=== PATIENT | female | born 1925 | race Caucasian/White ===

== ENCOUNTER 2017-04-12 13:58 | Emergency (ER) | payer MEDICARE, OTHER ==
[2017-04-12 14:24] VITALS: BP 155/74
--- NOTE | 2017-04-12 14:29 | EDM.PDOC ---
ED HPI GENERAL MEDICAL PROBLEM - General Chief Complaint: ENT Problem Stated Complaint: SENT BY [place] [facility] Time Seen by Provider: 04/12/17 14:28 Source of Information: Reports: Patient History Limitations: Reports: No Limitations - History of Present Illness INITIAL COMMENTS - FREE TEXT/NARRATIVE: 89-year-old female sent across from [place] [facility] for evaluation of suspected peritonsillar abscess formation. patient complains of right-sided throat pain with swallowing for 2 and one half days. No associated fever or chills. She does wear an upper denture but feels that they fit well. She had tonsils removed when she was a child. Hurts to swallow. She has been using occasional Tylenol tablet for pain relief. Aware of pain up underneath her right mandible in the submandibular gland distribution. patient does have type 2 diabetes controlled with insulin and oral meds. apparently a swab was carried out at the [facility] for Streptococcus and was reported as negative. Onset: Gradual Onset Date: 04/09/17 Duration: Day(s):, Constant, Getting Worse Location: Reports: Face ( right side of throat and upper neck.) Quality: Reports: Ache, Burning, Other Severity: Moderate Improves with: Reports: None ( painful to swallow) Worsens with: Reports: Eating, Other Context: Denies: Activity, Exercise, Lifting ( swallowing), Sick Contact, Trauma , Other Associated Symptoms: Reports: Confusion ( early signs of dementia with short- term memory loss.). Denies: No Other Symptoms, Chest Pain, Cough, cough w sputum Treatments INDUSTRIAL DESIGNER: Reports: Acetaminophen Throat Pain Score (Numeric/FACES): 5 - Related Data Allergies Allergy/AdvReac Type Severity Reaction Status Date / Time codeine Allergy Confusion Verified 04/12/17 16:16 hydromorphone HCl Allergy Cannot Verified 04/12/17 16:16 [From Dilaudid] Remember latex Allergy Swelling Verified 04/12/17 16:16 Home Meds: Home Meds Cholecalciferol (Vitamin D3) [Vitamin D] 1,000 unit PO DAILY 11/17/14 [History] Enalapril [Vasotec] 20 mg PO BID 11/17/14 [History] Fenofibrate Nanocrystallized [Tricor] 145 mg PO DAILY 11/17/14 [History] Metoprolol Tartrate 12.5 mg PO BID 11/17/14 [History] Multivitamin with Minerals [Multivitamins with Minerals] 1 each PO DAILY [History] Omeprazole [Prilosec] 20 mg PO DAILY 11/17/14 [History] Pravastatin [Pravachol] 40 mg PO BEDTIME 11/17/14 [History] Sertraline HCl [Zoloft] 50 mg PO DAILY 11/17/14 [History] SitaGLIPtin [Januvia] 100 mg PO DAILY 11/17/14 [History] Warfarin [Coumadin] 2 mg PO DAILY 11/17/14 [History] Acetaminophen [Tylenol] 650 mg PO Q6H PRN 01/21/15 [History] Dicyclomine [Bentyl] 20 mg PO QID PRN 01/21/15 [History] Hydrochlorothiazide 12.5 mg PO DAILY 01/21/15 [History] Insulin Aspart [Novolog] 5 unit SQ TID 01/21/15 [History] Insulin Glargine,Hum.Rec.Anlog [Lantus Solostar] 21 unit SQ DAILY 01/21/15 [ History] Loperamide [Imodium] 4 mg PO ASDIRECTED PRN 01/21/15 [History] Psyllium [Metamucil] 1.04 gm PO TID PRN 01/21/15 [History] Witch Nikky [Tucks] 1 pad TOP TID PRN 01/21/15 [History] Ciprofloxacin HCl [Cipro] 500 mg PO BID #14 tablet 01/22/15 [Rx] Ondansetron [Zofran ODT] 4 mg PO Q6H PRN #20 tab.dis 01/22/15 [Rx] Clindamycin HCl 300 mg PO TID #21 capsule 04/12/17 [Rx] Past Medical History Cardiovascular History: Reports: High Cholesterol, Hypertension Genitourinary History: Reports: Retention, Urinary, Other (See Below) ( recurrent urinary tract infections) Musculoskeletal History: Reports: Back Pain, Chronic, Neck Pain, Chronic, Osteoarthritis, Osteoporosis Neurological History: Reports: CVA ( is on 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.) Endocrine/Metabolic History: Reports: Diabetes, Type II ( controlled with insulin and oral medications.), Osteoporosis Social & Family History - Tobacco Use Smoking Status *Q: Unknown Ever Smoked Years of Tobacco use: 65 Used Tobacco, but Quit: Yes Month Tobacco Last Used: 7 yrs Second Hand Smoke Exposure: No - Alcohol Use Days Per Week of Alcohol Use: 0 - Recreational Drug Use Recreational Drug Use: No - Living Situation & Occupation Living situation: Reports: Occupation: Retired ED ROS ENT - Review of Systems Review Of Systems: See Below Constitutional: Reports: Decreased Appetite. Denies: Fever, Chills, Malaise, Weakness, Fatigue, Weight Loss HEENT: Reports: Glasses, Throat Pain ( hurts to swallow on the right side 2 and half days) Respiratory: Reports: Shortness of Breath. Denies: Cough ( on exertion) Cardiovascular: Reports: Blood Pressure Problem, Dyspnea on Exertion ( mild in the legs at times), Edema ( chronic hypertension). Denies: Chest Pain, Claudication, Lightheadedness, Orthopnea Endocrine: Reports: Fatigue ( chronically) GI/Abdominal: Reports: Constipation, Diarrhea ( she has a problem with irritable bowel syndrome with intermittent constipation and diarrhea.) : Reports: Incontinence Musculoskeletal: Reports: Neck Pain ( both urge and stress components.), Shoulder Pain, Back Pain, Joint Pain Skin: Reports: No Symptoms Neurological: Reports: Confusion ( confusion is impaired short-term memory.) Psychiatric: Reports: No Symptoms Hematologic/Lymphatic: Reports: No Symptoms ED EXAM, ENT - Physical Exam Exam: See Below Exam Limited By: Other General Appearance: Alert ( she has to look to her daughter a few times to get questions answered is can remember.), WD/WN, No Apparent Distress Eye Exam: Bilateral Eye: Normal Inspection Ears: Normal TMs Mouth/Throat: Other ( I had her remove her upper denture plate. No dental aphthous ulcers are appreciated. The denture was removed with a great deal of difficulty and she has no exudate or paste. there is exudate on the right palatine fold. There is some surrounding erythema. Exam is difficult as she gags easily. No other masses or lesions were identified.) Head: Atraumatic, Normocephalic Neck: Other ( she has tenderness on palpation of the floor the mouth on the right side in the distribution of the submandibular gland. There is no evidenc blockage of the submandibular gland on the right side.) Respiratory/Chest: Respiratory Distress ( mild tachypnea at rest due to some COPD.), Decreased Breath Sounds ( breast sounds are diminished the lower 25% of lung ramirez.). No: Rales, Rhonchi, Wheezing Cardiovascular: Regular Rate, Rhythm, No Gallop, No Murmur, No Rub Extremities: Normal Inspection, Normal Range of Motion, Non-Tender, No Pedal Edema, Normal Capillary Refill Neurological: Alert, Oriented, CN II-XII Intact, Normal Cognition, Normal Gait, Normal Reflexes, No Motor/Sensory Deficits Psychiatric: Normal Affect, Normal Mood Skin: Warm, Dry, Intact, Normal Color, No Rash Course - Vital Signs Last Recorded V/S: Last Vital Signs Temp 36.1 C 04/12/17 14:22 Pulse 65 04/12/17 14:22 Resp 20 04/12/17 14:22 BP 155/74 H 04/12/17 14:22 Pulse Ox 96 04/12/17 14:22 - Orders/Labs/Meds Orders: Active Orders 24 hr Category Date Time Status Soft Tissue Neck wo Cont [CT] Stat Exams 04/12/17 16:09 Taken CULTURE URINE [] Stat Lab 04/12/17 14:40 Received STREP SCRN A RAPID W CULT CONF [RM] Stat Lab 04/12/17 14:45 Ordered Sodium Chloride 0.9% [Normal Saline] 1,000 ml Med 04/12/17 14:45 Active IV ASDIRECTED Medication Orders Sodium Chloride (Normal Saline) 1,000 mls @ 250 mls/hr IV ASDIRECTED GAUDENCIO Last Admin: 04/12/17 15:03 Dose: 100 mls/hr Labs: Laboratory Tests 04/12/17 04/12/17 04/12/17 Range/Units 14:40 15:07 15:07 WBC 10.46 H (3.98-10.04) K/mm3 RBC 5.31 H (3.98-5.22) M/mm3 Hgb 14.8 (11.2-15.7) gm/L Hct 45.3 H (34.1-44.9) % MCV 85.3 (79.4-94.8) fl MCH 27.9 (25.6-32.2) pg MCHC 32.7 (32.2-35.5) g/dl RDW Std Deviation 44.0 (36.4-46.3) fL Plt Count 250 (182-369) K/mm3 MPV 10.7 (9.4-12.3) fl Neutrophils % (Manual) 83 H (40-60) % Band Neutrophils % 1 (0-10) % Lymphocytes % (Manual) 8 L (20-40) % Atypical Lymphs % 0 % Monocytes % (Manual) 7 (2-10) % Eosinophils % (Manual) 1 (0.7-5.8) % Basophils % (Manual) 0 L (0.1-1.2) Platelet Estimate Adequate Plt Morphology Comment Normal RBC Morph Comment Normal PT (8.0-13.0) SECONDS INR Sodium 143 (136-145) mEq/L Potassium 4.2 (3.5-5.1) mEq/L Chloride 103 (98-107) mEq/L Carbon Dioxide 31 (21-32) mEq/L Anion Gap 13.2 (5-15) BUN 55 H (7-18) mg/dL Creatinine 2.2 H (0.55-1.02) mg/dL Est Cr Clr Drug Dosing 12.45 mL/min Estimated GFR (MDRD) 21 (>60) mL/min BUN/Creatinine Ratio 25.0 H (14-18) Glucose 108 (83-115) mg/dL Calcium 9.6 (8.5-10.1) mg/dL Magnesium 2.0 (1.8-2.4) mg/dl Total Bilirubin 0.6 (0.2-1.0) mg/dL AST 27 (15-37) U/L ALT 33 (14-59) U/L Alkaline Phosphatase 72 (46-116) U/L C-Reactive Protein < 0.2 (<1.0) mg/dL Total Protein 7.4 (6.4-8.2) g/dl Albumin 4.0 (3.4-5.0) g/dl Globulin 3.4 gm/dL Albumin/Globulin Ratio 1.2 (1-2) Urine Color Yellow (Yellow) Urine Appearance Clear (Clear) Urine pH 6.5 (5.0-8.0) Ur Specific [place] 1.020 (1.005-1.030) Urine Protein Negative (Negative) Urine Glucose (UA) Negative (Negative) Urine Ketones Negative (Negative) Urine Occult Blood Negative (Negative) Urine Nitrite Negative (Negative) Urine Bilirubin Negative (Negative) Urine Urobilinogen 0.2 (0.2-1.0) Ur Leukocyte Esterase 1+ H (Negative) Urine RBC Not seen (0-5) /hpf Urine WBC 5-10 H (0-5) /hpf Ur Epithelial Cells 0-5 (0-5) /hpf Urine Bacteria Moderate H (FEW) /hpf Urine Mucus Not seen (FEW) /hpf 04/12/ Range/Units 15:07 WBC (3.98-10.04) K/mm3 RBC (3.98-5.22) M/mm3 Hgb (11.2-15.7) gm/L Hct (34.1-44.9) % MCV (79.4-94.8) fl MCH (25.6-32.2) pg MCHC (32.2-35.5) g/dl RDW Std Deviation (36.4-46.3) fL Plt Count (182-369) K/mm3 MPV (9.4-12.3) fl Neutrophils % (Manual) (40-60) % Band Neutrophils % (0-10) % Lymphocytes % (Manual) (20-40) % Atypical Lymphs % % Monocytes % (Manual) (2-10) % Eosinophils % (Manual) (0.7-5.8) % Basophils % (Manual) (0.1-1.2) Platelet Estimate Plt Morphology Comment RBC Morph Comment PT 25.8 H (8.0-13.0) SECONDS INR 2.25 Sodium (136-145) mEq/L Potassium (3.5-5.1) mEq/L Chloride (98-107) mEq/L Carbon Dioxide (21-32) mEq/L Anion Gap (5-15) BUN (7-18) mg/dL Creatinine (0.55-1.02) mg/dL Est Cr Clr Drug Dosing mL/min Estimated GFR (MDRD) (>60) mL/min BUN/Creatinine Ratio (14-18) Glucose (83-115) mg/dL Calcium (8.5-10.1) mg/dL Magnesium (1.8-2.4) mg/dl Total Bilirubin (0.2-1.0) mg/dL AST (15-37) U/L ALT (14-59) U/L Alkaline Phosphatase (46-116) U/L C-Reactive Protein (<1.0) mg/dL Total Protein (6.4-8.2) g/dl Albumin (3.4-5.0) g/dl Globulin gm/dL Albumin/Globulin Ratio (1-2) Urine Color (Yellow) Urine Appearance (Clear) Urine pH (5.0-8.0) Ur Specific [place] (1.005-1.030) Urine Protein (Negative) Urine Glucose (UA) (Negative) Urine Ketones (Negative) Urine Occult Blood (Negative) Urine Nitrite (Negative) Urine Bilirubin (Negative) Urine Urobilinogen (0.2-1.0) Ur Leukocyte Esterase (Negative) Urine RBC (0-5) /hpf Urine WBC (0-5) /hpf Ur Epithelial Cells (0-5) /hpf Urine Bacteria (FEW) /hpf Urine Mucus (FEW) /hpf Meds: Medications Generic Name Dose Route Start Last Admin Trade Name Freq PRN Reason Stop Dose Admin Sodium Chloride 1,000 mls @ 250 mls/hr 04/12/17 14:45 04/12/17 15:03 Normal Saline IV 100 mls/hr ASDIRECTED GAUDENCIO Administration Discontinued Medications Generic Name Dose Route Start Last Admin Trade Name Freq PRN Reason Stop Dose Admin Clindamycin HCl 300 mg 04/12/17 17:19 04/12/17 17:52 Cleocin PO 04/12/17 17:20 300 mg ONETIME ONE Administration Fentanyl 50 mcg 04/12/17 16:11 Sublimaze IVPUSH 04/12/17 16:12 ONETIME ONE Ceftriaxone Sodium 1 gm/ 100 mls @ 200 mls/hr 04/12/17 14:42 04/12/17 15:03 Sodium Chloride IV 04/12/17 15:11 200 mls/hr ONETIME ONE Administration Lidocaine HCl Confirm 04/12/17 14:51 04/12/17 15:04 Xylocaine-Mpf 1% Administered 04/12/17 14:52 1 ml Dose Administration 2 mls @ as directed .ROUTE .STK-MED ONE - Radiology Interpretation Free Text/Narrative:: 89-year-old female presents the ED with painful sore throat on the right side with pain with swallowing 2 and half days. No associated fever or chills. She' s had previous tonsillectomy as a child. she was seen at the [facility] initially and identified to have exudate on the right glossal palatine fold. Apparently a strep screen was carried out there and was reportedly negative. she has tenderness on palpation of the floor of the mouth on the right side and submandibular gland appears to be tender but minimally enlarged. plan repeat labs rapid strep screen. If her kidney function is okay we will have soft tissue CT done of her neck if not I will place her on antibiotics on speculation. I will start her on Rocephin 1 g IV after blood cultures 2 been collected. Of note she is afebrile on the initial exam - Re-Assessments/Exams Free Text/Narrative Re-Assessment/Exam: 04/12/17 16:11 labs are back and reveal an elevated white count at 10.46 with 83 % neutrophils and 1% band cells. Hemoglobin is 14.8 hematocrit is 45.3 platelet is 250,000 chemistry shows a sodium of 143 potassium 4.2 chloride 103 bicarbonate is 31. anion gap is 13.2 BUNs 55 creatinine is 2.2 indicating she is a bit on the dry side. urine shows 1+ positive leukocyte esterase and 510 process per per field with moderate bacteria urine culture was ordered. her PT today is 25.8 with an INR of 2.25 considered therapeutic. she still having quite a bit of pain and I will therefore give her fentanyl 50 g IV before the CT is done. CT will have to be done of soft tissue of the neck without IV contrast due to creatinine of 2.2 04/12/17 17:20 CT soft tissues of the neck is been completed without IV contrast. I felt there was a soft tissue mass in the subglottic area the right glossal palatine fold the red rubber has read the examination as unremarkable and normal. 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 He can continue Motrin 600 mg every 6-8 hours as necessary for pain relief and/or Tylenol 650 mg every 4-6 hours for pain relief. Tylenol would be safer for her kidneys. she is to expect improvement in throat swelling and pain in the next 4872 hours. If not she needs to be reviewed. Departure - Departure Time of Disposition: 17:51 Disposition: Home, Self-Care 01 Condition: Fair Clinical Impression: Pharyngitis Qualifiers: Pharyngitis/tonsillitis etiology: other specified organisms Qualified Code(s): J02.8 - Acute pharyngitis due to other specified organisms - Discharge Information Prescriptions: Clindamycin HCl 300 mg PO TID #21 capsule Instructions: Pharyngitis, [id number] Referrals: Fly German MD [Primary Care Provider] - Forms: ED Department Discharge Additional Instructions: Evaluation in the emergency department today in regards to infection that has developed in your throat on the right side. Infection is involving the glossal palatine fold the tissue behind where your tonsil used to be. concern was for an abscess developing in this area and therefore you were sent over from [facility] in this regard. CT scan of the area was carried out without any contrast as your kidneys proved to not be functioning well enough to accept any intravenous contrast agents. the CT has been completed and is does does not confirm any abscess in this area only soft tissue swelling. therefore you should respond to antibiotic therapy in initial antibiotic was given intravenously in the ED : Rocephin 1 g. you need to take pill form of antibiotic clindamycin 300 mg 3 times daily for the next 7 days starting tomorrow morning to fully clear up this infection. expect marked improvement over the next 48-72 hours. If not you should be seen again. Suggest Tylenol 650 mg every 4 hours as necessary for fever and/or pain relief. Could Motrin or ibuprofen could be used but it is harder on your kidneys. Continue to try and drink as much fluids as possible. - My Orders Last 24 Hours: My Active Orders 04/12/17 14:40 CULTURE URINE [RM] Stat 04/12/17 14:45 STREP SCRN A RAPID W CULT CONF [RM] Stat Sodium Chloride 0.9% [Normal Saline] 1,000 ml IV ASDIRECTED 04/12/17 16:09 Soft Tissue Neck wo Cont [CT] Stat - Assessment/Plan Last 24 Hours: My Active Orders 04/12/17 14:40 CULTURE URINE [RM] Stat 04/12/17 14:45 STREP SCRN A RAPID W CULT CONF [RM] Stat Sodium Chloride 0.9% [Normal Saline] 1,000 ml IV ASDIRECTED 04/12/17 16:09 Soft Tissue Neck wo Cont [CT] Stat
[2017-04-12] MEDS ORDERED: cefTRIAXone 1 GM in Sodium Chloride 0.9% 100 ML IV ONE (14:42)
[2017-04-12] MEDS ORDERED: Sodium Chloride 0.9% 1,000 ML IV SCH (14:45)
[2017-04-12] MEDS ORDERED: Lidocaine 1% 2 ML ONE (14:51)
[2017-04-12] MEDS ORDERED: fentaNYL 100 MCG/2 ML SDV IVPUSH ONE (16:11)
[2017-04-12] MEDS ORDERED: Clindamycin HCl 150 MG Cap PO ONE (17:19)
--- NOTE | 2017-04-13 17:52 | CT ---
CT neck Technique: Multiple axial sections were obtained from above the external auditory canals inferiorly to the lung apices. Intravenous contrast not utilized. Reconstructed coronal and sagittal images were obtained. Findings: Partially seen old left occipital lobe infarct is seen. Parotid and submandibular salivary glands appear within normal limits. Thyroid gland shows no discrete abnormality. No neck adenopathy is seen. Degenerative change is scattered throughout the cervical spine. Emphysematous change is noted within the upper lungs. 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 No discrete parapharyngeal abnormalities are seen. Impression: 1. Partially visualized old left occipital lobe infarct. 2. Other incidental findings. 3. No acute abnormality appreciated on noncontrast CT study of the neck. Diagnostic code #2 I agree with preliminary report issued by [facility]. Radiologic ([facility] preliminary report dictated on 04/12/17, 6:25 PM Central Time)
== END 2017-04-12 18:13 | disposition home or self-care (01) ==
LOC: JD.ED 13:58 → SUPCPDRO 13:58 → JD.ED 18:13
DX: J02.8 Acute pharyngitis due to other specified organisms (principal); E78.00 Pure hypercholesterolemia, unspecified; I10 Essential (primary) hypertension; E11.9 Type 2 diabetes mellitus without complications; Z88.5 Allergy status to narcotic agent; Z91.040 Latex allergy status; Z79.899 Other long term (current) drug therapy; Z79.01 Long term (current) use of anticoagulants; Z79.4 Long term (current) use of insulin; Z86.73 Personal history of transient ischemic attack (TIA), and cerebral infarction without residual deficits
CPT/HCPCS: 36415; 70490; 80053; 81001; 83735; 85025; 85610; 86140; 87086; 87088; 87186; 96361; 96365; 99284; A9270; J0696; J7030; J7040

== ENCOUNTER 2017-04-16 11:42 | Emergency (ER) | payer MEDICARE, OTHER ==
[2017-04-16] MEDS ORDERED: Sodium Chloride 0.9% 10 ML Syringe FLUSH PRN (12:08)
[2017-04-16] MEDS ORDERED: fentaNYL 100 MCG/2 ML SDV IVPUSH ONE (12:10)
[2017-04-16] MEDS ORDERED: Sodium Chloride 0.9% 1,000 ML IV ONE (12:10)
--- NOTE | 2017-04-16 12:11 | EDM.PDOC ---
ED HPI GENERAL MEDICAL PROBLEM - General Chief Complaint: ENT Problem Stated Complaint: Throat pain Time Seen by Provider: 04/16/17 11:55 Source of Information: Reports: Patient, Family, Old Records, RN Notes Reviewed History Limitations: Reports: No Limitations - History of Present Illness INITIAL COMMENTS - FREE TEXT/NARRATIVE: 89 year old female presents to the ED with complaints of 1 week history of throat pain and pain with swallowing. The pain radiates into her left jaw and ear. She was evaluated in the ED on 04/12/17 for the same complaint. She had a CT which is negative for retropharyngeal abscess. She was started on clindamycin as an outpatient and was discharged home. She returns today due to increasing throat pain. She has been taking Tylenol for pain with minimal relief. No known fever. She denies chest pain, shortness of breath, cough, vomiting, or diarrhea. She had a strep test and throat culture performed at [place] which was reportedly negative. She is a diabetic. Throat Pain Score (Numeric/FACES): 6 - Related Data Allergies Allergy/AdvReac Type Severity Reaction Status Date / Time codeine Allergy Confusion Verified 04/16/17 11:55 hydromorphone HCl Allergy Cannot Verified 04/16/17 11:55 [From Dilaudid] Remember latex Allergy Swelling Verified 04/16/17 11:55 Home Meds: Home Meds Cholecalciferol (Vitamin D3) [Vitamin D] 1,000 unit PO DAILY 11/17/14 [History] Enalapril [Vasotec] 20 mg PO BID 11/17/14 [History] Fenofibrate Nanocrystallized [Tricor] 145 mg PO DAILY 11/17/14 [History] Metoprolol Tartrate 12.5 mg PO BID 11/17/14 [History] Multivitamin with Minerals [Multivitamins with Minerals] 1 each PO DAILY [History] Omeprazole [Prilosec] 20 mg PO DAILY 11/17/14 [History] Pravastatin [Pravachol] 40 mg PO BEDTIME 11/17/14 [History] Sertraline HCl [Zoloft] 50 mg PO DAILY 11/17/14 [History] SitaGLIPtin [Januvia] 100 mg PO DAILY 11/17/14 [History] Warfarin [Coumadin] 2 mg PO DAILY 11/17/14 [History] Insulin Aspart [Novolog] 5 unit SQ TID 01/21/15 [History] Insulin Glargine,Hum.Rec.Anlog [Lantus Solostar] 26 unit SQ DAILY 01/21/15 [ History] Loperamide [Imodium] 4 mg PO ASDIRECTED PRN 01/21/15 [History] Psyllium [Metamucil] 1.04 gm PO TID PRN 01/21/15 [History] Witch Nikky [Tucks] 1 pad TOP TID PRN 01/21/15 [History] Ondansetron [Zofran ODT] 4 mg PO Q6H PRN #20 tab.dis 01/22/15 [Rx] Clindamycin HCl 300 mg PO TID #21 capsule 04/12/17 [Rx] Furosemide [Lasix] 40 mg PO DAILY 04/16/17 [History] Past Medical History HEENT History: Reports: Hard of Hearing, Impaired Vision Cardiovascular History: Reports: High Cholesterol, Hypertension Gastrointestinal History: Reports: GERD Genitourinary History: Reports: Retention, Urinary, Other (See Below) ( recurrent urinary tract infections) Musculoskeletal History: Reports: Back Pain, Chronic, Neck Pain, Chronic, Osteoarthritis, Osteoporosis Neurological History: Reports: CVA ( is on 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.) Other Neuro History: left occipital infarc Psychiatric History: Reports: Anxiety, Dementia Endocrine/Metabolic History: Reports: Diabetes, Type II ( controlled with insulin and oral medications.), Osteoporosis Social & Family History - Tobacco Use Smoking Status *Q: Unknown Ever Smoked Years of Tobacco use: 65 Used Tobacco, but Quit: Yes Month Tobacco Last Used: 7 yrs Second Hand Smoke Exposure: No - Caffeine Use Caffeine Use: Reports: Coffee - Alcohol Use Days Per Week of Alcohol Use: 0 - Recreational Drug Use Recreational Drug Use: No - Living Situation & Occupation Living situation: Reports: Occupation: Retired ED ROS ENT - Review of Systems Review Of Systems: See Below Constitutional: Reports: No Symptoms. Denies: Fever, Chills, Diaphoresis HEENT: Reports: Throat Pain, Other (jaw pain). Denies: Rhinitis, Sinus Problem Respiratory: Reports: No Symptoms. Denies: Shortness of Breath, Cough Cardiovascular: Reports: No Symptoms. Denies: Chest Pain, Edema GI/Abdominal: Reports: No Symptoms. Denies: Abdominal Pain, Diarrhea, Nausea, Vomiting Skin: Reports: No Symptoms. Denies: Rash Neurological: Reports: No Symptoms ED EXAM, ENT - Physical Exam Exam: See Below Exam Limited By: No Limitations General Appearance: Alert, WD/WN, No Apparent Distress Ears: Normal External Exam, Normal Canal, Hearing Grossly Normal, Normal TMs Nose: Normal Inspection, Normal Mucousa Mouth/Throat: Pharyngeal Erythema, Throat Pain, Throat Swelling, Other ( peritonsillar exudates ). No: Hoarse Voice, Muffled Voice, Uvular Deviation Head: Atraumatic, Normocephalic. No: Facial Tenderness Neck: Normal Inspection, Supple, Non-Tender, Full Range of Motion. No: Lymphadenopathy (L), Lymphadenopathy (R) Respiratory/Chest: No Respiratory Distress, Lungs Clear, Normal Breath Sounds, No Accessory Muscle Use Cardiovascular: Normal Peripheral Pulses, Regular Rate, Rhythm, No Edema, No Murmur GI/Abdominal: Normal Bowel Sounds, Soft, Non-Tender, No Distention Neurological: Alert, Oriented, Normal Cognition, Confused (forgetful) Skin: Warm, Dry, Intact Course - Vital Signs Last Recorded V/S: Last Vital Signs Temp 97.8 F 04/16/17 11:55 Pulse 78 04/16/17 14:39 Resp 18 04/16/17 14:39 BP 136/80 04/16/17 14:39 Pulse Ox 98 04/16/17 15:15 - Orders/Labs/Meds Orders: Active Orders 24 hr Category Date Time Status Peripheral IV Care [RC] . DIRECTED Care 04/16/17 12:09 Active RT Aerosol Therapy [RC] ASDIRECTED Care 04/16/17 15:15 Active CULTURE BLOOD [BC] Stat Lab 04/16/17 12:45 Received CULTURE BLOOD [BC] Stat Lab 04/16/17 12:45 Received CULTURE STREP A CONFIRMATION [RM] Stat Lab 04/16/17 15:28 Results CULTURE THROAT [RM] Stat Lab 04/16/17 15:28 Ordered MYCOPLASMA PNEUMONIAE IGM AB [CHEM] Stat Lab 04/16/17 16:00 Received RESPIRATORY PANEL BY PCR [MREF] Stat Lab 04/16/17 15:14 Uncollected STREP PNEUMONIAE ANTIGEN [MREF] Stat Lab 04/16/17 15:13 Uncollected STREP SCRN A RAPID W CULT CONF [RM] Stat Lab 04/16/17 15:28 Results UA W/MICROSCOPIC [URIN] Stat Lab 04/16/17 16:30 Results Sodium Chloride 0.9% [Normal Saline] 1,000 ml Med 04/16/17 12:10 Active IV ONETIME Sodium Chloride 0.9% [Saline Flush] Med 04/16/17 12:08 Active 10 ml FLUSH ASDIRECTED PRN Blood Culture x2 Reflex Set [OM.PC] Stat Oth 04/16/17 12:09 Ordered Peripheral IV Insertion Adult [OM.PC] Stat Oth 04/16/17 12:09 Ordered Medication Orders Sodium Chloride (Normal Saline) 1,000 mls @ 125 mls/hr IV ONETIME ONE Stop: 04/16/17 20:09 Last Admin: 04/16/17 12:50 Dose: 125 mls/hr Sodium Chloride (Saline Flush) 10 ml FLUSH ASDIRECTED PRN PRN Reason: Keep Vein Open Last Admin: 04/16/17 12:51 Dose: 10 ml Labs: Laboratory Tests 04/16/17 04/16/17 04/16/17 Range/Units 12:45 12:45 12:45 WBC 10.81 H (3.98-10.04) K/mm3 RBC 5.37 H (3.98-5.22) M/mm3 Hgb 15.0 (11.2-15.7) gm/L Hct 46.0 H (34.1-44.9) % MCV 85.7 (79.4-94.8) fl MCH 27.9 (25.6-32.2) pg MCHC 32.6 (32.2-35.5) g/dl RDW Std Deviation 45.1 (36.4-46.3) fL Plt Count 258 (182-369) K/mm3 MPV 10.3 (9.4-12.3) fl Neutrophils % (Manual) 81 H (40-60) % Band Neutrophils % 1 (0-10) % Lymphocytes % (Manual) 11 L (20-40) % Atypical Lymphs % 0 % Monocytes % (Manual) 7 (2-10) % Eosinophils % (Manual) 0 L (0.7-5.8) % Basophils % (Manual) 0 L (0.1-1.2) Platelet Estimate Adequate RBC Morph Comment Normal PT (8.0-13.0) SECONDS INR Sodium 140 (136-145) mEq/L Potassium 4.6 (3.5-5.1) mEq/L Chloride 103 (98-107) mEq/L Carbon Dioxide 30 (21-32) mEq/L Anion Gap 11.6 (5-15) BUN 47 H (7-18) mg/dL Creatinine 1.8 H (0.55-1.02) mg/dL Est Cr Clr Drug Dosing 15.22 mL/min Estimated GFR (MDRD) 26 (>60) mL/min BUN/Creatinine Ratio 26.1 H (14-18) Glucose 124 H (83-115) mg/dL Lactic Acid 1.4 (0.4-2.0) mmol/L Calcium 9.5 (8.5-10.1) mg/dL Total Bilirubin 0.6 (0.2-1.0) mg/dL AST 9 L (15-37) U/L ALT 23 (14-59) U/L Alkaline Phosphatase 68 (46-116) U/L C-Reactive Protein 0.3 (<1.0) mg/dL Total Protein 7.5 (6.4-8.2) g/dl Albumin 3.6 (3.4-5.0) g/dl Globulin 3.9 gm/dL Albumin/Globulin Ratio 0.9 L (1-2) Urine Color (Yellow) Urine Appearance (Clear) Urine pH (5.0-8.0) Ur Specific [place] (1.005-1.030) Urine Protein (Negative) Urine Glucose (UA) (Negative) Urine Ketones (Negative) Urine Occult Blood (Negative) Urine Nitrite (Negative) Urine Bilirubin (Negative) Urine Urobilinogen (0.2-1.0) Ur Leukocyte Esterase (Negative) Monoscreen (NEGATIVE) 04/16/17 04/16/17 04/16/17 Range/Units 12:45 12:45 16:30 WBC (3.98-10.04) K/mm3 RBC (3.98-5.22) M/mm3 Hgb (11.2-15.7) gm/L Hct (34.1-44.9) % MCV (79.4-94.8) fl MCH (25.6-32.2) pg MCHC (32.2-35.5) g/dl RDW Std Deviation (36.4-46.3) fL Plt Count (182-369) K/mm3 MPV (9.4-12.3) fl Neutrophils % (Manual) (40-60) % Band Neutrophils % (0-10) % Lymphocytes % (Manual) (20-40) % Atypical Lymphs % % Monocytes % (Manual) (2-10) % Eosinophils % (Manual) (0.7-5.8) % Basophils % (Manual) (0.1-1.2) Platelet Estimate RBC Morph Comment PT 38.3 H (8.0-13.0) SECONDS INR 3.26 Sodium (136-145) mEq/L Potassium (3.5-5.1) mEq/L Chloride (98-107) mEq/L Carbon Dioxide (21-32) mEq/L Anion Gap (5-15) BUN (7-18) mg/dL Creatinine (0.55-1.02) mg/dL Est Cr Clr Drug Dosing mL/min Estimated GFR (MDRD) (>60) mL/min BUN/Creatinine Ratio (14-18) Glucose (83-115) mg/dL Lactic Acid (0.4-2.0) mmol/L Calcium (8.5-10.1) mg/dL Total Bilirubin (0.2-1.0) mg/dL AST (15-37) U/L ALT (14-59) U/L Alkaline Phosphatase (46-116) U/L C-Reactive Protein (<1.0) mg/dL Total Protein (6.4-8.2) g/dl Albumin (3.4-5.0) g/dl Globulin gm/dL Albumin/Globulin Ratio (1-2) Urine Color Yellow (Yellow) Urine Appearance Slt cloudy H (Clear) Urine pH 6.5 (5.0-8.0) Ur Specific [place] 1.015 (1.005-1.030) Urine Protein Negative (Negative) Urine Glucose (UA) Negative (Negative) Urine Ketones Negative (Negative) Urine Occult Blood Negative (Negative) Urine Nitrite Negative (Negative) Urine Bilirubin Negative (Negative) Urine Urobilinogen 0.2 (0.2-1.0) Ur Leukocyte Esterase Trace H (Negative) Monoscreen Negative (NEGATIVE) Meds: Medications Generic Name Dose Route Start Last Admin Trade Name Freq PRN Reason Stop Dose Admin Sodium Chloride 1,000 mls @ 125 mls/hr 04/16/17 12:10 04/16/17 12:50 Normal Saline IV 04/16/17 20:09 125 mls/hr ONETIME ONE Administration Sodium Chloride 10 ml 04/16/17 12:08 04/16/17 12:51 Saline Flush FLUSH 10 ml ASDIRECTED PRN Administration Keep Vein Open Discontinued Medications Generic Name Dose Route Start Last Admin Trade Name Freq PRN Reason Stop Dose Admin Albuterol 2.5 mg 04/16/17 15:15 04/16/17 15:23 Proventil Neb Soln NEB 04/16/17 15:16 2.5 mg ONETIME ONE Administration Fentanyl 50 mcg 04/16/17 12:10 04/16/17 12:48 Sublimaze IVPUSH 04/16/17 12:11 50 mcg ONETIME ONE Administration Ceftriaxone Sodium 1 gm/ 100 mls @ 200 mls/hr 04/16/17 13:22 04/16/17 13:38 Sodium Chloride IV 04/16/17 13:51 200 mls/hr ONETIME ONE Administration - Re-Assessments/Exams Free Text/Narrative Re-Assessment/Exam: CBC reveals WBC of 10.81 with no bandemia. CRP and lactic acid are WNL. CMP reveals glucose of 124, creatinine 1.8, BUN 47, GFR 26. Mononucleosis negative. Repeat throat culture was obtained. Negative for strep. ROLO ordered of the throat and is negative for yeast. CTs of maxillofacial bones and soft tissue neck read by Dr. Leon. Impression: The patient's oxygen saturation on arrival was dropping into the 70s. She required oxygen at 3L to maintain SaO2 > 90%. She has no history of pulmonary disease and does not wear oxygen at home. We administered an Albuterol neb and then weaned the oxygen. After the albuterol neb, she continued to drop her SaO2 into the 80s. Chest x-ray read by Edward. Impression: Heart size appears within normal limits. Tortuous thoracic aorta is seen. Lung markings are slightly increased which are believed to be chronic. No acute infiltrates are seen. Scoliosis is incidentally noted within the spine. Surgical clips are seen from prior cholecystectomy. Neck Impression: 1. Incidental findings. Nothing acute is identified on CT study of the neck. No significant change is seen from previous exam. Maxillofacial Impression: 1. Minimal degenerative change within the temporomandibular joints on the right side. 2. CT facial bone exam is otherwise unremarkable. The cause of the patient's symptoms is unclear. She has failed outpatient antibiotics and is requiring oxygen. I spoke to Dr. Sorto who agrees that this patient needs to be admitted for further workup. I spoke to our Hospitalist Dr. Montgomery who feels the patient needs urgent ENT referral and transfer to [facility]. Patient and daughter requested [facility] as they are established with Dr. German. I called [facility] and spoke to ENT specialist Dr. Michael regarding this patient. He is happy to see her in consult and agrees with urgent referral. I then spoke to Dr. Blanchard, Hospitalist. Dr. Blanchard accepted care of the patient. He plans to admit her to observation upon arrival. Patient will be transported via [facility]. Patient and family notified of plan of care. Departure - Departure Time of Disposition: 17:01 Disposition: DC/Tfer to [facility] 02 Condition: Fair Clinical Impression: Low oxygen saturation, Erythema of pharynx Pharyngitis Qualifiers: Pharyngitis/tonsillitis etiology: other specified organisms Qualified Code(s): J02.8 - Acute pharyngitis due to other specified organisms - Discharge Information Referrals: Fly German MD [Primary Care Provider] - Forms: ED Department Discharge - My Orders Last 24 Hours: My Active Orders 04/16/17 12:08 Sodium Chloride 0.9% [Saline Flush] 10 ml FLUSH ASDIRECTED PRN 04/16/17 12:09 Peripheral IV Care [RC] . DIRECTED Blood Culture x2 Reflex Set [OM.PC] Stat Peripheral IV Insertion Adult [OM.PC] Stat 04/16/17 12:10 Sodium Chloride 0.9% [Normal Saline] 1,000 ml IV ONETIME 04/16/17 12:45 CULTURE BLOOD [BC] Stat CULTURE BLOOD [BC] Stat 04/16/17 15:13 STREP PNEUMONIAE ANTIGEN [MREF] Stat 04/16/17 15:14 RESPIRATORY PANEL BY PCR [MREF] Stat 04/16/17 15:15 RT Aerosol Therapy [RC] ASDIRECTED 04/16/17 15:28 CULTURE STREP A CONFIRMATION [RM] Stat CULTURE THROAT [RM] Stat STREP SCRN A RAPID W CULT CONF [RM] Stat 04/16/17 16:00 MYCOPLASMA PNEUMONIAE IGM AB [CHEM] Stat 04/16/17 16:30 UA W/MICROSCOPIC [URIN] Stat - Assessment/Plan Last 24 Hours: My Active Orders 04/16/17 12:08 Sodium Chloride 0.9% [Saline Flush] 10 ml FLUSH ASDIRECTED PRN 04/16/17 12:09 Peripheral IV Care [RC] . DIRECTED Blood Culture x2 Reflex Set [OM.PC] Stat Peripheral IV Insertion Adult [OM.PC] Stat 04/16/17 12:10 Sodium Chloride 0.9% [Normal Saline] 1,000 ml IV ONETIME 04/16/17 12:45 CULTURE BLOOD [BC] Stat CULTURE BLOOD [BC] Stat 04/16/17 15:13 STREP PNEUMONIAE ANTIGEN [MREF] Stat 04/16/17 15:14 RESPIRATORY PANEL BY PCR [MREF] Stat 04/16/17 15:15 RT Aerosol Therapy [RC] ASDIRECTED 04/16/17 15:28 CULTURE STREP A CONFIRMATION [RM] Stat CULTURE THROAT [RM] Stat STREP SCRN A RAPID W CULT CONF [RM] Stat 04/16/17 16:00 MYCOPLASMA PNEUMONIAE IGM AB [CHEM] Stat 04/16/17 16:30 UA W/MICROSCOPIC [URIN] Stat
--- NOTE | 2017-04-16 12:52 | CR ---
Chest: Two views of the chest were obtained. Comparison: Previous chest x-ray of 11/17/14. Heart size appears within normal limits. Tortuous thoracic aorta is seen. Lung markings are slightly increased which are believed to be chronic. No acute infiltrates are seen. Scoliosis is incidentally noted within the spine. Surgical clips are seen from prior cholecystectomy. Impression: 1. Incidental findings. Nothing acute is seen. Diagnostic code #2
[2017-04-16] MEDS ORDERED: cefTRIAXone 1 GM in Sodium Chloride 0.9% 100 ML IV ONE (13:22)
[2017-04-16 14:40] VITALS: BP 136/80
--- NOTE | 2017-04-16 14:48 | CT ---
CT facial bones Technique: Multiple axial sections were obtained through the facial bones. Reconstructed coronal and sagittal images were reviewed. Findings: Paranasal sinuses are clear. No air-fluid levels are seen. Minimal degenerative change is noted within the right temporomandibular joint. No facial bone fracture is seen. Impression: 1. Minimal degenerative change within the temporomandibular joints on the right side. 2. CT facial bone exam is otherwise unremarkable. Diagnostic code #2
[2017-04-16] MEDS ORDERED: Albuterol 0.083% 2.5 MG/3 ML Neb Soln NEB ONE (15:15)
--- NOTE | 2017-04-16 15:37 | CT ---
CT neck Technique: Multiple axial sections through the neck were obtained. Study slightly diminished in details due to lack of intravenous contrast. Reconstructed coronal and sagittal images were obtained. Comparison: Previous CT neck exam of 04/12/17. Findings: Parotid and submandibular salivary glands appear within normal limits. Small normal-appearing lymph nodes are scattered within the neck. Thyroid gland shows no discrete abnormality. No neck mass is seen. Old left occipital lobe infarct is again seen. Emphysematous change is identified within both upper lungs. Scattered degenerative change is seen within the spine. Impression: 1. Incidental findings. Nothing acute is identified on CT study of the neck. No significant change is seen from previous exam. Diagnostic code #2
[2017-04-16] MEDS ORDERED: Ondansetron 4 MG/2 ML SDV IVPUSH ONE (17:31)
== END 2017-04-16 18:10 ==
LOC: JD.ED 11:42
DX: J02.8 Acute pharyngitis due to other specified organisms (principal); R09.02 Hypoxemia; E78.00 Pure hypercholesterolemia, unspecified; I10 Essential (primary) hypertension; K21.9 Gastro-esophageal reflux disease without esophagitis; M19.90 Unspecified osteoarthritis, unspecified site; Z86.73 Personal history of transient ischemic attack (TIA), and cerebral infarction without residual deficits; Z88.5 Allergy status to narcotic agent; Z91.040 Latex allergy status; Z79.899 Other long term (current) drug therapy; Z79.4 Long term (current) use of insulin; Z79.01 Long term (current) use of anticoagulants; E11.9 Type 2 diabetes mellitus without complications
CPT/HCPCS: 36415; 70486; 70490; 71020; 80053; 81001; 83605; 85025; 85610; 86140; 86308; 86738; 87040; 87070; 87220; 87430; 87486; 87581; 87633; 87798; 87899; 94664; 96361; 96365; 96375; 99285; J0696; J2405; J3010; J7030; J7040; J7050; 87081; 99284

== ENCOUNTER 2017-05-01 08:50 | Emergency (ER) | payer MEDICARE, OTHER ==
[2017-05-01] MEDS ORDERED: Sodium Chloride 0.9% 10 ML Syringe FLUSH PRN (09:10)
[2017-05-01] MEDS ORDERED: predniSONE 20 MG Tab PO ONE (09:12)
--- NOTE | 2017-05-01 09:13 | EDM.PDOC ---
ED HPI GENERAL MEDICAL PROBLEM - General Chief Complaint: Neuro Symptoms/Deficits Stated Complaint: POSSIBLE STROKE Time Seen by Provider: 05/01/17 09:08 Source of Information: Reports: Patient History Limitations: Reports: No Limitations - History of Present Illness INITIAL COMMENTS - FREE TEXT/NARRATIVE: 89 y/o F with hx prior CVA (had R sided numbness and vision changes), memory loss, HTN, DM, presents with R facial droop. Was normal when she went to bed last night. Noticed it when she looked in the mirror this AM. Has droop/ weakness of R upper and lower face. Can't shut R eye tight. No additional weakness. No difficulty speaking/swallowing. No vision changes. No extremity weakness or numbness. No hx prior similar symptoms. Has moderate headache, diffuse, present x a few days, taking APAP for BUI with no relief. Doesn't usually get headache. Has also had a sore throat x many days, was seen here, rx clinda at some point, and was also hospitalized in [place] for kidney injury which daughter reports was thought due to dehydration from throat pain. Released after 3 days. Daughter is under impressoin that kidneys are back to normal now. Sore throat resolved. Continues to have pain in R ear area. Headache Pain Score (Numeric/FACES): 8 - Related Data Allergies Allergy/AdvReac Type Severity Reaction Status Date / Time codeine Allergy Confusion Verified 05/01/17 09:06 hydromorphone HCl Allergy Cannot Verified 05/01/17 09:06 [From Dilaudid] Remember latex Allergy Swelling Verified 05/01/17 09:06 Home Meds: Home Meds Cholecalciferol (Vitamin D3) [Vitamin D] 1,000 unit PO DAILY 11/17/14 [History] Enalapril [Vasotec] 20 mg PO BID 11/17/14 [History] Fenofibrate Nanocrystallized [Tricor] 145 mg PO DAILY 11/17/14 [History] Metoprolol Tartrate 12.5 mg PO BID 11/17/14 [History] Multivitamin with Minerals [Multivitamins with Minerals] 1 each PO DAILY [History] Omeprazole [Prilosec] 20 mg PO DAILY 11/17/14 [History] Pravastatin [Pravachol] 40 mg PO BEDTIME 11/17/14 [History] Sertraline HCl [Zoloft] 50 mg PO DAILY 11/17/14 [History] SitaGLIPtin [Januvia] 100 mg PO DAILY 11/17/14 [History] Warfarin [Coumadin] 2 mg PO DAILY 11/17/14 [History] Insulin Aspart [Novolog] 5 unit SQ TID 01/21/15 [History] Insulin Glargine,Hum.Rec.Anlog [Lantus Solostar] 26 unit SQ DAILY 01/21/15 [ History] Psyllium [Metamucil] 1.04 gm PO TID PRN 01/21/15 [History] Witch Nikky [Tucks] 1 pad TOP TID PRN 01/21/15 [History] Clindamycin HCl 300 mg PO TID #21 capsule 04/12/17 [Rx] Furosemide [Lasix] 40 mg PO DAILY 04/16/17 [History] Diphenhyd/Lidocaine/Nystatin [Magic Mouthwash] 30 ml PO QID PRN 05/01/17 [ History] Mineral Oil/Petrolatum Oint [Lacri-Lube S.O.P Oint] 3.5 gm EYEBOTH BEDTIME #1 tube 05/01/17 [Rx] predniSONE [Prednisone] 50 mg PO DAILY #5 tablet 05/01/17 [Rx] valACYclovir [Valtrex] 1,000 mg PO TID #21 tab 05/01/17 [Rx] Past Medical History HEENT History: Reports: Hard of Hearing, Impaired Vision Cardiovascular History: Reports: High Cholesterol, Hypertension Gastrointestinal History: Reports: GERD Genitourinary History: Reports: Retention, Urinary, Other (See Below) Musculoskeletal History: Reports: Back Pain, Chronic, Neck Pain, Chronic, Osteoarthritis, Osteoporosis Neurological History: Reports: CVA Other Neuro History: left occipital infarc Psychiatric History: Reports: Anxiety, Dementia Endocrine/Metabolic History: Reports: Diabetes, Type II, Osteoporosis Social & Family History - Tobacco Use Smoking Status *Q: Never Smoker Years of Tobacco use: 63 Used Tobacco, but Quit: Yes Month Tobacco Last Used: 7 yrs Second Hand Smoke Exposure: No - Caffeine Use Caffeine Use: Reports: Coffee - Alcohol Use Days Per Week of Alcohol Use: 0 - Recreational Drug Use Recreational Drug Use: No - Living Situation & Occupation Living situation: Reports: Occupation: Retired ED ROS GENERAL - Review of Systems Review Of Systems: See Below Constitutional: Denies: Fever HEENT: Denies: Vision Change Respiratory: Denies: Shortness of Breath Cardiovascular: Denies: Chest Pain Endocrine: Reports: No Symptoms GI/Abdominal: Denies: Abdominal Pain : Denies: Dysuria Musculoskeletal: Reports: No Symptoms Skin: Reports: No Symptoms Neurological: Reports: Dizziness, Headache Psychiatric: Reports: No Symptoms Hematologic/Lymphatic: Reports: No Symptoms Immunologic: Reports: No Symptoms ED EXAM, NEURO - Physical Exam Exam: See Below Exam Limited By: No Limitations General Appearance: Alert, WD/WN, No Apparent Distress Eye Exam: Right Eye: Other (R eyelid weakness, unable to fully close R eye), Bilateral Eye: EOMI, PERRL Ears: Normal External Exam, Normal Canal, Hearing Grossly Normal, Normal TMs Nose: Normal Inspection, Normal Mucosa, No Blood Throat/Mouth: Normal Inspection, Normal Oropharynx, Normal Voice, No Airway Compromise Head Exam: Atraumatic, Normocephalic Neck: Normal Inspection, Supple, Non-Tender, Full Range of Motion Respiratory/Chest: No Respiratory Distress, Lungs Clear, Normal Breath Sounds, No Accessory Muscle Use Cardiovascular: Normal Peripheral Pulses, No Edema, No Murmur GI/Abdominal: Soft, Non-Tender, No Distention Neurological: Alert, Normal Mood/Affect, Normal Dorsiflexion, Normal Plantar Flexion, Normal Gait, Oriented x 3, Other (facial droop affecting R upper and lower face. CN exam otherwise normal.) Back Exam: Normal Inspection Extremities: Normal Inspection, Normal Range of Motion, Non-Tender, No Pedal Edema Psychiatric: Normal Affect, Normal Mood Skin Exam: Warm, Dry, Intact, Normal Color, No Rash Course - Vital Signs Last Recorded V/S: Last Vital Signs Temp 36.7 C 05/01/17 08:55 Pulse 89 05/01/17 09:29 Resp 16 05/01/17 08:55 BP 162/93 H 05/01/17 09:29 Pulse Ox - Orders/Labs/Meds Orders: Active Orders 24 hr Category Date Time Status Blood Glucose Check, Bedside [RC] ONETIME Care 05/01/17 09:56 Active Peripheral IV Care [RC] . DIRECTED Care 05/01/17 09:10 Active Metoprolol Succinate [Toprol XL] Med 05/01/17 09:15 Active 12.5 mg PO DAILY Sodium Chloride 0.9% [Saline Flush] Med 05/01/17 09:10 Active 10 ml FLUSH ASDIRECTED PRN valACYclovir [Valtrex] Med 05/01/17 09:15 Active 1,000 mg PO DAILY Peripheral IV Insertion Adult [OM.PC] Routine Oth 05/01/17 09:10 Ordered EKG 12 Lead [EK] Stat Ther 05/01/17 09:12 Ordered Medication Orders Metoprolol Succinate (Toprol Xl) 12.5 mg PO DAILY [facility] Last Admin: 05/01/17 09:29 Dose: 12.5 mg Sodium Chloride (Saline Flush) 10 ml FLUSH ASDIRECTED PRN PRN Reason: Keep Vein Open Last Admin: 05/01/17 09:35 Dose: 10 ml Valacyclovir HCl (Valtrex) 1,000 mg PO DAILY [facility] Last Admin: 05/01/17 09:28 Dose: 1,000 mg Labs: Laboratory Tests 05/01/17 05/01/17 05/01/17 Range/Units 08:55 09:00 09:00 WBC 9.61 (3.98-10.04) K/mm3 RBC 5.45 H (3.98-5.22) M/mm3 Hgb 15.2 (11.2-15.7) gm/L Hct 46.4 H (34.1-44.9) % MCV 85.1 (79.4-94.8) fl MCH 27.9 (25.6-32.2) pg MCHC 32.8 (32.2-35.5) g/dl RDW Std Deviation 44.2 (36.4-46.3) fL Plt Count 298 (182-369) K/mm3 MPV 10.7 (9.4-12.3) fl Neut % (Auto) 78.1 H (34.0-71.1) % Lymph % (Auto) 8.6 L (19.3-51.7) % Glynn % (Auto) 9.5 (4.7-12.5) % Eos % (Auto) 3.1 (0.7-5.8) Baso % (Auto) 0.3 (0.1-1.2) % Neut # (Auto) 7.50 H (1.56-6.13) K/mm3 Lymph # (Auto) 0.83 L (1.18-3.74) K/mm3 Glynn # (Auto) 0.91 H (0.24-0.36) K/mm3 Eos # (Auto) 0.30 (0.04-0.36) K/mm3 Baso # (Auto) 0.03 (0.01-0.08) K/mm3 Manual Slide Review Abnormal smear PT 33.9 H (8.0-13.0) SECONDS INR 2.91 Sodium (136-145) mEq/L Potassium (3.5-5.1) mEq/L Chloride (98-107) mEq/L Carbon Dioxide (21-32) mEq/L Anion Gap (5-15) BUN (7-18) mg/dL Creatinine (0.55-1.02) mg/dL Est Cr Clr Drug Dosing mL/min Estimated GFR (MDRD) (>60) mL/min BUN/Creatinine Ratio (14-18) Glucose (83-115) mg/dL POC Glucose 164 H (83-110) mg/dL Calcium (8.5-10.1) mg/dL Total Bilirubin (0.2-1.0) mg/dL AST (15-37) U/L ALT (14-59) U/L Alkaline Phosphatase (46-116) U/L Troponin I (0.00-0.056) ng/mL Total Protein (6.4-8.2) g/dl Albumin (3.4-5.0) g/dl Globulin gm/dL Albumin/Globulin Ratio (1-2) 05/01/17 Range/Units 09:00 WBC (3.98-10.04) K/mm3 RBC (3.98-5.22) M/mm3 Hgb (11.2-15.7) gm/L Hct (34.1-44.9) % MCV (79.4-94.8) fl MCH (25.6-32.2) pg MCHC (32.2-35.5) g/dl RDW Std Deviation (36.4-46.3) fL Plt Count (182-369) K/mm3 MPV (9.4-12.3) fl Neut % (Auto) (34.0-71.1) % Lymph % (Auto) (19.3-51.7) % Glynn % (Auto) (4.7-12.5) % Eos % (Auto) (0.7-5.8) Baso % (Auto) (0.1-1.2) % Neut # (Auto) (1.56-6.13) K/mm3 Lymph # (Auto) (1.18-3.74) K/mm3 Glynn # (Auto) (0.24-0.36) K/mm3 Eos # (Auto) (0.04-0.36) K/mm3 Baso # (Auto) (0.01-0.08) K/mm3 Manual Slide Review PT (8.0-13.0) SECONDS INR Sodium 142 (136-145) mEq/L Potassium 3.9 (3.5-5.1) mEq/L Chloride 104 (98-107) mEq/L Carbon Dioxide 29 (21-32) mEq/L Anion Gap 12.9 (5-15) BUN 31 H (7-18) mg/dL Creatinine 1.6 H (0.55-1.02) mg/dL Est Cr Clr Drug Dosing 17.12 mL/min Estimated GFR (MDRD) 30 (>60) mL/min BUN/Creatinine Ratio 19.4 H (14-18) Glucose 167 H (83-115) mg/dL POC Glucose (83-110) mg/dL Calcium 9.3 (8.5-10.1) mg/dL Total Bilirubin 0.7 (0.2-1.0) mg/dL AST 29 (15-37) U/L ALT 29 (14-59) U/L Alkaline Phosphatase 82 (46-116) U/L Troponin I < 0.017 (0.00-0.056) ng/mL Total Protein 7.3 (6.4-8.2) g/dl Albumin 3.8 (3.4-5.0) g/dl Globulin 3.5 gm/dL Albumin/Globulin Ratio 1.1 (1-2) Meds: Medications Generic Name Dose Route Start Last Admin Trade Name Freq PRN Reason Stop Dose Admin Metoprolol Succinate 12.5 mg 05/01/17 09:15 05/01/17 09:29 Toprol Xl PO 12.5 mg DAILY GAUDENCIO Administration Sodium Chloride 10 ml 05/01/17 09:10 09/22/17 09:35 Saline Flush FLUSH 10 ml ASDIRECTED PRN Administration Keep Vein Open Valacyclovir HCl 1,000 mg 05/01/17 09:15 05/01/17 09:28 Valtrex PO 1,000 mg DAILY GAUDENCIO Administration Discontinued Medications Generic Name Dose Route Start Last Admin Trade Name Yahaira PRN Reason Stop Dose Admin Enalapril Maleate 20 mg 05/01/17 09:10 05/01/17 09:25 Vasotec PO 05/01/17 09:11 20 mg ONETIME ONE Administration Insulin Aspart 5 unit 05/01/17 09:56 05/01/17 10:12 Novolog SUBCUT 05/01/17 09:57 5 unit STAT STA Administration Insulin Detemir 26 unit 05/01/17 09:58 05/01/17 10:12 Levemir SUBCUT 05/01/17 09:59 26 unit ONETIME ONE Administration Prednisone 60 mg 05/01/17 09:12 05/01/17 09:29 Prednisone PO 05/01/17 09:13 60 mg ONETIME ONE Administration - Re-Assessments/Exams Free Text/Narrative Re-Assessment/Exam: 05/01/17 11:26 Exam consistent with Wilson's palsy. CT scan ordered given headache and also complaint of right ear pain. CT head and max face show no acute abnormalities. Discussed management of else palsy and usual course. Given that this is very early in her disease a do think she may benefit from steroids and valacyclovir. Discussed that the steroids may increase her blood sugars and discussed risks and benefits of this. She may stop the steroid will increase her insulin if it is causing high blood sugars for her. Also encouraged her to have an INR checked next week. Discussed return precautions. Discussed eye care. Departure - Departure Time of Disposition: 10:52 Disposition: Home, Self-Care 01 Clinical Impression: Wilson's palsy - Discharge Information Prescriptions: Mineral Oil/Petrolatum Oint [Lacri-Lube S.O.P Oint] 3.5 gm EYEBOTH BEDTIME #1 tube predniSONE [Prednisone] 50 mg PO DAILY #5 tablet valACYclovir [Valtrex] 1,000 mg PO TID #21 tab Instructions: Wilson Palsy Referrals: Fly German MD [Primary Care Provider] - Forms: ED Department Discharge Additional Instructions: 1. Take prednisone as prescribed. First dose tomorrow. This medication may cause your blood sugar to be higher than usual. If higher than usual, discuss with your doctor whether to increase insulin or stop the prednisone. 2. Take valacyclovir as prescribed. This is an anti-viral medication that may help you get better faster. Next dose should be this afternoon, then again tonight before bedtime. 3. Use artificial tear drops throughout the day to protect your eye. Use eye ointment at night as prescribed to keep eye lubricated overnight. You may also try to wear a protective eye patch or glasses at night to protect your eye while sleeping. 4. Follow up with your primary doctor next week. Get your INR checked early next week. 5. Return to the ED if you have any new or concerning symptoms over the weakness, including new weakness, difficulty speaking, severe headache, or any other concerns. - My Orders Last 24 Hours: My Active Orders 05/01/17 09:10 Peripheral IV Care [RC] . DIRECTED Sodium Chloride 0.9% [Saline Flush] 10 ml FLUSH ASDIRECTED PRN Peripheral IV Insertion Adult [OM.PC] Routine 05/01/17 09:12 EKG 12 Lead [EK] Stat 05/01/17 09:15 Metoprolol Succinate [Toprol XL] 12.5 mg PO DAILY valACYclovir [Valtrex] 1,000 mg PO DAILY 05/01/17 09:56 Blood Glucose Check, Bedside [] ONETIME - Assessment/Plan Last 24 Hours: My Active Orders 05/01/17 09:10 Peripheral IV Care [RC] . DIRECTED Sodium Chloride 0.9% [Saline Flush] 10 ml FLUSH ASDIRECTED PRN Peripheral IV Insertion Adult [OM.PC] Routine 05/01/17 09:12 EKG 12 Lead [EK] Stat 05/01/17 09:15 Metoprolol Succinate [Toprol XL] 12.5 mg PO DAILY valACYclovir [Valtrex] 1,000 mg PO DAILY 05/01/17 09:56 Blood Glucose Check, Bedside [] ONETIME
[2017-05-01] MEDS ORDERED: Metoprolol Succinate 25 MG Tab.ER PO SCH (09:15)
[2017-05-01] MEDS ORDERED: valACYclovir 1,000 MG Tab PO SCH (09:15)
[2017-05-01 09:31] VITALS: BP 162/93
--- NOTE | 2017-05-01 09:52 | CT ---
Head CT Technique: Multiple axial sections through the brain were obtained. Intravenous contrast was not utilized. Comparison: Prior head CT exam of 01/21/15. Findings: Ventricles along with basal cisterns and sulci over the convexities are mildly prominent. Old infarct is again seen within the left occipital lobe. Diminished density is noted within the periventricular and subcortical white matter which is compatible with small vessel ischemic demyelination change. Several old lacunar infarcts are noted within the basal ganglia. No other abnormal parenchymal densities are seen. No evidence of intracranial hemorrhage. No midline shift or mass effect is appreciated. Bone window settings were reviewed which shows the visualized sinuses to appear clear. No acute calvarial abnormality is identified. Impression: 1. Senescent change as described above. 2. No acute intracranial abnormality is identified on noncontrast head CT study. Diagnostic code #2
--- NOTE | 2017-05-01 09:55 | CT ---
Maxillofacial CT Technique: Multiple axial sections were obtained from below the mandible superiorly through the frontal sinuses. Intravenous contrast was not utilized. Findings: Paranasal sinuses are clear. No mucosal thickening or air-fluid levels are seen. Mild degenerative change is noted within the right temporomandibular joint. Parotid salivary glands are within normal limits. Small calcification is seen next to the right submandibular salivary gland which is likely incidental. No adenopathy is seen within the visualized facial structures/neck. Mild degenerative change is noted within the spine. No facial bone fracture is seen. Impression: 1. Incidental findings. Nothing acute is appreciated. Diagnostic code #2
[2017-05-01] MEDS ORDERED: Insulin Aspart 100 Units/ML 3 ML Pen SUBCUT STA (09:56)
[2017-05-01] MEDS ORDERED: Insulin Detemir 100 Units/ML 3 ML Pen SUBCUT ONE (09:58)
== END 2017-05-01 11:10 | disposition home or self-care (01) ==
LOC: JD.ED 08:50
DX: G51.0 Bell's palsy (principal); I10 Essential (primary) hypertension; K21.9 Gastro-esophageal reflux disease without esophagitis; F41.9 Anxiety disorder, unspecified; F03.90 Unspecified dementia, unspecified severity, without behavioral disturbance, psychotic disturbance, mood disturbance, and anxiety; E11.9 Type 2 diabetes mellitus without complications; Z88.5 Allergy status to narcotic agent; Z91.040 Latex allergy status; Z79.01 Long term (current) use of anticoagulants; Z79.899 Other long term (current) drug therapy; Z79.4 Long term (current) use of insulin
CPT/HCPCS: 36415; 70450; 70486; 80053; 82962; 84484; 85025; 85610; 93005; 96372; 99285; A9270; J1815; J7050; 99284

== ENCOUNTER 2017-08-29 18:10 | Inpatient (IN) | payer MEDICARE, OTHER ==
[2017-08-29] MEDS ORDERED: Sodium Chloride 0.9% 1,000 ML IV ONE (18:37)
[2017-08-29] MEDS ORDERED: Sodium Chloride 0.9% 10 ML Syringe FLUSH PRN (18:38)
[2017-08-29] MEDS ORDERED: Sodium Chloride 0.9% 500 ML IV ONE (18:41)
--- NOTE | 2017-08-29 19:35 | CT ---
Head CT Technique: Multiple axial sections through the brain were obtained. Intravenous contrast was not utilized. Comparison: Prior head CT exam of 05/01/17. Findings: Ventricles along with basal cisterns and sulci over the convexities are mildly prominent. Old infarct is noted within left occipital region which is stable. Diminished density is noted within the periventricular and subcortical white matter compatible with small vessel ischemic demyelination change which is stable. Several old lacunar infarcts are noted within the basal ganglia which are stable. No evidence of intracranial hemorrhage. No midline shift or mass effect is seen. Bone window settings were reviewed which shows no acute calvarial abnormality. Visualized sinuses are clear. Impression: 1. Senescent change as noted above. No acute intracranial abnormality is seen. No appreciable change is seen from previous head CT exam. Diagnostic code #2
--- NOTE | 2017-08-29 19:42 | EDM.PDOC ---
ED HPI GENERAL MEDICAL PROBLEM - General Chief Complaint: Lower Extremity Injury/Pain Stated Complaint: [facility] Time Seen by Provider: 08/29/17 18:26 Source of Information: Reports: Patient, EMS History Limitations: Reports: No Limitations - History of Present Illness INITIAL COMMENTS - FREE TEXT/NARRATIVE: 89-year-old female arrives via [facility] for evaluation and treatment of injuries sustained from a fall. Reportedly the patient lives at [facility]. She was last seen around 1300 this afternoon. Found by alf staff around 17:30. Unknown how she fell. Unknown how long she was down for. Upon arrival to the ER she is orientated to person, place and time. However , she does not recall falling or what happened. She is complaining of pain to the right hip, right shoulder, right elbow and right hand. Denies any headache, neck pain, chest pain, shortness of breath, abdominal pain, lightheadedness or dizziness. Patient is on coumadin. Patient is a diabetic. bedside blood sugar is 223. - Related Data Allergies Allergy/AdvReac Type Severity Reaction Status Date / Time codeine Allergy Confusion Verified 08/29/17 18:24 hydromorphone HCl Allergy Cannot Verified 08/29/17 18:24 [From Dilaudid] Remember latex Allergy Swelling Verified 08/29/17 18:24 Home Meds: Home Meds Cholecalciferol (Vitamin D3) [Vitamin D] 1,000 unit PO DAILY 11/17/14 [History] Enalapril [Vasotec] 20 mg PO BID 11/17/14 [History] Fenofibrate Nanocrystallized [Tricor] 145 mg PO DAILY 11/17/14 [History] Metoprolol Tartrate 12.5 mg PO BID 11/17/14 [History] Multivitamin with Minerals [Multivitamins with Minerals] 1 each PO DAILY [History] Omeprazole [Prilosec] 20 mg PO DAILY 11/17/14 [History] Pravastatin [Pravachol] 40 mg PO BEDTIME 11/17/14 [History] Sertraline HCl [Zoloft] 50 mg PO DAILY 11/17/14 [History] SitaGLIPtin [Januvia] 100 mg PO DAILY 11/17/14 [History] Warfarin [Coumadin] 2 mg PO DAILY 11/17/14 [History] Psyllium [Metamucil] 1.04 gm PO TID PRN 01/21/15 [History] Edda Kurtzel [Tucks] 1 pad TOP TID PRN 01/21/15 [History] Furosemide [Lasix] 40 mg PO DAILY 04/16/17 [History] Diphenhyd/Lidocaine/Nystatin [Magic Mouthwash] 30 ml PO QID PRN 05/01/17 [ History] Acetaminophen [Tylenol Arthritis] 1 tab PO Q6HR PRN 08/29/17 [History] Ondansetron [Zofran ODT] 4 mg SL Q6HR PRN 08/29/17 [History] Warfarin [Coumadin] 2 mg PO ASDIRECTED 08/29/17 [History] Past Medical History HEENT History: Reports: Hard of Hearing, Impaired Vision Cardiovascular History: Reports: High Cholesterol, Hypertension Gastrointestinal History: Reports: GERD Genitourinary History: Reports: Retention, Urinary, Other (See Below) Musculoskeletal History: Reports: Back Pain, Chronic, Neck Pain, Chronic, Osteoarthritis, Osteoporosis Neurological History: Reports: CVA Other Neuro History: left occipital infarc Psychiatric History: Reports: Anxiety, Dementia Endocrine/Metabolic History: Reports: Diabetes, Type II, Osteoporosis Social & Family History - Tobacco Use Smoking Status *Q: Never Smoker Years of Tobacco use: 63 Used Tobacco, but Quit: Yes Month Tobacco Last Used: 7 yrs Second Hand Smoke Exposure: No - Caffeine Use Caffeine Use: Reports: Coffee - Alcohol Use Days Per Week of Alcohol Use: 0 - Recreational Drug Use Recreational Drug Use: No - Living Situation & Occupation Living situation: Reports: Occupation: Retired Review of Systems - Review of Systems Review Of Systems: See Below Respiratory: Denies: Shortness of Breath Cardiovascular: Denies: Chest Pain GI/Abdominal: Denies: Abdominal Pain Musculoskeletal: Reports: Shoulder Pain (right), Hand Pain (right), Joint Pain ( reports right hip pain). Denies: Neck Pain Skin: Reports: Bruising (and abraions to the right humerus), Wound ( erythematous abrasions to the right face) Neurological: Reports: Syncope. Denies: Headache ED EXAM, GENERAL - Physical Exam Exam: See Below Exam Limited By: No Limitations General Appearance: Alert, WD/WN, No Apparent Distress, Other (AxOx3) Eye Exam: Bilateral Eye: Normal Inspection Ears: Normal External Exam (left; right ear is absend), Normal Canal, Normal TMs (left) Ear Exam: Left Ear: Auricle Normal (right is absent) Nose: Normal Inspection, Other (supercial laceration to the right nare) Throat/Mouth: Normal Inspection, Normal Oropharynx, Normal Voice, No Airway Compromise Head: Normocephalic. No: Facial Tenderness Neck: Normal Inspection, Full Range of Motion Respiratory/Chest: No Respiratory Distress, Lungs Clear, Normal Breath Sounds, Chest Non-Tender Cardiovascular: Normal Peripheral Pulses, Regular Rate, Rhythm, No Murmur Peripheral Pulses: 2+: Radial (L), Radial (R), Posterior Tibial (L), Posterior Tibial (R) GI/Abdominal: Normal Bowel Sounds, Soft, Non-Tender Neurological: Alert, Confused Psychiatric: Normal Affect, Normal Mood Skin Exam: Warm, Dry, Ecchymosis (right arm, right side of face) EKG INTERPRETATION EKG Date: 08/29/17 Time: 19:00 Rhythm: NSR Rate (Beats/Min): 93 [place]: Normal P-Wave: Present QRS: RBBB ST-T: Normal QT: Normal EKG Interpretation Comments: NSR at 93 bpm. RBBB. LPFB. No acute changes. Reviewed by myself and Dr. Amor. Course - Vital Signs Last Recorded V/S: Last Vital Signs Temp 36.0 C 08/29/17 18:24 Pulse 93 08/29/17 18:24 Resp 26 H 08/29/17 18:24 BP 115/57 L 08/29/17 18:24 Pulse Ox 94 L 08/29/17 18:24 - Orders/Labs/Meds Orders: Active Orders 24 hr Category Date Time Status Blood Glucose Check, Bedside [RC] ONETIME Care 08/29/17 18:42 Active Cardiac Monitoring [RC] . DIRECTED Care 08/29/17 18:38 Active EKG Documentation Completion [RC] ASDIRECTED Care 08/29/17 18:39 Active Peripheral IV Care [RC] . DIRECTED Care 08/29/17 18:39 Active Chest Abdomen Pelvis wo Cont [CT] Stat Exams 08/29/17 18:38 Taken Elbow Min 3V Rt [CR] Stat Exams 08/29/17 20:47 Ordered Hand Comp Min 3V Rt [CR] Stat Exams 08/29/17 20:47 Ordered Shoulder Comp Rt [CR] Stat Exams 08/29/17 20:47 Ordered C DIFFICILE BY PCR W/NAP1 [MOLEC] Stat Lab 08/29/17 21:02 Ordered CULTURE BLOOD [BC] Stat Lab 08/29/17 20:54 Received CULTURE BLOOD [BC] Stat Lab 08/29/17 21:17 Received CULTURE URINE [RM] Stat Lab 08/29/17 19:45 Received Sodium Chloride 0.9% [Normal Saline] 1,000 ml Med 08/29/17 20:00 Active IV ASDIRECTED Sodium Chloride 0.9% [Saline Flush] Med 08/29/17 18:38 Active 10 ml FLUSH ASDIRECTED PRN Blood Culture x2 Reflex Set [OM.PC] Stat Oth 08/29/17 20:12 Ordered Peripheral IV Insertion Adult [OM.PC] Routine Oth 08/29/17 18:38 Ordered EKG 12 Lead [EK] Stat Ther 08/29/17 18:38 Ordered Medication Orders Sodium Chloride (Normal Saline) 1,000 mls @ 100 mls/hr IV ASDIRECTED GAUDENCIO Sodium Chloride (Saline Flush) 10 ml FLUSH ASDIRECTED PRN PRN Reason: Keep Vein Open Last Admin: 08/29/17 19:16 Dose: 10 ml Labs: Laboratory Tests 08/29/17 08/29/17 08/29/17 Range/Units 18:35 18:56 18:56 WBC 16.50 H (3.98-10.04) K/mm3 RBC 5.14 (3.98-5.22) M/mm3 Hgb 14.4 (11.2-15.7) gm/L Hct 43.9 (34.1-44.9) % MCV 85.4 (79.4-94.8) fl MCH 28.0 (25.6-32.2) pg MCHC 32.8 (32.2-35.5) g/dl RDW Std Deviation 43.2 (36.4-46.3) fL Plt Count 200 (182-369) K/mm3 MPV 10.1 (9.4-12.3) fl Neutrophils % (Manual) 90 H (40-60) % Band Neutrophils % 0 (0-10) % Lymphocytes % (Manual) 3 L (20-40) % Atypical Lymphs % 0 % Monocytes % (Manual) 7 (2-10) % Eosinophils % (Manual) 0 L (0.7-5.8) % Basophils % (Manual) 0 L (0.1-1.2) Platelet Estimate Adequate RBC Morph Comment Normal PT 38.7 H (8.0-13.0) SECONDS INR 3.29 APTT 42 H (22-36) SECONDS Sodium (136-145) mEq/L Potassium (3.5-5.1) mEq/L Chloride (98-107) mEq/L Carbon Dioxide (21-32) mEq/L Anion Gap (5-15) BUN (7-18) mg/dL Creatinine (0.55-1.02) mg/dL Est Cr Clr Drug Dosing mL/min Estimated GFR (MDRD) (>60) mL/min BUN/Creatinine Ratio (14-18) Glucose (83-115) mg/dL POC Glucose 223 H (83-110) mg/dL Lactic Acid (0.4-2.0) mmol/L Calcium (8.5-10.1) mg/dL Total Bilirubin (0.2-1.0) mg/dL AST (15-37) U/L ALT (14-59) U/L Alkaline Phosphatase (46-116) U/L Creatine Kinase (26-192) U/L Troponin I (0.00-0.056) ng/mL Total Protein (6.4-8.2) g/dl Albumin (3.4-5.0) g/dl Globulin gm/dL Albumin/Globulin Ratio (1-2) Lipase (73-393) U/L Urine Color (Yellow) Urine Appearance (Clear) Urine pH (5.0-8.0) Ur Specific [place] (1.005-1.030) Urine Protein (Negative) Urine Glucose (UA) (Negative) Urine Ketones (Negative) Urine Occult Blood (Negative) Urine Nitrite (Negative) Urine Bilirubin (Negative) Urine Urobilinogen (0.2-1.0) Ur Leukocyte Esterase (Negative) Urine RBC (0-5) /hpf Urine WBC (0-5) /hpf Ur Epithelial Cells (0-5) /hpf Amorphous Sediment (NOT SEEN) /hpf Urine Bacteria (FEW) /hpf Urine Mucus (FEW) /hpf 08/29/17 08/29/17 08/29/17 Range/Units 18:56 19:40 21:17 WBC (3.98-10.04) K/mm3 RBC (3.98-5.22) M/mm3 Hgb (11.2-15.7) gm/L Hct (34.1-44.9) % MCV (79.4-94.8) fl MCH (25.6-32.2) pg MCHC (32.2-35.5) g/dl RDW Std Deviation (36.4-46.3) fL Plt Count (182-369) K/mm3 MPV (9.4-12.3) fl Neutrophils % (Manual) (40-60) % Band Neutrophils % (0-10) % Lymphocytes % (Manual) (20-40) % Atypical Lymphs % % Monocytes % (Manual) (2-10) % Eosinophils % (Manual) (0.7-5.8) % Basophils % (Manual) (0.1-1.2) Platelet Estimate RBC Morph Comment PT (8.0-13.0) SECONDS INR APTT (22-36) SECONDS Sodium 140 (136-145) mEq/L Potassium 3.8 (3.5-5.1) mEq/L Chloride 100 (98-107) mEq/L Carbon Dioxide 26 (21-32) mEq/L Anion Gap 17.8 H (5-15) BUN 41 H (7-18) mg/dL Creatinine 2.6 H (0.55-1.02) mg/dL Est Cr Clr Drug Dosing 13.20 mL/min Estimated GFR (MDRD) 17 (>60) mL/min BUN/Creatinine Ratio 15.8 (14-18) Glucose 200 H (83-115) mg/dL POC Glucose (83-110) mg/dL Lactic Acid 1.0 (0.4-2.0) mmol/L Calcium 9.1 (8.5-10.1) mg/dL Total Bilirubin 0.6 (0.2-1.0) mg/dL AST 56 H (15-37) U/L ALT 45 (14-59) U/L Alkaline Phosphatase 64 (46-116) U/L Creatine Kinase 1070 H (26-192) U/L Troponin I 0.032 (0.00-0.056) ng/mL Total Protein 7.0 (6.4-8.2) g/dl Albumin 3.4 (3.4-5.0) g/dl Globulin 3.6 gm/dL Albumin/Globulin Ratio 0.9 L (1-2) Lipase 268 (73-393) U/L Urine Color Yellow (Yellow) Urine Appearance Slt cloudy H (Clear) Urine pH 6.0 (5.0-8.0) Ur Specific [place] 1.020 (1.005-1.030) Urine Protein 2+ H (Negative) Urine Glucose (UA) Negative (Negative) Urine Ketones Negative (Negative) Urine Occult Blood 1+ H (Negative) Urine Nitrite Negative (Negative) Urine Bilirubin Negative (Negative) Urine Urobilinogen 0.2 (0.2-1.0) Ur Leukocyte Esterase Trace H (Negative) Urine RBC 5-10 H (0-5) /hpf Urine WBC 10-20 H (0-5) /hpf Ur Epithelial Cells 5-10 H (0-5) /hpf Amorphous Sediment Few H (NOT SEEN) /hpf Urine Bacteria Many H (FEW) /hpf Urine Mucus Not seen (FEW) /hpf Meds: Medications Generic Name Dose Route Start Last Admin Trade Name Freq PRN Reason Stop Dose Admin Sodium Chloride 1,000 mls @ 100 mls/hr 08/29/17 20:00 Normal Saline IV ASDIRECTED GAUDENCIO Sodium Chloride 10 ml 08/29/17 18:38 08/29/17 19:16 Saline Flush FLUSH 10 ml ASDIRECTED PRN Administration Keep Vein Open Discontinued Medications Generic Name Dose Route Start Last Admin Trade Name Freq PRN Reason Stop Dose Admin Sodium Chloride 1,000 mls @ 999 mls/hr 08/29/17 18:37 08/29/17 21:09 Normal Saline IV 08/29/17 19:37 Not Given ONETIME ONE Sodium Chloride 500 mls @ 500 mls/hr 08/29/17 18:41 08/29/17 19:15 Normal Saline IV 08/29/17 19:40 500 mls/hr .BOLUS ONE Administration - Radiology Interpretation Free Text/Narrative:: Head CT Technique: Multiple axial sections through the brain were obtained. Intravenous contrast was not utilized. Comparison: Prior head CT exam of 05/01/17. Findings: Ventricles along with basal cisterns and sulci over the convexities are mildly prominent. Old infarct is noted within left occipital region which is stable. Diminished density is noted within the periventricular and subcortical white matter compatible with small vessel ischemic demyelination change which is stable. Several old lacunar infarcts are noted within the basal ganglia which are stable. No evidence of intracranial hemorrhage. No midline shift or mass effect is seen. Bone window settings were reviewed which shows no acute calvarial abnormality. Visualized sinuses are clear. Impression: 1. Senescent change as noted above. No acute intracranial abnormality is seen. No appreciable change is seen from previous head CT exam. CT cervical spine Technique: Multiple axial sections were obtained from above C1 inferiorly to the bottom of T1. Reconstructed sagittal and coronal images were reviewed. Comparison: No previous cervical spine imaging. Findings: Degenerative change noted between the dens and anterior arch of C1. Severe disc space narrowing is noted C5-C6 with moderate disc space narrowing at C6-C7. Posterior spurring is noted at these 2 disc levels. Slight anterior osteophytes are noted at C4-C5 through C6-C7. Vertebral body heights are maintained. No fracture is seen. Scattered areas of left-sided neural foraminal stenosis is seen. Degenerative apophyseal change is seen which is worse on the left side. No bony central canal stenosis is seen. No abnormal subluxation is seen on the reconstructed sagittal images. Minimal scoliosis is noted. Degenerative spurring is noted within the uncovertebral joints at C5-C6 and C6-C7. Impression: 1. Degenerative change as noted above. No acute abnormality is appreciated on CT study of the cervical spine. CT of the chest without IV contrast impression per vrad: 1. No sign of acute traumatic sequelae to the chest. 2. Aberrant right subclavian artery with a 2.5 cm aneurysm at its proximal aspect. CT of the abdomen and pelvis without contrast impression per vrad: No sign of acute or metastatic sequelae on noncontrast imaging of the abdomen and pelvis. xray of the right hand shows degenerative change, no acute fractures. Formal radiology read pending. X-ray of the right elbow shows no acute fractures. Formal radiology read pending. X-ray of the right shoulder shows no acute fractures or dislocations. Degenerative change. Formal radiology read pending. - Re-Assessments/Exams Free Text/Narrative Re-Assessment/Exam: 08/29/17 22:12 Patient's daughter is at the patient's bedside. She informs me that she was diagnosed with influenza 2 days ago. She is not currently on Tamiflu. Reports she was quarantined at [facility]. She also reports that she's had C. difficile recently. She had her first episode a few months ago. She was also diagnosed last week. It is unclear if she is currently on antibiotics for the C. difficile. Reportedly she was on analytics recently which caused the C. difficile. I spoke with our hospitalist on-call, Dr. Montgomery, she agrees to an observation admission. I will notify the patient's family of this encourage them to bring her medications. I spoke with the patient and her family regarding this. I do feel an observation admission would be a good option for her. Patient and family agrees to the admission. They were informed to bring her medications. Departure - Departure Time of Disposition: 21:15 Disposition: Refer to Observation Condition: Fair Clinical Impression: Rhabdomyolysis, Acute kidney injury, Abrasions of multiple sites, Anticoagulated on Coumadin, Fall - Discharge Information Referrals: PCP,None [Ordering Only Provider] - Forms: ED Department Discharge - My Orders Last 24 Hours: My Active Orders 08/29/17 18:38 Cardiac Monitoring [RC] . DIRECTED Chest Abdomen Pelvis wo Cont [CT] Stat Sodium Chloride 0.9% [Saline Flush] 10 ml FLUSH ASDIRECTED PRN Peripheral IV Insertion Adult [OM.PC] Routine EKG 12 Lead [EK] Stat 08/29/17 18:39 EKG Documentation Completion [RC] ASDIRECTED Peripheral IV Care [RC] . DIRECTED 08/29/17 18:42 Blood Glucose Check, Bedside [RC] ONETIME 08/29/17 19:45 CULTURE URINE [RM] Stat 08/29/17 20:00 Sodium Chloride 0.9% [Normal Saline] 1,000 ml IV ASDIRECTED 08/29/17 20:12 Blood Culture x2 Reflex Set [OM.PC] Stat 08/29/17 20:47 Elbow Min 3V Rt [CR] Stat Hand Comp Min 3V Rt [CR] Stat Shoulder Comp Rt [CR] Stat 08/29/17 20:54 CULTURE BLOOD [BC] Stat 08/29/17 21:02 C DIFFICILE BY PCR W/NAP1 [MOLEC] Stat 08/29/17 21:17 CULTURE BLOOD [BC] Stat - Assessment/Plan Last 24 Hours: My Active Orders 08/29/17 18:38 Cardiac Monitoring [RC] . DIRECTED Chest Abdomen Pelvis wo Cont [CT] Stat Sodium Chloride 0.9% [Saline Flush] 10 ml FLUSH ASDIRECTED PRN Peripheral IV Insertion Adult [OM.PC] Routine EKG 12 Lead [EK] Stat 08/29/17 18:39 EKG Documentation Completion [RC] ASDIRECTED Peripheral IV Care [RC] . DIRECTED 08/29/17 18:42 Blood Glucose Check, Bedside [RC] ONETIME 08/29/17 19:45 CULTURE URINE [RM] Stat 08/29/17 20:00 Sodium Chloride 0.9% [Normal Saline] 1,000 ml IV ASDIRECTED 08/29/17 20:12 Blood Culture x2 Reflex Set [OM.PC] Stat 08/29/17 20:47 Elbow Min 3V Rt [CR] Stat Hand Comp Min 3V Rt [CR] Stat Shoulder Comp Rt [CR] Stat 08/29/17 20:54 CULTURE BLOOD [BC] Stat 08/29/17 21:02 C DIFFICILE BY PCR W/NAP1 [MOLEC] Stat 08/29/17 21:17 CULTURE BLOOD [BC] Stat
--- NOTE | 2017-08-29 19:54 | CT ---
CT cervical spine Technique: Multiple axial sections were obtained from above C1 inferiorly to the bottom of T1. Reconstructed sagittal and coronal images were reviewed. Comparison: No previous cervical spine imaging. Findings: Degenerative change noted between the dens and anterior arch of C1. Severe disc space narrowing is noted C5-C6 with moderate disc space narrowing at C6-C7. Posterior spurring is noted at these 2 disc levels. Slight anterior osteophytes are noted at C4-C5 through C6-C7. Vertebral body heights are maintained. No fracture is seen. Scattered areas of left-sided neural foraminal stenosis is seen. Degenerative apophyseal change is seen which is worse on the left side. No bony central canal stenosis is seen. No abnormal subluxation is seen on the reconstructed sagittal images. Minimal scoliosis is noted. Degenerative spurring is noted within the uncovertebral joints at C5-C6 and C6-C7. Impression: 1. Degenerative change as noted above. No acute abnormality is appreciated on CT study of the cervical spine. Diagnostic code #2
[2017-08-29] MEDS ORDERED: Sodium Chloride 0.9% 1,000 ML IV SCH (20:00)
[2017-08-30] MEDS ORDERED: Sodium Chloride 0.9% 1,000 ML IV SCH ×2 (01:00→05:00)
[2017-08-30] MEDS: Insulin Aspart 100 Units/ML 3 ML Pen SUBCUT SCH ×2 (08:24→22:27)
[2017-08-30] MEDS ORDERED: JANUVIA 100 MG PO SCH (09:00)
--- NOTE | 2017-08-30 10:18 | PCM.HP ---
H&P History of Present Illness - General Date of Service: 08/30/17 Source of Information: Provider History Limitations: Reports: No Limitations - History of Present Illness Initial Comments - Free Text/Narative: 89 year old female who had fallen was down for an unspecified time period. She apparently went down between [id number], the exact duration remains a mystery. She had multiple sites which were described as painful including her right hip and shoulder. Every location mentioned was evaluated by radiographic imaging. The patient has baseline dementia and is unable to add to her history which was obtained from the [facility] staff. She has had at least 2 C diff occurrences, the most recent therapy reportedly was this month. Her WBCs are elevated, an infectious source will be pursued. She is a febrile with unremarkable vital signs. Onset of Symptoms: Reports: Unknown/Unsure Symptom Onset Date: 08/29/17 Duration of Symptoms: Reports: Week(s): Location: Reports: Abdomen, Generalized Severity: Moderate Improves with: Reports: Medication Worsens with: Reports: None Associated Symptoms: Reports: Confusion, Fever/Chills, Malaise, Nausea/Vomiting , Weakness Right Arm Pain Score (Numeric/FACES): 3 - Related Data Allergies/Adverse Reactions: Allergies Allergy/AdvReac Type Severity Reaction Status Date / Time hydromorphone HCl Allergy Cannot Verified 08/29/17 18:24 [From Dilaudid] Remember latex Allergy Swelling Verified 08/29/17 18:24 Penicillins Allergy Cannot Verified 08/30/17 04:21 Remember codeine AdvReac Confusion Verified 08/31/17 07:13 Home Medications: Home Meds Cholecalciferol (Vitamin D3) [Vitamin D] 1,000 unit PO DAILY 11/17/14 [History] Enalapril [Vasotec] 20 mg PO BID 11/17/14 [History] Fenofibrate Nanocrystallized [Tricor] 145 mg PO DAILY 11/17/14 [History] Metoprolol Tartrate 12.5 mg PO BID 11/17/14 [History] Multivitamin with Minerals [Multivitamins with Minerals] 1 each PO DAILY [History] Omeprazole [Prilosec] 20 mg PO DAILY 11/17/14 [History] Pravastatin [Pravachol] 40 mg PO BEDTIME 11/17/14 [History] Sertraline HCl [Zoloft] 50 mg PO DAILY 11/17/14 [History] SitaGLIPtin [Januvia] 100 mg PO DAILY 11/17/14 [History] Warfarin [Coumadin] 1 mg PO ASDIRECTED 11/17/14 [History] Psyllium [Metamucil] 1.04 gm PO TID PRN 01/21/15 [History] Witch Nikky [Tucks] 1 pad TOP TID PRN 01/21/15 [History] Furosemide [Lasix] 40 mg PO DAILY 04/16/17 [History] Diphenhyd/Lidocaine/Nystatin [Magic Mouthwash] 30 ml PO QID PRN 05/01/17 [ History] Acetaminophen [Tylenol Arthritis] 1 tab PO Q6HR PRN 08/29/17 [History] Ondansetron [Zofran ODT] 4 mg SL Q6HR PRN 08/29/17 [History] Warfarin [Coumadin] 2 mg PO ASDIRECTED 08/29/17 [History] Docusate Sodium [Colace] 100 mg PO DAILY PRN 08/30/17 [History] Loperamide [Imodium] 2 mg PO PRN 08/30/17 [History] Past Medical History HEENT History: Reports: Hard of Hearing, Impaired Vision Cardiovascular History: Reports: High Cholesterol, Hypertension Gastrointestinal History: Reports: GERD Genitourinary History: Reports: Retention, Urinary, Other (See Below) Musculoskeletal History: Reports: Back Pain, Chronic, Neck Pain, Chronic, Osteoarthritis, Osteoporosis Neurological History: Reports: CVA Other Neuro History: left occipital infarc Psychiatric History: Reports: Anxiety, Dementia Endocrine/Metabolic History: Reports: Diabetes, Type II, Osteoporosis Social & Family History - Tobacco Use Smoking Status *Q: Never Smoker Years of Tobacco use: 63 Used Tobacco, but Quit: Yes Month Tobacco Last Used: 7 yrs Second Hand Smoke Exposure: No - Caffeine Use Caffeine Use: Reports: Coffee - Alcohol Use Days Per Week of Alcohol Use: 0 - Recreational Drug Use Recreational Drug Use: No - Living Situation & Occupation Living situation: Reports: Occupation: Retired H&P Review of Systems - Review of Systems: Review Of Systems: See Below General: Reports: Fever, Chills, Malaise, Weakness HEENT: Reports: No Symptoms Pulmonary: Reports: No Symptoms Cardiovascular: Reports: No Symptoms Gastrointestinal: Reports: Diarrhea Genitourinary: Reports: No Symptoms Musculoskeletal: Reports: No Symptoms Skin: Reports: No Symptoms Psychiatric: Reports: No Symptoms Neurological: Reports: No Symptoms Hematologic/Lymphatic: Reports: No Symptoms Immunologic: Reports: No Symptoms Exam - Exam Exam: See Below - Vital Signs Vital Signs: Last Vital Signs Temp 36.4 C 08/30/17 06:04 Pulse 80 08/30/17 06:04 Resp 16 08/30/17 06:04 BP 158/84 H 08/30/17 06:04 Pulse Ox 93 L 08/30/17 06:04 Weight: 64.954 kg - Exam Quality Assessment: Supplemental Oxygen, DVT Prophylaxis General: Alert, Oriented, Cooperative HEENT: Conjunctiva Clear, EOMI, Nares Patent, Normal Nasal Septum, Pupils Equal , Pupils Reactive, PERRLA Neck: Trachea Midline Lungs: Normal Respiratory Effort Cardiovascular: Regular Rate, Regular Rhythm GI/Abdominal Exam: Normal Bowel Sounds, Soft, Non-Tender, No Organomegaly, No Distention (Female) Exam: Deferred Rectal (Female) Exam: Deferred Back Exam: Normal Inspection Extremities: Normal Inspection, Normal Range of Motion, Non-Tender, No Pedal Edema Skin: Warm Neurological: Cranial Nerves Intact Neuro Extensive - Mental Status: Alert, Oriented x3 Neuro Extensive - Motor, Sensory, Reflexes: CN II-XII Intact Psychiatric: Alert, Normal Affect, Normal Mood - Patient Data Result Diagrams: 08/31/17 06:50 08/31/17 06:50 *Q Meaningful Use (ADM) - VTE *Q VTE Criteria *Q: - Stroke *Q Stroke Criteria *Q: - AMI *Q AMI Criteria *Q: Problem List Initiated/Reviewed/Updated: Yes Orders Last 24hrs: Active Orders 24 hr Category Date Time Status Alogliptin Benzoate [Alogliptin] Med 08/30/17 09:45 Active 25 mg PO DAILY Insulin Aspart [NovoLOG] Med 08/30/17 21:00 Active 0 unit SUBCUT BID@0700,2100 Medication Orders Enoxaparin Sodium (Lovenox) 30 mg SUBCUT DAILY GAUDENCIO Sodium Chloride (Normal Saline) 1,000 mls @ 100 mls/hr IV ASDIRECTED GAUDENCIO Insulin Aspart (Novolog) 0 unit SUBCUT BID@0700,2100 [facility] PRN Reason: Protocol Sodium Chloride (Saline Flush) 10 ml FLUSH ASDIRECTED PRN PRN Reason: Keep Vein Open Last Admin: 08/29/17 19:16 Dose: 10 ml Assessment/Plan Comment:: Impression: S/P fall without LOC Negative radiographic studies History of recent C Diff infection Query failed or incomplete treatment; persistent diarrhea Leukocytosis Chronic GERD HTN HLD Dementia Anxiety Diabetes meilltus type 2 CVA Plan: IVF Vanco/Flagyl Home meds UC/BC Daily Labns DVT/GI prophylaxis CSM/PT/OT
[2017-08-30] MEDS ORDERED: LIDOCAINE PO PRN (10:32)
[2017-08-30] MEDS ORDERED: DIPHENHYDRAMINE PO PRN (10:32)
[2017-08-30] MEDS ORDERED: ACETAMINOPHEN PO PRN (10:32)
[2017-08-30] MEDS ORDERED: NYSTATIN PO PRN (10:32)
[2017-08-30] MEDS ORDERED: Warfarin 2 MG Tab PO SCH (10:45)
[2017-08-30] MEDS ORDERED: Non-Formulary Medication 1 Each (Warfarin 1 MG) PO SCH (10:45)
[2017-08-30] MEDS: Witch Hazel Medicated Pads 100/Jar TOP PRN ×2 (10:58→23:31)
[2017-08-30] MEDS: Enoxaparin 30 MG/0.3 ML Syringe SUBCUT SCH (10:59)
[2017-08-30] MEDS: hydrALAZINE 20 MG/ML SDV IVPUSH PRN (11:14)
--- NOTE | 2017-08-30 12:13 | CR ---
Right hand: Four views of the right hand were obtained. Comparison: No previous study. Diffuse joint space narrowing is noted within the MCP, DIP and PIP joints. Joint space narrowing is noted off the distal navicular bone. Diffuse osteoporosis is seen. No fracture, dislocation or other bony abnormality is identified. Impression: 1. Osteoporosis and degenerative change. 2. Nothing acute is definitely identified on right hand exam. Diagnostic code #2
--- NOTE | 2017-08-30 12:13 | CT ---
CT chest Technique: Multiple axial sections were obtained from above the lung apices inferiorly through the lung bases. Intravenous contrast was not utilized. Comparison: No prior chest CT, previous chest x-ray of 04/16/17. Findings: Aberrant right subclavian artery is seen traveling posterior to the esophagus. There is an aneurysm identified at the origin of the subclavian artery on the right side measuring around 2.5 cm. There is slight substernal extension of the right lobe of thyroid gland which contains a thyroid nodule measuring about 1.9 cm. Atherosclerotic change noted within the thoracic aorta. No mediastinal or hilar adenopathy is seen. Moderate coronary artery calcification is seen. Mitral annulus calcification is noted. No pericardial thickening is seen. Mild areas of interstitial change are seen compatible with slight fibrosis. More focal fibrosis seen within the lingula. No acute pulmonary densities are appreciated. Bone window settings were reviewed which show no acute abnormality within the osseous system. Impression: 1. Mild interstitial fibrosis within both lungs. 2. 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 3. Mild substernal extension of the right lobe of thyroid gland which contains a 1.9 nodule. 4. Nothing acute is appreciated. Diagnostic code #2 I agree with preliminary report issued by [email or web address] ([facility] preliminary report dictated on 08/29/17, 9:35 PM Central Time) CT abdomen and pelvis Technique: Multiple axial sections were obtained from above the dome of the diaphragm inferiorly through the pubic symphysis. Intravenous and oral contrast was not utilized. Comparison: Prior CT abdomen and pelvis study of 01/21/15. Findings: Fatty infiltration is identified within the liver. Prior study showed a small cyst within the anterior right lobe of the liver which appears to be smaller on current exam. No additional abnormality is seen within the liver. Spleen appears within normal limits. Adrenal glands appear normal. Pancreas is unremarkable. Surgical clips are seen from prior cholecystectomy. Incidental extrarenal pelvis on the right side within the right kidney. Small low-density lesion inferiorly within the left kidney which is felt compatible with a small cyst. Aorta shows slight ectasia with diffuse atherosclerotic change. No retroperitoneal adenopathy or mesenteric abnormalities are seen. Diverticuli are seen within the sigmoid colon without diverticulitis. Appendix not visualized with certainty. Surgical anastomotic sutures noted at the rectosigmoid junction. Bone window settings show scattered degenerative change within the lumbar spine. No acute osseous abnormality is seen. Impression: 1. Incidental findings. Nothing acute is seen on noncontrast CT study of the abdomen and pelvis. Diagnostic code #2 I agree with preliminary report issued by [email or web address] ([facility] preliminary report dictated on 08/29/17, 9:35 PM Central Time)
--- NOTE | 2017-08-30 12:13 | CR ---
Right elbow: Three views of the right elbow were obtained. Comparison: No previous study. Calcifications which are well-corticated and old are identified off the lateral humeral epicondyle. No joint effusion is seen. Osteopenia is present. No acute bony abnormality is identified. Impression: 1. Incidental findings. No acute bony abnormality is identified. Diagnostic code #2
--- NOTE | 2017-08-30 12:13 | CR ---
Right shoulder: Two views of the right shoulder were obtained. Comparison: No prior right shoulder study. Bony structures are osteoporotic. Joint space narrowing is noted within the acromioclavicular joint. No acute fracture or other abnormality is seen. Impression: 1. Incidental findings. Nothing acute is appreciated on right shoulder study. Diagnostic code #2
[2017-08-30] MEDS ORDERED: Metoprolol Tartrate 25 MG Tab PO ONE (14:15)
[2017-08-30] MEDS: Oseltamivir 30 MG Cap PO SCH ×2 (15:26→22:24)
[2017-08-30] MEDS: Acetaminophen 325 MG Tab PO PRN (17:23)
[2017-08-30] MEDS ORDERED: cefTRIAXone 2 GM in Sodium Chloride 0.9% 100 ML IV ONE ×2 (17:27→19:00)
[2017-08-30] MEDS ORDERED: metroNIDAZOLE/Normal Saline 100 ML ONE (17:38)
[2017-08-30] MEDS: metroNIDAZOLE/Normal Saline 500 MG in Premix Bag 1 BAG IV SCH (18:01)
[2017-08-30] MEDS ORDERED: ENALAPRIL 10 MG PO SCH (21:00)
[2017-08-30] MEDS: Metoprolol Tartrate 25 MG Tab PO SCH (22:25)
[2017-08-30] MEDS: Simvastatin 20 MG Tab PO SCH (22:25)
[2017-08-30] MEDS: Saccharomyces Boulardii (Probiotic) 250 MG Cap PO SCH (22:27)
[2017-08-30] MEDS: Vancomycin 50 MG/ML 150ML Oral Solution Kit PO SCH (22:28)
[2017-08-31] MEDS: metroNIDAZOLE/Normal Saline 500 MG in Premix Bag 1 BAG IV SCH ×3 (00:44→17:12)
[2017-08-31] MEDS: Sodium Chloride 0.9% 1,000 ML IV SCH ×2 (00:45→13:57)
[2017-08-31] MEDS: Insulin Aspart 100 Units/ML 3 ML Pen SUBCUT SCH ×2 (08:12→22:59)
[2017-08-31] MEDS ORDERED: Non-Formulary Medication 1 Each (Sitagliptin 100 MG) PO SCH (09:00)
[2017-08-31] MEDS ORDERED: Sertraline 50 MG Tab PO SCH (09:00)
[2017-08-31] MEDS: Vancomycin 50 MG/ML 150ML Oral Solution Kit PO SCH ×4 (09:15→21:34)
[2017-08-31] MEDS: Saccharomyces Boulardii (Probiotic) 250 MG Cap PO SCH ×2 (09:16→21:34)
[2017-08-31] MEDS: Oseltamivir 30 MG Cap PO SCH (09:16)
[2017-08-31] MEDS: Metoprolol Tartrate 25 MG Tab PO SCH ×2 (09:16→21:37)
[2017-08-31] MEDS: Fenofibrate Nanocrystallized 145 MG Tab PO SCH (09:16)
[2017-08-31] MEDS: Enoxaparin 30 MG/0.3 ML Syringe SUBCUT SCH (09:17)
[2017-08-31] MEDS: hydrALAZINE 20 MG/ML SDV IVPUSH PRN (12:00)
[2017-08-31] MEDS: Witch Hazel Medicated Pads 100/Jar TOP PRN (13:58)
--- NOTE | 2017-08-31 17:45 | PCM.PN ---
- General Info Date of Service: 08/31/17 Functional Status: Reports: Tolerating Diet, Urinating - Review of Systems General: Reports: No Symptoms HEENT: Reports: No Symptoms Pulmonary: Reports: No Symptoms Cardiovascular: Reports: No Symptoms Gastrointestinal: Reports: Diarrhea Genitourinary: Reports: No Symptoms Musculoskeletal: Reports: No Symptoms Skin: Reports: No Symptoms Neurological: Reports: No Symptoms Psychiatric: Reports: No Symptoms - Patient Data Vitals - Most Recent: Last Vital Signs Temp 36.9 C 08/31/17 15:47 Pulse 90 08/31/17 15:47 Resp 18 08/31/17 15:47 BP 139/55 L 08/31/17 15:47 Pulse Ox 94 L 08/31/17 15:47 Weight - Most Recent: 64.954 kg I&O - Last 24 Hours: Intake & Output 08/31/17 08/31/17 08/31/17 06:59 14:59 22:59 Intake Total 1500 90 1700 Balance 1500 90 1700 Lab Results Last 24 Hours: Laboratory Results - last 24 hr 08/30/17 08/31/17 08/31/17 Range/Units 21:05 06:45 06:50 WBC 8.55 (3.98-10.04) K/mm3 RBC 4.29 (3.98-5.22) M/mm3 Hgb 11.9 (11.2-15.7) gm/L Hct 37.6 (34.1-44.9) % MCV 87.6 (79.4-94.8) fl MCH 27.7 (25.6-32.2) pg MCHC 31.6 L (32.2-35.5) g/dl RDW Std Deviation 45.1 (36.4-46.3) fL Plt Count 196 (182-369) K/mm3 MPV 10.4 (9.4-12.3) fl Neut % (Auto) 83.1 H (34.0-71.1) % Lymph % (Auto) 7.1 L (19.3-51.7) % Coke % (Auto) 8.8 (4.7-12.5) % Eos % (Auto) 0.6 L (0.7-5.8) Baso % (Auto) 0.2 (0.1-1.2) % Neut # (Auto) 7.10 H (1.56-6.13) K/mm3 Lymph # (Auto) 0.61 L (1.18-3.74) K/mm3 Coke # (Auto) 0.75 H (0.24-0.36) K/mm3 Eos # (Auto) 0.05 (0.04-0.36) K/mm3 Baso # (Auto) 0.02 (0.01-0.08) K/mm3 Manual Slide Review Normal smear PT (8.0-13.0) SECONDS INR Sodium (136-145) mEq/L Potassium (3.5-5.1) mEq/L Chloride (98-107) mEq/L Carbon Dioxide (21-32) mEq/L Anion Gap (5-15) BUN (7-18) mg/dL Creatinine (0.55-1.02) mg/dL Est Cr Clr Drug Dosing mL/min Estimated GFR (MDRD) (>60) mL/min BUN/Creatinine Ratio (14-18) Glucose (83-115) mg/dL POC Glucose 110 84 (83-110) mg/dL Calcium (8.5-10.1) mg/dL Magnesium (1.8-2.4) mg/dl C-Reactive Protein (<1.0) mg/dL 08/31/17 08/31/17 Range/Units 06:50 06:50 WBC (3.98-10.04) K/mm3 RBC (3.98-5.22) M/mm3 Hgb (11.2-15.7) gm/L Hct (34.1-44.9) % MCV (79.4-94.8) fl MCH (25.6-32.2) pg MCHC (32.2-35.5) g/dl RDW Std Deviation (36.4-46.3) fL Plt Count (182-369) K/mm3 MPV (9.4-12.3) fl Neut % (Auto) (34.0-71.1) % Lymph % (Auto) (19.3-51.7) % Coke % (Auto) (4.7-12.5) % Eos % (Auto) (0.7-5.8) Baso % (Auto) (0.1-1.2) % Neut # (Auto) (1.56-6.13) K/mm3 Lymph # (Auto) (1.18-3.74) K/mm3 Coke # (Auto) (0.24-0.36) K/mm3 Eos # (Auto) (0.04-0.36) K/mm3 Baso # (Auto) (0.01-0.08) K/mm3 Manual Slide Review PT 28.9 H (8.0-13.0) SECONDS INR 2.50 Sodium 139 (136-145) mEq/L Potassium 3.5 (3.5-5.1) mEq/L Chloride 106 (98-107) mEq/L Carbon Dioxide 23 (21-32) mEq/L Anion Gap 13.5 (5-15) BUN 26 H (7-18) mg/dL Creatinine 1.3 H (0.55-1.02) mg/dL Est Cr Clr Drug Dosing 21.07 mL/min Estimated GFR (MDRD) 39 (>60) mL/min BUN/Creatinine Ratio 20.0 H (14-18) Glucose 89 (83-115) mg/dL POC Glucose (83-110) mg/dL Calcium 8.0 L (8.5-10.1) mg/dL Magnesium 1.8 (1.8-2.4) mg/dl C-Reactive Protein 11.3 H* (<1.0) mg/dL Umberto Results Last 24 Hours: Microbiology 08/30/17 20:23 Gram Stain - Preliminary Sputum - Expectorated 08/30/17 14:15 Influenza Type A Antigen Screen - Final Nasopharyngeal Swab - Nare, Left Positive Influenza A Ag Influenza Type B Antigen Screen - Final NEGATIVE INFLUENZA B VIRUS AG Med Orders - Current: Current Medications Acetaminophen (Tylenol) 650 mg PO Q6H PRN PRN Reason: Pain Last Admin: 08/30/17 17:23 Dose: 650 mg Enoxaparin Sodium (Lovenox) 30 mg SUBCUT DAILY GAUDENCIO Last Admin: 08/31/17 09:17 Dose: 30 mg Fenofibrate (Tricor) 145 mg PO DAILY GAUDENCIO Last Admin: 08/31/17 09:16 Dose: 145 mg Hydralazine HCl (Apresoline) 20 mg IVPUSH Q6H PRN PRN Reason: Hypertension Last Admin: 08/31/17 12:00 Dose: 20 mg Metronidazole 500 mg/ Premix 100 mls @ 100 mls/hr IV Q8H [facility] Last Admin: 08/31/17 17:12 Dose: 100 mls/hr Sodium Chloride (Normal Saline) 1,000 mls @ 75 mls/hr IV ASDIRECTED [facility] Last Admin: 08/31/17 13:57 Dose: 75 mls/hr Ceftriaxone Sodium 1 gm/ (Dextrose/Water) 100 mls @ 200 mls/hr IV Q24H [facility] Stop: 09/02/17 19:29 Insulin Aspart (Novolog) 0 unit SUBCUT BID@0700,2100 [facility] PRN Reason: Protocol Last Admin: 08/31/17 08:12 Dose: Not Given Metoprolol Tartrate (Lopressor) 12.[address] [facility] Last Admin: 08/31/17 09:16 Dose: 12.5 mg Oseltamivir Phosphate (Tamiflu) [address] [facility] Stop: 09/02/17 12:00 Diphenhyd/Lidocaine/ (Nystatin Mouthwash) 0 each PO QID PRN PRN Reason: Sore Throat Saccharomyces Boulardii (Florastor) [address] [facility] Last Admin: 08/31/17 09:16 Dose: 250 mg Sertraline HCl (Zoloft) [address] [facility] Last Admin: 08/31/17 09:16 Dose: 50 mg Simvastatin (Zocor) [address] [facility] Last Admin: 08/30/17 22:25 Dose: 20 mg Sodium Chloride (Saline Flush) 10 ml FLUSH ASDIRECTED PRN PRN Reason: Keep Vein Open Last Admin: 08/29/17 19:16 Dose: 10 ml Vancomycin HCl (First-Vancomycin 50 Compounding Kit) [address] [facility] Last Admin: 08/31/17 17:12 Dose: 10 ml Warfarin Sodium (Coumadin) [address] [facility] Warfarin Sodium (Coumadin) [address] [facility] Last Admin: 08/31/17 17:12 Dose: 1 mg Witch Nikky (Tucks) 1 pad TOP TID PRN PRN Reason: perineal Last Admin: 08/31/17 13:58 Dose: 1 pad Discontinued Medications Sodium Chloride (Normal Saline) 1,000 mls @ 999 mls/hr IV ONETIME ONE Stop: 08/29/17 19:37 Last Admin: 08/29/17 21:09 Dose: Not Given Sodium Chloride (Normal Saline) 500 mls @ 500 mls/hr IV .BOLUS ONE Stop: 08/29/17 19:40 Last Admin: 08/29/17 19:15 Dose: 500 mls/hr Sodium Chloride (Normal Saline) 1,000 mls @ 100 mls/hr IV ASDIRECTED [facility] Sodium Chloride (Normal Saline) 1,000 mls @ 150 mls/hr IV ASDIRECTED [facility] Stop: 08/30/17 05:00 Last Admin: 08/30/17 01:18 Dose: 150 mls/hr Sodium Chloride (Normal Saline) 1,000 mls @ 100 mls/hr IV ASDIRECTED [facility] Last Admin: 08/30/17 11:14 Dose: 100 mls/hr Metronidazole (Flagyl 500 Mg In Ns 100 Ml) Confirm Administered Dose 100 mls @ as directed .ROUTE .STK-MED ONE Stop: 08/30/17 17:39 Last Admin: 08/30/17 17:55 Dose: Not Given Ceftriaxone Sodium 2 gm/ (Sodium Chloride) 100 mls @ 200 mls/hr IV ONETIME ONE Stop: 08/30/17 19:29 Last Admin: 08/30/17 19:05 Dose: 200 mls/hr Insulin Aspart (Novolog) [address] [facility] PRN Reason: Protocol Last Admin: 08/30/17 08:24 Dose: Not Given Metoprolol Tartrate (Lopressor) 12.5 mg PO ONETIME ONE Stop: 08/30/17 14:16 Last Admin: 08/30/17 14:12 Dose: 12.5 mg Januvia 100mg Own (Med) [address] [facility] Non-Formulary Medication (Acetaminophen) 1 tab PO Q6HR PRN PRN Reason: Pain (moderate 4-6) Non-Formulary Medication (Enalapril) [address] [facility] Non-Formulary Medication (Sitagliptin) [address] [facility] Non-Formulary Medication (Warfarin) [address] [facility] Oseltamivir Phosphate (Tamiflu) [address] [facility] Last Admin: 08/31/17 09:16 Dose: 30 mg Warfarin Sodium (Coumadin) [address] [facility] - Exam Quality Assessment: DVT Prophylaxis General: Alert, Oriented, No Acute Distress HEENT: Pupils Equal, Pupils Reactive, EOMI Neck: Trachea Midline, No JVD Lungs: Normal Respiratory Effort Cardiovascular: Regular Rate GI/Abdominal Exam: Normal Bowel Sounds, Soft, Non-Tender, No Organomegaly, No Distention (Female) Exam: Deferred Back Exam: Normal Inspection Extremities: Normal Inspection Neurological: No New Focal Deficit Psy/Mental Status: Alert - Problem List Review Problem List Initiated/Reviewed/Updated: Yes - My Orders Last 24 Hours: My Active Orders 08/30/17 17:30 metroNIDAZOLE/Normal Saline [Flagyl 500 MG in NS 100 ML] 500 mg Premix Bag 1 bag IV Q8H 08/30/17 18:00 Sodium Chloride 0.9% [Normal Saline] 1,000 ml IV ASDIRECTED 08/30/17 18:12 Consult to Case Management [CONS] Routine 08/30/17 20:23 CULTURE SPUTUM + SMEAR [RM] Routine 08/30/17 21:00 Insulin Aspart [NovoLOG] 0 unit SUBCUT BID@0700,2100 Metoprolol Tartrate [Lopressor] 12.5 mg PO BID Saccharomyces Boulardii [Florastor] 250 mg PO BID Simvastatin [Zocor] 20 mg PO BEDTIME Vancomycin [First-Vancomycin 50 Compounding Kit] 500 mg PO QID 08/31/17 09:00 Consult to Occupational Therapy [OT Evaluation and Treatment] [CONS] Routine Consult to Physical Therapy [PT Evaluation and Treatment] [CONS] Routine Fenofibrate Nanocrystallized [Tricor] 145 mg PO DAILY Sertraline [Zoloft] 50 mg PO DAILY 08/31/17 18:00 Warfarin [Coumadin] 1 mg PO MoFr 08/31/17 19:00 cefTRIAXone [Rocephin] 1 gm Dextrose 5% in Water 100 ml IV Q24H 09/01/17 05:00 BASIC METABOLIC PANEL,BMP [CHEM] DAILY CBC WITH AUTO DIFF [HEME] DAILY CRP [C-REACTIVE PROTEIN] [CHEM] DAILY MAGNESIUM [CHEM] DAILY 09/01/17 09:00 Oseltamivir [Tamiflu] 30 mg PO DAILY 09/01/17 18:00 Warfarin [Coumadin] 2 mg PO [id number] 09/02/17 05:00 BASIC METABOLIC PANEL,BMP [CHEM] DAILY CBC WITH AUTO DIFF [HEME] DAILY CRP [C-REACTIVE PROTEIN] [CHEM] DAILY MAGNESIUM [CHEM] DAILY 09/03/17 05:00 BASIC METABOLIC PANEL,BMP [CHEM] DAILY CBC WITH AUTO DIFF [HEME] DAILY CRP [C-REACTIVE PROTEIN] [CHEM] DAILY MAGNESIUM [CHEM] DAILY - Plan Plan:: Impression: S/P fall without LOC Negative radiographic studies History of recent C Diff infection Query failed or incomplete treatment; persistent diarrhea Leukocytosis Repeat Influenza A screen, positive UC with G negative rods, Klebsiella-->norman sensitive, will continue Rocephin for a total of 4 days. Chronic GERD HTN HLD Dementia Anxiety Diabetes mellitus type 2 CVA Plan: IVF Vanco/Flagyl/Tamiflu renal dose Home meds UC/BC Daily Labns DVT/GI prophylaxis CSM/PT/OT
[2017-08-31] MEDS: cefTRIAXone 1 GM in Dextrose 5% in Water 100 ML IV SCH ×2 (18:30)
[2017-08-31] MEDS ORDERED: Sertraline 25 MG Tab PO ONE (20:30)
[2017-08-31] MEDS: Simvastatin 20 MG Tab PO SCH (21:33)
[2017-08-31] MEDS: Cholestyramine/Aspartame Powder 4 GM Packet PO SCH (21:34)
[2017-08-31] MEDS ORDERED: Temazepam 15 MG Cap PO PRN (23:35)
[2017-09-01] MEDS: hydrALAZINE 20 MG/ML SDV IVPUSH PRN ×3 (00:01→23:00)
[2017-09-01] MEDS: guaiFENesin/Dextromethorphan 100-10 MG/5 ML Soln 5 ML Cup PO PRN ×3 (00:15→21:00)
[2017-09-01] MEDS: Temazepam 15 MG Cap PO PRN ×2 (00:15→21:03)
[2017-09-01] MEDS: metroNIDAZOLE/Normal Saline 500 MG in Premix Bag 1 BAG IV SCH ×4 (00:16→16:58)
[2017-09-01] MEDS: Sodium Chloride 0.9% 1,000 ML IV SCH (03:24)
[2017-09-01] MEDS: Insulin Aspart 100 Units/ML 3 ML Pen SUBCUT SCH ×2 (07:17→21:04)
[2017-09-01] MEDS: Fenofibrate Nanocrystallized 145 MG Tab PO SCH (08:42)
[2017-09-01] MEDS: Metoprolol Tartrate 25 MG Tab PO SCH ×2 (08:42→20:37)
[2017-09-01] MEDS: Oseltamivir 30 MG Cap PO SCH (08:42)
[2017-09-01] MEDS: Sertraline 25 MG Tab PO SCH (08:42)
[2017-09-01] MEDS: Cholestyramine/Aspartame Powder 4 GM Packet PO SCH ×2 (08:44→20:38)
[2017-09-01] MEDS: Vancomycin 50 MG/ML 150ML Oral Solution Kit PO SCH ×4 (08:45→20:38)
[2017-09-01] MEDS: Enoxaparin 30 MG/0.3 ML Syringe SUBCUT SCH (08:46)
[2017-09-01] MEDS: Saccharomyces Boulardii (Probiotic) 250 MG Cap PO SCH ×2 (08:46→20:37)
[2017-09-01] MEDS ORDERED: Pneumococcal Polyvalent-23 Vaccine 0.5 ML SDV IM ONE (09:05)
[2017-09-01] MEDS ORDERED: Warfarin 2 MG Tab PO SCH (18:00)
--- NOTE | 2017-09-01 18:24 | PCM.PN ---
- General Info Date of Service: 09/01/17 Functional Status: Reports: Tolerating Diet, Urinating - Review of Systems General: Reports: Weakness, Malaise HEENT: Reports: No Symptoms Pulmonary: Reports: No Symptoms Cardiovascular: Reports: No Symptoms Gastrointestinal: Reports: Diarrhea Genitourinary: Reports: No Symptoms Musculoskeletal: Reports: No Symptoms Skin: Reports: No Symptoms Neurological: Reports: No Symptoms Psychiatric: Reports: No Symptoms - Patient Data Vitals - Most Recent: Last Vital Signs Temp 37.1 C 09/01/17 16:48 Pulse 93 09/01/17 16:48 Resp 20 09/01/17 16:48 BP 149/66 H 09/01/17 16:48 Pulse Ox 91 L 09/01/17 16:48 Weight - Most Recent: 68.311 kg I&O - Last 24 Hours: Intake & Output 09/01/17 09/01/17 09/01/17 06:59 14:59 22:59 Intake Total 1184 0 700 Balance 1184 0 700 Lab Results Last 24 Hours: Laboratory Results - last 24 hr 08/31/17 09/01/17 09/01/17 Range/Units 21:50 06:17 06:17 WBC 7.51 (3.98-10.04) K/mm3 RBC 4.69 (3.98-5.22) M/mm3 Hgb 13.0 (11.2-15.7) gm/L Hct 41.0 (34.1-44.9) % MCV 87.4 (79.4-94.8) fl MCH 27.7 (25.6-32.2) pg MCHC 31.7 L (32.2-35.5) g/dl RDW Std Deviation 45.1 (36.4-46.3) fL Plt Count 211 (182-369) K/mm3 MPV 10.3 (9.4-12.3) fl Neut % (Auto) 82.3 H (34.0-71.1) % Lymph % (Auto) 6.1 L (19.3-51.7) % [place] % (Auto) 9.7 (4.7-12.5) % Eos % (Auto) 1.5 (0.7-5.8) Baso % (Auto) 0.1 (0.1-1.2) % Neut # (Auto) 6.18 H (1.56-6.13) K/mm3 Lymph # (Auto) 0.46 L (1.18-3.74) K/mm3 [place] # (Auto) 0.73 H (0.24-0.36) K/mm3 Eos # (Auto) 0.11 (0.04-0.36) K/mm3 Baso # (Auto) 0.01 (0.01-0.08) K/mm3 Manual Slide Review Abnormal smear PT (8.0-13.0) SECONDS INR Sodium 146 H (136-145) mEq/L Potassium 3.7 (3.5-5.1) mEq/L Chloride 113 H (98-107) mEq/L Carbon Dioxide 22 (21-32) mEq/L Anion Gap 14.7 (5-15) BUN 18 (7-18) mg/dL Creatinine 1.0 (0.55-1.02) mg/dL Est Cr Clr Drug Dosing 27.39 mL/min Estimated GFR (MDRD) 52 (>60) mL/min BUN/Creatinine Ratio 18.0 (14-18) Glucose 116 H (83-115) mg/dL POC Glucose 143 H (83-110) mg/dL Calcium 8.4 L (8.5-10.1) mg/dL Magnesium 1.9 (1.8-2.4) mg/dl C-Reactive Protein 6.0 H* (<1.0) mg/dL 09/01/17 09/01/17 Range/Units 06:17 07:33 WBC (3.98-10.04) K/mm3 RBC (3.98-5.22) M/mm3 Hgb (11.2-15.7) gm/L Hct (34.1-44.9) % MCV (79.4-94.8) fl MCH (25.6-32.2) pg MCHC (32.2-35.5) g/dl RDW Std Deviation (36.4-46.3) fL Plt Count (182-369) K/mm3 MPV (9.4-12.3) fl Neut % (Auto) (34.0-71.1) % Lymph % (Auto) (19.3-51.7) % [place] % (Auto) (4.7-12.5) % Eos % (Auto) (0.7-5.8) Baso % (Auto) (0.1-1.2) % Neut # (Auto) (1.56-6.13) K/mm3 Lymph # (Auto) (1.18-3.74) K/mm3 [place] # (Auto) (0.24-0.36) K/mm3 Eos # (Auto) (0.04-0.36) K/mm3 Baso # (Auto) (0.01-0.08) K/mm3 Manual Slide Review PT 27.6 H (8.0-13.0) SECONDS INR 2.39 Sodium (136-145) mEq/L Potassium (3.5-5.1) mEq/L Chloride (98-107) mEq/L Carbon Dioxide (21-32) mEq/L Anion Gap (5-15) BUN (7-18) mg/dL Creatinine (0.55-1.02) mg/dL Est Cr Clr Drug Dosing mL/min Estimated GFR (MDRD) (>60) mL/min BUN/Creatinine Ratio (14-18) Glucose (83-115) mg/dL POC Glucose 104 (83-110) mg/dL Calcium (8.5-10.1) mg/dL Magnesium (1.8-2.4) mg/dl C-Reactive Protein (<1.0) mg/dL Umberto Results Last 24 Hours: Microbiology 08/30/17 20:23 Gram Stain - Final Sputum - Expectorated Sputum Culture - Preliminary Med Orders - Current: Current Medications Acetaminophen (Tylenol) 650 mg PO Q6H PRN PRN Reason: Pain Last Admin: 08/30/17 17:23 Dose: 650 mg Cholestyramine Resin (Prevalite Packet) 4 gm PO BID [facility] Last Admin: 09/01/17 08:44 Dose: 4 gm Enalapril Maleate (Vasotec) 20 mg PO BID [facility] Enoxaparin Sodium (Lovenox) 30 mg SUBCUT DAILY [facility] Last Admin: 09/01/17 08:46 Dose: 30 mg Fenofibrate (Tricor) 145 mg PO DAILY [facility] Last Admin: 09/01/17 08:42 Dose: 145 mg Guaifenesin/Phenylephrine HCl (Robitussin Dm) 10 ml PO Q4H PRN PRN Reason: Cough Last Admin: 09/01/17 10:12 Dose: 10 ml Hydralazine HCl (Apresoline) 20 mg IVPUSH Q6H PRN PRN Reason: Hypertension Last Admin: 09/01/17 12:15 Dose: 20 mg Metronidazole 500 mg/ Premix 100 mls @ 100 mls/hr IV Q8H [facility] Last Admin: 09/01/17 16:58 Dose: 100 mls/hr Ceftriaxone Sodium 1 gm/ (Dextrose/Water) 100 mls @ 200 mls/hr IV Q24H [facility] Stop: 09/01/17 21:30 Last Admin: 08/31/17 18:30 Dose: 200 mls/hr Insulin Aspart (Novolog) 0 unit SUBCUT BID@0700,2100 [facility] PRN Reason: Protocol Last Admin: 09/01/17 07:17 Dose: Not Given Metoprolol Tartrate (Lopressor) 12.5 mg PO BID [facility] Last Admin: 09/01/17 08:42 Dose: 12.5 mg Multi-Ingred Cream/Lotion/Oil/Oint (Zinc Oxide) 0 gm TOP Q1H PRN PRN Reason: Diarrhea Oseltamivir Phosphate (Tamiflu) 30 mg PO DAILY [facility] Stop: 09/02/17 12:00 Last Admin: 09/01/17 08:42 Dose: 30 mg Diphenhyd/Lidocaine/ (Nystatin Mouthwash) 0 each PO QID PRN PRN Reason: Sore Throat Saccharomyces Boulardii (Florastor) 250 mg PO BID [facility] Last Admin: 09/01/17 08:46 Dose: 250 mg Sertraline HCl (Zoloft) 75 mg PO DAILY [facility] Last Admin: 09/01/17 08:42 Dose: 75 mg Simvastatin (Zocor) 20 mg PO BEDTIME [facility] Last Admin: 08/31/17 21:33 Dose: 20 mg Sodium Chloride (Saline Flush) 10 ml FLUSH ASDIRECTED PRN PRN Reason: Keep Vein Open Last Admin: 08/29/17 19:16 Dose: 10 ml Temazepam (Restoril) 15 mg PO BEDTIME PRN PRN Reason: Insomnia Last Admin: 09/01/17 00:15 Dose: 15 mg Vancomycin HCl (First-Vancomycin 50 Compounding Kit) 500 mg PO QID [facility] Last Admin: 09/01/17 16:58 Dose: 10 ml Warfarin Sodium (Coumadin) 2 mg PO SuTuWeThSa [facility] Warfarin Sodium (Coumadin) 1 mg PO MoFr [facility] Last Admin: 08/31/17 17:12 Dose: 1 mg [place] (Tucks) 1 pad TOP TID PRN PRN Reason: perineal Last Admin: 08/31/17 13:58 Dose: 1 pad Discontinued Medications Sodium Chloride (Normal Saline) 1,000 mls @ 999 mls/hr IV ONETIME ONE Stop: 08/29/17 19:37 Last Admin: 08/29/17 21:09 Dose: Not Given Sodium Chloride (Normal Saline) 500 mls @ 500 mls/hr IV .BOLUS ONE Stop: 08/29/17 19:40 Last Admin: 08/29/17 19:15 Dose: 500 mls/hr Sodium Chloride (Normal Saline) 1,000 mls @ 100 mls/hr IV ASDIRECTED [facility] Sodium Chloride (Normal Saline) 1,000 mls @ 150 mls/hr IV ASDIRECTED [facility] Stop: 08/30/17 05:00 Last Admin: 08/30/17 01:18 Dose: 150 mls/hr Sodium Chloride (Normal Saline) 1,000 mls @ 100 mls/hr IV ASDIRECTED [facility] Last Admin: 08/30/17 11:14 Dose: 100 mls/hr Metronidazole (Flagyl 500 Mg In Ns 100 Ml) Confirm Administered Dose 100 mls @ as directed .ROUTE .STK-MED ONE Stop: 08/30/17 17:39 Last Admin: 08/30/17 17:55 Dose: Not Given Sodium Chloride (Normal Saline) 1,000 mls @ 75 mls/hr IV ASDIRECTED [facility] Last Admin: 09/01/17 03:24 Dose: 75 mls/hr Ceftriaxone Sodium 2 gm/ (Sodium Chloride) 100 mls @ 200 mls/hr IV ONETIME ONE Stop: 08/30/17 19:29 Last Admin: 08/30/17 19:05 Dose: 200 mls/hr Insulin Aspart (Novolog) 0 unit SUBCUT BID [facility] PRN Reason: Protocol Last Admin: 08/30/17 08:24 Dose: Not Given Metoprolol Tartrate (Lopressor) 12.5 mg PO ONETIME ONE Stop: 08/30/17 14:16 Last Admin: 08/30/17 14:12 Dose: 12.5 mg Januvia 100mg Own (Med) 1 each PO DAILY [facility] Non-Formulary Medication (Acetaminophen) 1 tab PO Q6HR PRN PRN Reason: Pain (moderate 4-6) Non-Formulary Medication (Enalapril) 10 mg PO BID [facility] Non-Formulary Medication (Sitagliptin) 100 mg PO DAILY [facility] Non-Formulary Medication (Warfarin) 1 mg PO ASDIRECTED [facility] Oseltamivir Phosphate (Tamiflu) 30 mg PO BID [facility] Last Admin: 08/31/17 09:16 Dose: 30 mg Pneumococcal Polyvalent Vaccine (Pneumovax 23) 0.5 ml IM .ONCE ONE Stop: 09/01/17 09:06 Sertraline HCl (Zoloft) 50 mg PO DAILY [facility] Last Admin: 08/31/17 09:16 Dose: 50 mg Sertraline HCl (Zoloft) 25 mg PO ONETIME ONE Stop: 08/31/17 20:31 Last Admin: 08/31/17 21:34 Dose: 25 mg Temazepam (Restoril) 15 mg PO BEDTIME PRN PRN Reason: Insomnia Warfarin Sodium (Coumadin) 2 mg PO ASDIRECTED [facility] - Exam Quality Assessment: Supplemental Oxygen, DVT Prophylaxis General: Alert, Oriented, Cooperative HEENT: Pupils Equal, Pupils Reactive, EOMI Neck: Supple, Trachea Midline, No JVD Lungs: Normal Respiratory Effort Cardiovascular: Regular Rate, Regular Rhythm GI/Abdominal Exam: Normal Bowel Sounds, Soft, Non-Tender, No Organomegaly, No Distention (Female) Exam: Deferred Back Exam: Normal Inspection Extremities: Normal Inspection Skin: Warm Neurological: No New Focal Deficit Psy/Mental Status: Alert - Problem List Review Problem List Initiated/Reviewed/Updated: Yes - My Orders Last 24 Hours: My Active Orders 08/31/17 18:00 Warfarin [Coumadin] 1 mg PO MoFr 08/31/17 19:00 cefTRIAXone [Rocephin] 1 gm Dextrose 5% in Water 100 ml IV Q24H 08/31/17 20:22 Zinc Oxide 0 gm TOP Q1H PRN 08/31/17 21:00 Cholestyramine/Aspartame [Prevalite Packet] 4 gm PO BID 08/31/17 23:37 Temazepam [Restoril] 15 mg PO BEDTIME PRN 09/01/17 00:05 Dextromethorphan/guaiFENesin [Robitussin DM] 10 ml PO Q4H PRN 09/01/17 09:00 Oseltamivir [Tamiflu] 30 mg PO DAILY Sertraline [Zoloft] 75 mg PO DAILY 09/01/17 18:00 Warfarin [Coumadin] 2 mg PO SuTuWeThSa 09/01/17 21:00 Enalapril [Vasotec] 20 mg PO BID 09/02/17 05:00 BASIC METABOLIC PANEL,BMP [CHEM] DAILY CBC WITH AUTO DIFF [HEME] DAILY CRP [C-REACTIVE PROTEIN] [CHEM] DAILY MAGNESIUM [CHEM] DAILY 09/03/17 05:00 BASIC METABOLIC PANEL,BMP [CHEM] DAILY CBC WITH AUTO DIFF [HEME] DAILY CRP [C-REACTIVE PROTEIN] [CHEM] DAILY MAGNESIUM [CHEM] DAILY - Plan Plan:: Impression: S/P fall without LOC Negative radiographic studies History of recent C Diff infection Query failed or incomplete treatment; persistent diarrhea-->improving Leukocytosis Repeat Influenza A screen, positive UC with G negative rods, Klebsiella-->nroman sensitive, stop Rocephin after today. Chronic GERD HTN HLD Dementia Anxiety Diabetes mellitus type 2 CVA Plan: IVF Vanco/Flagyl/Tamiflu renal dose Home meds UC/BC Daily Labns DVT/GI prophylaxis CSM/PT/OT
[2017-09-01] MEDS: cefTRIAXone 1 GM in Dextrose 5% in Water 100 ML IV SCH ×2 (18:36)
[2017-09-01] MEDS: Simvastatin 20 MG Tab PO SCH (20:36)
--- NOTE | 2017-09-01 22:33 | PCM.SN ---
- Free Text/Narrative Note: Was called to patient's bedside by nursing. Nursing entered room and found patient lying next to bed and a praying type of position. They had positioned the patient back in bed prior to my arrival. Patient is laying on left side in bed. Patient reports her buttocks hurts but denies pain anywhere else. Her buttocks has been severely excoriated due to C. difficile infection and diarrhea. She is confused but does answer questions appropriately. No head, neck, or back pain. No hip pain on palpitation. No pain to knees or legs on palpation. No signs of bruising to knees or hips. It appears she is uninjured and may have just slid herself down out of bed. Her exam is essentially benign. Discussed with nursing the importance of monitoring for injury should the patient develop any pain or bruising. As I stated before, at this time no signs of injury or pain is noted.
[2017-09-02] MEDS: metroNIDAZOLE/Normal Saline 500 MG in Premix Bag 1 BAG IV SCH ×3 (05:43→18:05)
[2017-09-02] MEDS: Acetaminophen 325 MG Tab PO PRN (05:46)
[2017-09-02] MEDS: Saccharomyces Boulardii (Probiotic) 250 MG Cap PO SCH ×2 (10:37→22:15)
[2017-09-02] MEDS: Fenofibrate Nanocrystallized 145 MG Tab PO SCH (10:38)
[2017-09-02] MEDS: Metoprolol Tartrate 25 MG Tab PO SCH ×2 (10:38→22:17)
[2017-09-02] MEDS: Sertraline 25 MG Tab PO SCH (10:38)
[2017-09-02] MEDS: Cholestyramine/Aspartame Powder 4 GM Packet PO SCH ×2 (10:38→22:14)
[2017-09-02] MEDS: Enoxaparin 30 MG/0.3 ML Syringe SUBCUT SCH (10:39)
[2017-09-02] MEDS: Insulin Aspart 100 Units/ML 3 ML Pen SUBCUT SCH ×2 (10:40→22:21)
[2017-09-02] MEDS: Vancomycin 50 MG/ML 150ML Oral Solution Kit PO SCH ×4 (10:40→22:41)
[2017-09-02] MEDS: Oseltamivir 30 MG Cap PO SCH (10:43)
[2017-09-02] MEDS: hydrALAZINE 20 MG/ML SDV IVPUSH PRN (13:44)
[2017-09-02] MEDS: Ondansetron 4 MG/2 ML SDV IVPUSH PRN (13:44)
[2017-09-02] MEDS: Albuterol/Ipratropium 3.0-0.5 MG/3 ML Neb Soln NEB PRN (15:01)
--- NOTE | 2017-09-02 16:00 | CR ---
Chest: 2 views of the chest were obtained. Comparison: Previous chest x-ray of 04/16/17. Findings: Heart shows a slight left ventricular configuration. Tortuous thoracic aorta is seen. Widening of the superior mediastinum is seen which is stable. Mild increased density within both lung bases are noted. Small left-sided pleural effusion is seen. Impression: 1. Small left-sided pleural effusion. 2. Mild increased density within both lung bases with differential including aspiration, pneumonia as well as atelectasis. Diagnostic code #3
--- NOTE | 2017-09-02 18:48 | PCM.PN ---
- General Info Date of Service: 09/02/17 Admission Dx/Problem (Free Text): UTI, Influenza Subjective Update: In to see Connie smart. Her daughter and daughter's family at bedside. Patient is in good spirits. Denies any new concerns, with exception of her backside hurting, which is improved. She is joking with me. She is working on eating supper with the assistance of her family. There were some concerns over possible aspiration today as the patient began to cough while eating some crackers. WELDER ASSISTANT was consulted and found no deficit. She did recommend the patient being bolt upright while eating. This was relayed to family and nursing. Aspiration cautions were started. Chest x-ray was obtained and interpreted by Dr. Leon as bilateral lower densities with differential diagnosis including atelectasis, aspiration, and pneumonia. At this time she does not have a fever or white count. During my exam she has no cough or signs of infection. IS was ordered. She had been hypertensive. This may have been in relation to her pain level as well. Medications have been adjusted. She is responded well to these new medications. She is doing quite well. I will change her activity level to up with assistance as I feel she is ready for an increased level. PT is recommending SNF placement. I discussed plan of care with the patient and her family. We had a lengthy discussion about C. difficile as well as influenza. They voiced understanding and were in agreement with the plan. Functional Status: Reports: Pain Controlled, Tolerating Diet, Urinating. Denies : New Symptoms - Review of Systems General: Reports: Weakness, Malaise. Denies: Fever, Fatigue HEENT: Reports: No Symptoms. Denies: Ear Pain, Eye Pain, Headaches, Sore Throat Pulmonary: Reports: No Symptoms. Denies: Shortness of Breath, Pleuritic Chest Pain, Cough, Sputum Cardiovascular: Reports: No Symptoms. Denies: Chest Pain, Palpitations, Dyspnea on Exertion Gastrointestinal: Reports: Diarrhea (greatly improved ). Denies: Abdominal Pain , Constipation, Nausea, Vomiting Genitourinary: Reports: No Symptoms. Denies: Dysuria, Frequency, Burning, Pain Musculoskeletal: Reports: No Symptoms Skin: Reports: No Symptoms Neurological: Reports: No Symptoms Psychiatric: Reports: No Symptoms - Patient Data Vitals - Most Recent: Last Vital Signs Temp 98.1 F 09/02/17 16:07 Pulse 98 09/02/17 16:07 Resp 17 09/02/17 16:07 BP 131/50 L 09/02/17 16:09 Pulse Ox 93 L 09/02/17 16:07 Weight - Most Recent: 148 lb 3.2 oz I&O - Last 24 Hours: Intake & Output 09/02/17 09/02/17 09/02/17 06:59 14:59 22:59 Intake Total 300 0 800 Balance 300 0 800 Lab Results Last 24 Hours: Laboratory Results - last 24 hr 09/01/17 09/02/17 09/02/17 Range/Units 20:58 06:26 06:26 WBC 9.02 (3.98-10.04) K/mm3 RBC 4.35 (3.98-5.22) M/mm3 Hgb 12.2 (11.2-15.7) gm/L Hct 38.0 (34.1-44.9) % MCV 87.4 (79.4-94.8) fl MCH 28.0 (25.6-32.2) pg MCHC 32.1 L (32.2-35.5) g/dl RDW Std Deviation 43.8 (36.4-46.3) fL Plt Count 257 (182-369) K/mm3 MPV 9.9 (9.4-12.3) fl Neut % (Auto) 82.5 H (34.0-71.1) % Lymph % (Auto) 5.5 L (19.3-51.7) % [place] % (Auto) 9.5 (4.7-12.5) % Eos % (Auto) 2.2 (0.7-5.8) Baso % (Auto) 0.1 (0.1-1.2) % Neut # (Auto) 7.43 H (1.56-6.13) K/mm3 Lymph # (Auto) 0.50 L (1.18-3.74) K/mm3 [place] # (Auto) 0.86 H (0.24-0.36) K/mm3 Eos # (Auto) 0.20 (0.04-0.36) K/mm3 Baso # (Auto) 0.01 (0.01-0.08) K/mm3 Manual Slide Review Abnormal smear PT (8.0-13.0) SECONDS INR Sodium 145 (136-145) mEq/L Potassium 3.6 (3.5-5.1) mEq/L Chloride 111 H (98-107) mEq/L Carbon Dioxide 23 (21-32) mEq/L Anion Gap 14.6 (5-15) BUN 17 (7-18) mg/dL Creatinine 1.0 (0.55-1.02) mg/dL Est Cr Clr Drug Dosing 27.39 mL/min Estimated GFR (MDRD) 52 (>60) mL/min BUN/Creatinine Ratio 17.0 (14-18) Glucose 127 H (83-115) mg/dL POC Glucose 151 H (83-110) mg/dL Calcium 8.4 L (8.5-10.1) mg/dL Magnesium 1.8 (1.8-2.4) mg/dl C-Reactive Protein 3.5 H* (<1.0) mg/dL 09/02/17 09/02/17 09/02/17 Range/Units 06:57 08:20 11:24 WBC (3.98-10.04) K/mm3 RBC (3.98-5.22) M/mm3 Hgb (11.2-15.7) gm/L Hct (34.1-44.9) % MCV (79.4-94.8) fl MCH (25.6-32.2) pg MCHC (32.2-35.5) g/dl RDW Std Deviation (36.4-46.3) fL Plt Count (182-369) K/mm3 MPV (9.4-12.3) fl Neut % (Auto) (34.0-71.1) % Lymph % (Auto) (19.3-51.7) % [place] % (Auto) (4.7-12.5) % Eos % (Auto) (0.7-5.8) Baso % (Auto) (0.1-1.2) % Neut # (Auto) (1.56-6.13) K/mm3 Lymph # (Auto) (1.18-3.74) K/mm3 [place] # (Auto) (0.24-0.36) K/mm3 Eos # (Auto) (0.04-0.36) K/mm3 Baso # (Auto) (0.01-0.08) K/mm3 Manual Slide Review PT 40.4 H (8.0-13.0) SECONDS INR 3.43 Sodium (136-145) mEq/L Potassium (3.5-5.1) mEq/L Chloride (98-107) mEq/L Carbon Dioxide (21-32) mEq/L Anion Gap (5-15) BUN (7-18) mg/dL Creatinine (0.55-1.02) mg/dL Est Cr Clr Drug Dosing mL/min Estimated GFR (MDRD) (>60) mL/min BUN/Creatinine Ratio (14-18) Glucose (83-115) mg/dL POC Glucose 106 131 H (83-110) mg/dL Calcium (8.5-10.1) mg/dL Magnesium (1.8-2.4) mg/dl C-Reactive Protein (<1.0) mg/dL Umberto Results Last 24 Hours: Microbiology 08/30/17 20:23 Gram Stain - Final Sputum - Expectorated Sputum Culture - Final NORMAL RESPIRATORY RAN 2 DAYS Med Orders - Current: Current Medications Acetaminophen (Tylenol) 650 mg PO Q6H PRN PRN Reason: Pain Last Admin: 09/02/17 05:46 Dose: 650 mg Albuterol/Ipratropium (Duoneb 3.0-0.5 Mg/3 Ml) 3 ml NEB Q6HRRT PRN PRN Reason: wheezing/SOB/cough Last Admin: 09/02/17 15:01 Dose: 3 ml Cholestyramine Resin (Prevalite Packet) 4 gm PO BID [facility] Last Admin: 09/02/17 10:38 Dose: 4 gm Enalapril Maleate (Vasotec) 20 mg PO BID [facility] Last Admin: 09/02/17 10:39 Dose: 20 mg Enoxaparin Sodium (Lovenox) 30 mg SUBCUT DAILY [facility] Last Admin: 09/02/17 10:39 Dose: 30 mg Fenofibrate (Tricor) 145 mg PO DAILY [facility] Last Admin: 09/02/17 10:38 Dose: 145 mg Guaifenesin/Phenylephrine HCl (Robitussin Dm) 10 ml PO Q4H PRN PRN Reason: Cough Last Admin: 09/01/17 21:00 Dose: 5 ml Hydralazine HCl (Apresoline) 20 mg IVPUSH Q6H PRN PRN Reason: Hypertension Last Admin: 09/02/17 13:44 Dose: 20 mg Metronidazole 500 mg/ Premix 100 mls @ 100 mls/hr IV Q8H [facility] Last Admin: 09/02/17 18:05 Dose: 100 mls/hr Insulin Aspart (Novolog) 0 unit SUBCUT BID@0700,2100 [facility] PRN Reason: Protocol Last Admin: 09/02/17 10:40 Dose: Not Given Metoprolol Tartrate (Lopressor) 12.5 mg PO BID [facility] Last Admin: 09/02/17 10:38 Dose: 12.5 mg Multi-Ingred Cream/Lotion/Oil/Oint (Zinc Oxide) 0 gm TOP Q1H PRN PRN Reason: Diarrhea Ondansetron HCl (Zofran) 4 mg IVPUSH Q4H PRN PRN Reason: Nausea/Vomiting Last Admin: 09/02/17 13:44 Dose: 4 mg Diphenhyd/Lidocaine/ (Nystatin Mouthwash) 0 each PO QID PRN PRN Reason: Sore Throat Saccharomyces Boulardii (Florastor) 250 mg PO BID [facility] Last Admin: 09/02/17 10:37 Dose: 250 mg Sertraline HCl (Zoloft) 75 mg PO DAILY [facility] Last Admin: 09/02/17 10:38 Dose: 75 mg Simvastatin (Zocor) 20 mg PO BEDTIME [facility] Last Admin: 09/01/17 20:36 Dose: 20 mg Sodium Chloride (Saline Flush) 10 ml FLUSH ASDIRECTED PRN PRN Reason: Keep Vein Open Last Admin: 08/29/17 19:16 Dose: 10 ml Temazepam (Restoril) 15 mg PO BEDTIME PRN PRN Reason: Insomnia Last Admin: 09/01/17 21:03 Dose: 15 mg Vancomycin HCl (First-Vancomycin 50 Compounding Kit) 500 mg PO QID [facility] Last Admin: 09/02/17 18:05 Dose: 10 ml Witch Nikky (Tucks) 1 pad TOP TID PRN PRN Reason: perineal Last Admin: 08/31/17 13:58 Dose: 1 pad Discontinued Medications Sodium Chloride (Normal Saline) 1,000 mls @ 999 mls/hr IV ONETIME ONE Stop: 08/29/17 19:37 Last Admin: 08/29/17 21:09 Dose: Not Given Sodium Chloride (Normal Saline) 500 mls @ 500 mls/hr IV .BOLUS ONE Stop: 08/29/17 19:40 Last Admin: 08/29/17 19:15 Dose: 500 mls/hr Sodium Chloride (Normal Saline) 1,000 mls @ 100 mls/hr IV ASDIRECTED [facility] Sodium Chloride (Normal Saline) 1,000 mls @ 150 mls/hr IV ASDIRECTED [facility] Stop: 08/30/17 05:00 Last Admin: 08/30/17 01:18 Dose: 150 mls/hr Sodium Chloride (Normal Saline) 1,000 mls @ 100 mls/hr IV ASDIRECTED [facility] Last Admin: 08/30/17 11:14 Dose: 100 mls/hr Metronidazole (Flagyl 500 Mg In Ns 100 Ml) Confirm Administered Dose 100 mls @ as directed .ROUTE .STK-MED ONE Stop: 08/30/17 17:39 Last Admin: 08/30/17 17:55 Dose: Not Given Sodium Chloride (Normal Saline) 1,000 mls @ 75 mls/hr IV ASDIRECTED [facility] Last Admin: 09/01/17 03:24 Dose: 75 mls/hr Ceftriaxone Sodium 2 gm/ (Sodium Chloride) 100 mls @ 200 mls/hr IV ONETIME ONE Stop: 08/30/17 19:29 Last Admin: 08/30/17 19:05 Dose: 200 mls/hr Ceftriaxone Sodium 1 gm/ (Dextrose/Water) 100 mls @ 200 mls/hr IV Q24H [facility] Stop: 09/01/17 21:30 Last Admin: 09/01/17 18:36 Dose: 200 mls/hr Insulin Aspart (Novolog) 0 unit SUBCUT BID [facility] PRN Reason: Protocol Last Admin: 08/30/17 08:24 Dose: Not Given Metoprolol Tartrate (Lopressor) 12.5 mg PO ONETIME ONE Stop: 08/30/17 14:16 Last Admin: 08/30/17 14:12 Dose: 12.5 mg Januvia 100mg Own (Med) 1 each PO DAILY [facility] Non-Formulary Medication (Acetaminophen) 1 tab PO Q6HR PRN PRN Reason: Pain (moderate 4-6) Non-Formulary Medication (Enalapril) 10 mg PO BID [facility] Non-Formulary Medication (Sitagliptin) 100 mg PO DAILY [facility] Non-Formulary Medication (Warfarin) 1 mg PO ASDIRECTED [facility] Oseltamivir Phosphate (Tamiflu) 30 mg PO BID [facility] Last Admin: 08/31/17 09:16 Dose: 30 mg Oseltamivir Phosphate (Tamiflu) 30 mg PO DAILY [facility] Stop: 09/02/17 12:00 Last Admin: 09/02/17 10:43 Dose: 30 mg Pneumococcal Polyvalent Vaccine (Pneumovax 23) 0.5 ml IM .ONCE ONE Stop: 09/01/17 09:06 Sertraline HCl (Zoloft) 50 mg PO DAILY [facility] Last Admin: 08/31/17 09:16 Dose: 50 mg Sertraline HCl (Zoloft) 25 mg PO ONETIME ONE Stop: 08/31/17 20:31 Last Admin: 08/31/17 21:34 Dose: 25 mg Temazepam (Restoril) 15 mg PO BEDTIME PRN PRN Reason: Insomnia Warfarin Sodium (Coumadin) 2 mg PO ASDIRECTED [facility] Warfarin Sodium (Coumadin) 2 mg PO SuTuWeThSa [facility] Last Admin: 09/01/17 18:51 Dose: 2 mg Warfarin Sodium (Coumadin) 1 mg PO MoFr [facility] Last Admin: 08/31/17 17:12 Dose: 1 mg - Exam Quality Assessment: Supplemental Oxygen, DVT Prophylaxis General: Alert, Oriented, Cooperative, No Acute Distress HEENT: Pupils Equal, Pupils Reactive, EOMI, Mucous Membr. Moist/[place] Neck: Supple, Trachea Midline, No JVD, No Thyromegaly Lungs: Clear to Auscultation, Normal Respiratory Effort, Decreased Breath Sounds Cardiovascular: Regular Rate, Regular Rhythm GI/Abdominal Exam: Normal Bowel Sounds, Soft, Non-Tender, No Organomegaly, No Distention, No Abnormal Bruit, No Mass, Pelvis Stable (Female) Exam: Deferred Back Exam: Normal Inspection, Full Range of Motion Extremities: Normal Inspection, Normal Range of Motion, Non-Tender, No Pedal Edema, Normal Capillary Refill Peripheral Pulses: 2+: Radial (L), Radial (R), Posterior Tibial (L), Posterior Tibial (R), Dorsalis Pedis (L), Dorsalis Pedis (R) Skin: Warm, Dry, Other (Excoriation to groin from chronic diarrhea. Pain appears to be improving.) Wound/Incisions: Healing Well Neurological: No New Focal Deficit Psy/Mental Status: Alert, Normal Affect, Normal Mood - Problem List & Annotations (1) C. difficile diarrhea SNOMED Code(s): 7504193969156 Code(s): A04.72 - ENTEROCOLITIS D/T CLOSTRIDIUM DIFFICILE, NOT SPCF RECUR Status: Acute Priority: High Current Visit: Yes (2) Influenza A SNOMED Code(s): 343400991 Code(s): J10.1 - FLU DUE TO OTH IDENT INFLUENZA VIRUS W OTH RESP MANIFEST Status: Acute Priority: High Current Visit: Yes (3) Acute kidney injury SNOMED Code(s): 09312687 Code(s): N17.9 - ACUTE KIDNEY FAILURE, UNSPECIFIED Status: Acute Priority : High Current Visit: Yes (4) Anticoagulated on Coumadin SNOMED Code(s): 21843614 Code(s): Z51.81 - ENCOUNTER FOR THERAPEUTIC DRUG LEVEL MONITORING; 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) USE OF ANTICOAGULANTS Status: Chronic Priority: Medium Current Visit: Yes (5) Fall SNOMED Code(s): 2389394 Code(s): W19.XXXA - UNSPECIFIED FALL, INITIAL ENCOUNTER Status: Acute Priority: High Current Visit: Yes Qualifiers: Encounter type: initial encounter Qualified Code(s): W19.XXXA - Unspecified fall, initial encounter (6) UTI (lower urinary tract infection) SNOMED Code(s): 6662361 Code(s): N39.0 - URINARY TRACT INFECTION, SITE NOT SPECIFIED Status: Acute Priority: High Current Visit: Yes (7) Rhabdomyolysis SNOMED Code(s): 502148469 Code(s): M62.82 - RHABDOMYOLYSIS Status: Resolved Priority: High Current Visit: Yes Qualifiers: Rhabdomyolysis type: non-traumatic Qualified Code(s): M62.82 - Rhabdomyolysis (8) Hypertension SNOMED Code(s): 86722737 Code(s): I10 - ESSENTIAL (PRIMARY) HYPERTENSION Status: Acute Priority: High Current Visit: Yes Qualifiers: Hypertension type: essential hypertension Qualified Code(s): I10 - Essential (primary) hypertension - Problem List Review Problem List Initiated/Reviewed/Updated: Yes - My Orders Last 24 Hours: My Active Orders 09/02/17 14:44 Aspiration Precautions [RC] ASDIRECTED 09/02/17 14:46 HOB [Head of Bed Elevation] [RC] ASDIRECTED RT Aerosol Therapy [RC] .PRN Albuterol/Ipratropium [DuoNeb 3.0-0.5 MG/3 ML] 3 ml NEB Q6HRRT PRN 09/02/17 14:48 Consult to Speech Language Pathology [WELDER ASSISTANT Evaluation and Treatment] [CONS] Routine 09/02/17 18:40 RT Incentive Spirometry [RC] Q2HWA - Plan Plan:: Impression: S/P fall without LOC Negative radiographic studies History of recent C Diff infection Query failed or incomplete treatment; persistent diarrhea-->improving Leukocytosis--> resolved Repeat Influenza A screen, positive UC with G negative rods, Klebsiella-->norman sensitive--> stop Rocephin . Elevated INR - hold warfarin ?Aspiration vs atelectasis - nursing notes cough, WELDER ASSISTANT swallow study neg; aspiration precautions -CXR: pneumonia versus atelectasis versus aspiration -> no infection symptoms , IS, monitor HTN - acute on chronic -Home enalapril and PRN hydarlazine Chronic: GERD HTN - as above HLD Dementia Anxiety Diabetes mellitus type 2 CVA Plan: IVF Vanco/Flagyl/Tamiflu renal dose--> stop tamiflu Home meds UC/BC Daily Labns DVT/GI prophylaxis CSM/PT/OT
[2017-09-02] MEDS: Simvastatin 20 MG Tab PO SCH (22:19)
[2017-09-03] MEDS: metroNIDAZOLE/Normal Saline 500 MG in Premix Bag 1 BAG IV SCH ×3 (02:11→16:38)
[2017-09-03] MEDS: Insulin Aspart 100 Units/ML 3 ML Pen SUBCUT SCH ×2 (06:37→22:26)
[2017-09-03] MEDS: Enoxaparin 30 MG/0.3 ML Syringe SUBCUT SCH (08:32)
[2017-09-03] MEDS: Saccharomyces Boulardii (Probiotic) 250 MG Cap PO SCH ×2 (08:32→22:05)
[2017-09-03] MEDS: Albuterol/Ipratropium 3.0-0.5 MG/3 ML Neb Soln NEB PRN (08:33)
[2017-09-03] MEDS: Vancomycin 50 MG/ML 150ML Oral Solution Kit PO SCH ×4 (08:33→21:17)
[2017-09-03] MEDS: Sertraline 25 MG Tab PO SCH (08:35)
[2017-09-03] MEDS: Fenofibrate Nanocrystallized 145 MG Tab PO SCH (08:35)
[2017-09-03] MEDS: Cholestyramine/Aspartame Powder 4 GM Packet PO SCH ×2 (08:42→21:13)
[2017-09-03] MEDS: Metoprolol Tartrate 25 MG Tab PO SCH ×2 (08:45→21:17)
[2017-09-03] MEDS: hydrALAZINE 20 MG/ML SDV IVPUSH PRN (09:05)
[2017-09-03] MEDS ORDERED: Oseltamivir 30 MG Cap PO ONE (09:45)
[2017-09-03] MEDS: Ondansetron 4 MG/2 ML SDV IVPUSH PRN ×2 (10:13→21:18)
[2017-09-03] MEDS: Acetaminophen 325 MG Tab PO PRN (15:08)
--- NOTE | 2017-09-03 18:03 | PCM.PN ---
- General Info Date of Service: 09/03/17 Admission Dx/Problem (Free Text): UTI, Influenza Subjective Update: In to see Connie smart. Her daughter is at her bedside. She is still at baseline confusion. She has had some stool incontinence today. Stools do appear to be more formed and had been. Her groin is very red and excoriated. She has been getting zinc as well as calamine lotion. Tele-pharmacy was contacted and suggests vitamin A and B cream. We'll attempt this as a barrier. PT wound care consult was put in to see if they have any suggestions. We'll continue IV antibiotics. Earliest she will likely be discharged will be Thursday. Functional Status: Reports: Pain Controlled, Tolerating Diet, Ambulating, Urinating, Incentive Spirometry. Denies: New Symptoms - Review of Systems General: Reports: No Symptoms, Weakness, Fatigue, Malaise. Denies: Fever, Chills HEENT: Reports: No Symptoms Pulmonary: Reports: No Symptoms Cardiovascular: Reports: No Symptoms Gastrointestinal: Reports: Diarrhea (improving- more formed stool today ). Denies: Abdominal Pain, Constipation, Decreased Appetite, Nausea, Vomiting Genitourinary: Reports: No Symptoms Musculoskeletal: Reports: No Symptoms Skin: Reports: Other (Painful excoriated skin on buttocks.) Neurological: Reports: Confusion (Baseline) Psychiatric: Reports: No Symptoms - Patient Data Vitals - Most Recent: Last Vital Signs Temp 97.3 F 09/03/17 15:13 Pulse 97 09/03/17 15:13 Resp 20 09/03/17 15:13 BP 160/64 H 09/03/17 15:13 Pulse Ox 95 09/03/17 15:13 Weight - Most Recent: 149 lb 12.8 oz I&O - Last 24 Hours: Intake & Output 09/03/17 09/03/17 09/03/17 06:59 14:59 22:59 Intake Total 900 0 200 Output Total 250 Balance 900 0 -50 Lab Results Last 24 Hours: Laboratory Results - last 24 hr 09/02/17 09/02/17 09/03/17 Range/Units 17:37 21:13 06:00 WBC (3.98-10.04) K/mm3 RBC (3.98-5.22) M/mm3 Hgb (11.2-15.7) gm/L Hct (34.1-44.9) % MCV (79.4-94.8) fl MCH (25.6-32.2) pg MCHC (32.2-35.5) g/dl RDW Std Deviation (36.4-46.3) fL Plt Count (182-369) K/mm3 MPV (9.4-12.3) fl Neut % (Auto) (34.0-71.1) % Lymph % (Auto) (19.3-51.7) % [place] % (Auto) (4.7-12.5) % Eos % (Auto) (0.7-5.8) Baso % (Auto) (0.1-1.2) % Neut # (Auto) (1.56-6.13) K/mm3 Lymph # (Auto) (1.18-3.74) K/mm3 [place] # (Auto) (0.24-0.36) K/mm3 Eos # (Auto) (0.04-0.36) K/mm3 Baso # (Auto) (0.01-0.08) K/mm3 Manual Slide Review PT (8.0-13.0) SECONDS INR Sodium (136-145) mEq/L Potassium (3.5-5.1) mEq/L Chloride (98-107) mEq/L Carbon Dioxide (21-32) mEq/L Anion Gap (5-15) BUN (7-18) mg/dL Creatinine (0.55-1.02) mg/dL Est Cr Clr Drug Dosing mL/min Estimated GFR (MDRD) (>60) mL/min BUN/Creatinine Ratio (14-18) Glucose (83-115) mg/dL POC Glucose 102 126 H 102 (83-110) mg/dL Calcium (8.5-10.1) mg/dL Magnesium (1.8-2.4) mg/dl C-Reactive Protein (<1.0) mg/dL 09/03/17 09/03/17 09/03/17 Range/Units 06:15 06:15 06:15 WBC 10.27 H (3.98-10.04) K/mm3 RBC 4.69 (3.98-5.22) M/mm3 Hgb 12.9 (11.2-15.7) gm/L Hct 40.4 (34.1-44.9) % MCV 86.1 (79.4-94.8) fl MCH 27.5 (25.6-32.2) pg MCHC 31.9 L (32.2-35.5) g/dl RDW Std Deviation 43.2 (36.4-46.3) fL Plt Count 311 (182-369) K/mm3 MPV 9.6 (9.4-12.3) fl Neut % (Auto) 79.2 H (34.0-71.1) % Lymph % (Auto) 5.8 L (19.3-51.7) % [place] % (Auto) 9.7 (4.7-12.5) % Eos % (Auto) 4.8 (0.7-5.8) Baso % (Auto) 0.2 (0.1-1.2) % Neut # (Auto) 8.13 H (1.56-6.13) K/mm3 Lymph # (Auto) 0.60 L (1.18-3.74) K/mm3 [place] # (Auto) 1.00 H (0.24-0.36) K/mm3 Eos # (Auto) 0.49 H (0.04-0.36) K/mm3 Baso # (Auto) 0.02 (0.01-0.08) K/mm3 Manual Slide Review Abnormal smear PT 56.7 H* (8.0-13.0) SECONDS INR 4.71 Sodium 145 (136-145) mEq/L Potassium 3.6 (3.5-5.1) mEq/L Chloride 111 H (98-107) mEq/L Carbon Dioxide 24 (21-32) mEq/L Anion Gap 13.6 (5-15) BUN 18 (7-18) mg/dL Creatinine 1.1 H (0.55-1.02) mg/dL Est Cr Clr Drug Dosing 24.90 mL/min Estimated GFR (MDRD) 47 (>60) mL/min BUN/Creatinine Ratio 16.4 (14-18) Glucose 120 H (83-115) mg/dL POC Glucose (83-110) mg/dL Calcium 8.7 (8.5-10.1) mg/dL Magnesium 2.0 (1.8-2.4) mg/dl C-Reactive Protein 3.3 H* (<1.0) mg/dL 09/03/17 09/03/17 Range/Units 12:03 16:48 WBC (3.98-10.04) K/mm3 RBC (3.98-5.22) M/mm3 Hgb (11.2-15.7) gm/L Hct (34.1-44.9) % MCV (79.4-94.8) fl MCH (25.6-32.2) pg MCHC (32.2-35.5) g/dl RDW Std Deviation (36.4-46.3) fL Plt Count (182-369) K/mm3 MPV (9.4-12.3) fl Neut % (Auto) (34.0-71.1) % Lymph % (Auto) (19.3-51.7) % [place] % (Auto) (4.7-12.5) % Eos % (Auto) (0.7-5.8) Baso % (Auto) (0.1-1.2) % Neut # (Auto) (1.56-6.13) K/mm3 Lymph # (Auto) (1.18-3.74) K/mm3 [place] # (Auto) (0.24-0.36) K/mm3 Eos # (Auto) (0.04-0.36) K/mm3 Baso # (Auto) (0.01-0.08) K/mm3 Manual Slide Review PT (8.0-13.0) SECONDS INR Sodium (136-145) mEq/L Potassium (3.5-5.1) mEq/L Chloride (98-107) mEq/L Carbon Dioxide (21-32) mEq/L Anion Gap (5-15) BUN (7-18) mg/dL Creatinine (0.55-1.02) mg/dL Est Cr Clr Drug Dosing mL/min Estimated GFR (MDRD) (>60) mL/min BUN/Creatinine Ratio (14-18) Glucose (83-115) mg/dL POC Glucose 124 H 109 (83-110) mg/dL Calcium (8.5-10.1) mg/dL Magnesium (1.8-2.4) mg/dl C-Reactive Protein (<1.0) mg/dL Umberto Results Last 24 Hours: Microbiology 08/30/17 20:23 Gram Stain - Final Sputum - Expectorated Sputum Culture - Final NORMAL RESPIRATORY RAN 2 DAYS Med Orders - Current: Current Medications Acetaminophen (Tylenol) 650 mg PO Q6H PRN PRN Reason: Pain Last Admin: 09/03/17 15:08 Dose: 650 mg Albuterol/Ipratropium (Duoneb 3.0-0.5 Mg/3 Ml) 3 ml NEB Q6HRRT PRN PRN Reason: wheezing/SOB/cough Last Admin: 09/03/17 08:33 Dose: 3 ml Cholestyramine Resin (Prevalite Packet) 4 gm PO BID [facility] Last Admin: 09/03/17 08:42 Dose: 4 gm Enalapril Maleate (Vasotec) 20 mg PO BID [facility] Last Admin: 09/03/17 08:46 Dose: 20 mg Fenofibrate (Tricor) 145 mg PO DAILY [facility] Last Admin: 09/03/17 08:35 Dose: 145 mg Guaifenesin/Phenylephrine HCl (Robitussin Dm) 10 ml PO Q4H PRN PRN Reason: Cough Last Admin: 09/01/17 21:00 Dose: 5 ml Hydralazine HCl (Apresoline) 20 mg IVPUSH Q6H PRN PRN Reason: Hypertension Last Admin: 09/03/17 09:05 Dose: 20 mg Metronidazole 500 mg/ Premix 100 mls @ 100 mls/hr IV Q8H [facility] Last Admin: 09/03/17 16:38 Dose: 100 mls/hr Insulin Aspart (Novolog) 0 unit SUBCUT BID@0700,2100 [facility] PRN Reason: Protocol Last Admin: 09/03/17 06:37 Dose: Not Given Metoprolol Tartrate (Lopressor) 12.5 mg PO BID [facility] Last Admin: 09/03/17 08:45 Dose: 12.5 mg Multi-Ingred Cream/Lotion/Oil/Oint (Zinc Oxide) 0 gm TOP Q1H PRN PRN Reason: Diarrhea Ondansetron HCl (Zofran) 4 mg IVPUSH Q4H PRN PRN Reason: Nausea/Vomiting Last Admin: 09/03/17 10:13 Dose: 4 mg Diphenhyd/Lidocaine/ (Nystatin Mouthwash) 0 each PO QID PRN PRN Reason: Sore Throat Saccharomyces Boulardii (Florastor) 250 mg PO BID [facility] Last Admin: 09/03/17 08:32 Dose: 250 mg Sertraline HCl (Zoloft) 75 mg PO DAILY [facility] Last Admin: 09/03/17 08:35 Dose: 75 mg Simvastatin (Zocor) 20 mg PO BEDTIME [facility] Last Admin: 09/02/17 22:19 Dose: 20 mg Sodium Chloride (Saline Flush) 10 ml FLUSH ASDIRECTED PRN PRN Reason: Keep Vein Open Last Admin: 08/29/17 19:16 Dose: 10 ml Temazepam (Restoril) 15 mg PO BEDTIME PRN PRN Reason: Insomnia Last Admin: 09/01/17 21:03 Dose: 15 mg Vancomycin HCl (First-Vancomycin 50 Compounding Kit) 500 mg PO QID [facility] Last Admin: 09/03/17 16:26 Dose: 10 ml Witch Nikky (Tucks) 1 pad TOP TID PRN PRN Reason: perineal Last Admin: 08/31/17 13:58 Dose: 1 pad Discontinued Medications Enoxaparin Sodium (Lovenox) 30 mg SUBCUT DAILY [facility] Last Admin: 09/03/17 08:32 Dose: 30 mg Sodium Chloride (Normal Saline) 1,000 mls @ 999 mls/hr IV ONETIME ONE Stop: 08/29/17 19:37 Last Admin: 08/29/17 21:09 Dose: Not Given Sodium Chloride (Normal Saline) 500 mls @ 500 mls/hr IV .BOLUS ONE Stop: 08/29/17 19:40 Last Admin: 08/29/17 19:15 Dose: 500 mls/hr Sodium Chloride (Normal Saline) 1,000 mls @ 100 mls/hr IV ASDIRECTED [facility] Sodium Chloride (Normal Saline) 1,000 mls @ 150 mls/hr IV ASDIRECTED [facility] Stop: 08/30/17 05:00 Last Admin: 08/30/17 01:18 Dose: 150 mls/hr Sodium Chloride (Normal Saline) 1,000 mls @ 100 mls/hr IV ASDIRECTED [facility] Last Admin: 08/30/17 11:14 Dose: 100 mls/hr Metronidazole (Flagyl 500 Mg In Ns 100 Ml) Confirm Administered Dose 100 mls @ as directed .ROUTE .STK-MED ONE Stop: 08/30/17 17:39 Last Admin: 08/30/17 17:55 Dose: Not Given Sodium Chloride (Normal Saline) 1,000 mls @ 75 mls/hr IV ASDIRECTED [facility] Last Admin: 09/01/17 03:24 Dose: 75 mls/hr Ceftriaxone Sodium 2 gm/ (Sodium Chloride) 100 mls @ 200 mls/hr IV ONETIME ONE Stop: 08/30/17 19:29 Last Admin: 08/30/17 19:05 Dose: 200 mls/hr Ceftriaxone Sodium 1 gm/ (Dextrose/Water) 100 mls @ 200 mls/hr IV Q24H GAUDENCIO Stop: 09/01/17 21:30 Last Admin: 09/01/17 18:36 Dose: 200 mls/hr Insulin Aspart (Novolog) 0 unit SUBCUT BID [facility] PRN Reason: Protocol Last Admin: 08/30/17 08:24 Dose: Not Given Metoprolol Tartrate (Lopressor) 12.5 mg PO ONETIME ONE Stop: 08/30/17 14:16 Last Admin: 08/30/17 14:12 Dose: 12.5 mg Januvia 100mg Own (Med) 1 each PO DAILY [facility] Non-Formulary Medication (Acetaminophen) 1 tab PO Q6HR PRN PRN Reason: Pain (moderate 4-6) Non-Formulary Medication (Enalapril) 10 mg PO BID [facility] Non-Formulary Medication (Sitagliptin) 100 mg PO DAILY [facility] Non-Formulary Medication (Warfarin) 1 mg PO ASDIRECTED [facility] Oseltamivir Phosphate (Tamiflu) 30 mg PO BID [facility] Last Admin: 08/31/17 09:16 Dose: 30 mg Oseltamivir Phosphate (Tamiflu) 30 mg PO DAILY [facility] Stop: 09/02/17 12:00 Last Admin: 09/02/17 10:43 Dose: 30 mg Oseltamivir Phosphate (Tamiflu) 30 mg PO ONETIME ONE Stop: 09/03/17 09:46 Last Admin: 09/03/17 10:07 Dose: 30 mg Pneumococcal Polyvalent Vaccine (Pneumovax 23) 0.5 ml IM .ONCE ONE Stop: 09/01/17 09:06 Sertraline HCl (Zoloft) 50 mg PO DAILY [facility] Last Admin: 08/31/17 09:16 Dose: 50 mg Sertraline HCl (Zoloft) 25 mg PO ONETIME ONE Stop: 08/31/17 20:31 Last Admin: 08/31/17 21:34 Dose: 25 mg Temazepam (Restoril) 15 mg PO BEDTIME PRN PRN Reason: Insomnia Warfarin Sodium (Coumadin) 2 mg PO ASDIRECTED GAUDENCIO Warfarin Sodium (Coumadin) 2 mg PO SuTuWeThSa [facility] Last Admin: 09/01/17 18:51 Dose: 2 mg Warfarin Sodium (Coumadin) 1 mg PO MoFr [facility] Last Admin: 08/31/17 17:12 Dose: 1 mg - Exam Quality Assessment: Supplemental Oxygen, DVT Prophylaxis General: Alert, Oriented, Cooperative, No Acute Distress HEENT: Pupils Equal, Pupils Reactive, EOMI, Mucous Membr. Moist/[place] Neck: Supple, Trachea Midline, No JVD, No Thyromegaly Lungs: Clear to Auscultation, Normal Respiratory Effort Cardiovascular: Regular Rate, Regular Rhythm GI/Abdominal Exam: Normal Bowel Sounds, Soft, Non-Tender, No Organomegaly, No Distention, No Abnormal Bruit, No Mass, Pelvis Stable (Female) Exam: Deferred Back Exam: Normal Inspection, Decreased Range of Motion Extremities: Normal Inspection, Normal Range of Motion, Non-Tender, No Pedal Edema, Normal Capillary Refill Peripheral Pulses: 2+: Radial (L), Radial (R), Posterior Tibial (L), Posterior Tibial (R), Dorsalis Pedis (L), Dorsalis Pedis (R) Skin: Warm, Dry, Other (Very excoriated and erythematous groin - painful.) Neurological: No New Focal Deficit Psy/Mental Status: Alert, Normal Affect, Normal Mood - Problem List & Annotations (1) C. difficile diarrhea SNOMED Code(s): 4824768976302 Code(s): A04.72 - ENTEROCOLITIS D/T CLOSTRIDIUM DIFFICILE, NOT SPCF RECUR Status: Acute Priority: High Current Visit: Yes (2) Influenza A SNOMED Code(s): 181842789 Code(s): J10.1 - FLU DUE TO OTH IDENT INFLUENZA VIRUS W OTH RESP MANIFEST Status: Acute Priority: High Current Visit: Yes (3) Acute kidney injury SNOMED Code(s): 20826929 Code(s): N17.9 - ACUTE KIDNEY FAILURE, UNSPECIFIED Status: Acute Priority : High Current Visit: Yes (4) Anticoagulated on Coumadin SNOMED Code(s): 56172063 Code(s): Z51.81 - ENCOUNTER FOR THERAPEUTIC DRUG LEVEL MONITORING; Z79.01 - RUBBER OFF (CURRENT) USE OF ANTICOAGULANTS Status: Chronic Priority: Medium Current Visit: Yes (5) Fall SNOMED Code(s): 5673632 Code(s): W19.XXXA - UNSPECIFIED FALL, INITIAL ENCOUNTER Status: Acute Priority: High Current Visit: Yes Qualifiers: Encounter type: initial encounter Qualified Code(s): W19.XXXA - Unspecified fall, initial encounter (6) UTI (lower urinary tract infection) SNOMED Code(s): 7880387 Code(s): N39.0 - URINARY TRACT INFECTION, SITE NOT SPECIFIED Status: Acute Priority: High Current Visit: Yes (7) Rhabdomyolysis SNOMED Code(s): 565360529 Code(s): M62.82 - RHABDOMYOLYSIS Status: Resolved Priority: High Current Visit: Yes Qualifiers: Rhabdomyolysis type: non-traumatic Qualified Code(s): M62.82 - Rhabdomyolysis (8) Hypertension SNOMED Code(s): 26396536 Code(s): I10 - ESSENTIAL (PRIMARY) HYPERTENSION Status: Acute Priority: High Current Visit: Yes Qualifiers: Hypertension type: essential hypertension Qualified Code(s): I10 - Essential (primary) hypertension (9) Excoriation of buttock SNOMED Code(s): 578029120 Code(s): S30.810A - ABRASION OF LOWER BACK AND PELVIS, INITIAL ENCOUNTER Status: Acute Priority: High Current Visit: Yes Qualifiers: Encounter type: initial encounter Qualified Code(s): S30.810A - Abrasion of lower back and pelvis, initial encounter - Problem List Review Problem List Initiated/Reviewed/Updated: Yes - My Orders Last 24 Hours: My Active Orders 09/02/17 18:40 RT Incentive Spirometry [RC] Q2HWA 09/02/17 19:34 Up With Assistance [RC] ASDIRECTED - Plan Plan:: Impression: S/P fall without LOC Negative radiographic studies History of recent C Diff infection Query failed or incomplete treatment; persistent diarrhea-->improving Leukocytosis--> resolved Repeat Influenza A screen, positive UC with G negative rods, Klebsiella-->norman sensitive--> stop Rocephin . 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
[2017-09-03] MEDS ORDERED: Metoprolol Tartrate 25 MG Tab PO SCH ×2 (21:00)
[2017-09-03] MEDS: Simvastatin 20 MG Tab PO SCH (21:18)
[2017-09-04] MEDS: metroNIDAZOLE/Normal Saline 500 MG in Premix Bag 1 BAG IV SCH ×3 (02:21→16:47)
[2017-09-04] MEDS: Acetaminophen 325 MG Tab PO PRN ×2 (04:21→16:19)
[2017-09-04] MEDS: Insulin Aspart 100 Units/ML 3 ML Pen SUBCUT SCH ×2 (07:33→23:43)
[2017-09-04] MEDS: Ondansetron 4 MG/2 ML SDV IVPUSH PRN ×2 (08:50→16:16)
[2017-09-04] MEDS: hydrALAZINE 20 MG/ML SDV IVPUSH PRN ×2 (09:57→16:48)
[2017-09-04] MEDS: Fenofibrate Nanocrystallized 145 MG Tab PO SCH (10:00)
[2017-09-04] MEDS: Sertraline 25 MG Tab PO SCH (10:00)
[2017-09-04] MEDS: Metoprolol Tartrate 25 MG Tab PO SCH ×2 (10:00→22:38)
[2017-09-04] MEDS: Vancomycin 50 MG/ML 150ML Oral Solution Kit PO SCH ×4 (10:01→22:40)
[2017-09-04] MEDS: Cholestyramine/Aspartame Powder 4 GM Packet PO SCH ×2 (10:01→22:40)
[2017-09-04] MEDS: Saccharomyces Boulardii (Probiotic) 250 MG Cap PO SCH ×2 (10:01→22:37)
[2017-09-04] MEDS: Witch Hazel Medicated Pads 100/Jar TOP PRN (10:09)
--- NOTE | 2017-09-04 11:16 | CR ---
Chest: AP and lateral views of the chest were obtained. Comparison: Prior chest x-ray of 09/02/17. Heart size and mediastinum appear stable. Small bilateral pleural effusions are seen with mild bibasilar atelectasis. Findings are stable from previous exam. Bony structures are also stable. Impression: 1. Stable chest x-ray from previous study of 09/02/17. Nothing acute is seen. Diagnostic code #3
--- NOTE | 2017-09-04 12:48 | PCM.PN ---
- General Info Date of Service: 09/04/17 Functional Status: Reports: Pain Controlled - Review of Systems General: Reports: Weakness, Malaise HEENT: Reports: No Symptoms Pulmonary: Reports: No Symptoms Cardiovascular: Reports: No Symptoms Gastrointestinal: Reports: Diarrhea Genitourinary: Reports: No Symptoms Musculoskeletal: Reports: No Symptoms Skin: Reports: No Symptoms Neurological: Reports: No Symptoms Psychiatric: Reports: No Symptoms - Patient Data Vitals - Most Recent: Last Vital Signs Temp 36.7 C 09/04/17 12:07 Pulse 87 09/04/17 12:07 Resp 24 H 09/04/17 12:07 BP 135/70 09/04/17 12:07 Pulse Ox 91 L 09/04/17 12:07 Weight - Most Recent: 67.676 kg I&O - Last 24 Hours: Intake & Output 09/03/17 09/04/17 09/04/17 22:59 06:59 14:59 Intake Total 430 1100 0 Output Total 250 Balance 180 1100 0 Lab Results Last 24 Hours: Laboratory Results - last 24 hr 09/03/17 09/03/17 09/04/17 Range/Units 16:48 20:43 05:45 Sodium 145 (136-145) mEq/L Potassium 3.6 (3.5-5.1) mEq/L Chloride 111 H (98-107) mEq/L Carbon Dioxide 25 (21-32) mEq/L Anion Gap 12.6 (5-15) BUN 16 (7-18) mg/dL Creatinine 1.1 H (0.55-1.02) mg/dL Est Cr Clr Drug Dosing 24.90 mL/min Estimated GFR (MDRD) 47 (>60) mL/min BUN/Creatinine Ratio 14.5 (14-18) Glucose 116 H (83-115) mg/dL POC Glucose 109 122 H (83-110) mg/dL Calcium 8.4 L (8.5-10.1) mg/dL Magnesium 1.9 (1.8-2.4) mg/dl C-Reactive Protein 1.5 H* (<1.0) mg/dL 09/04/17 09/04/17 Range/Units 06:36 11:17 Sodium (136-145) mEq/L Potassium (3.5-5.1) mEq/L Chloride (98-107) mEq/L Carbon Dioxide (21-32) mEq/L Anion Gap (5-15) BUN (7-18) mg/dL Creatinine (0.55-1.02) mg/dL Est Cr Clr Drug Dosing mL/min Estimated GFR (MDRD) (>60) mL/min BUN/Creatinine Ratio (14-18) Glucose (83-115) mg/dL POC Glucose 107 121 H (83-110) mg/dL Calcium (8.5-10.1) mg/dL Magnesium (1.8-2.4) mg/dl C-Reactive Protein (<1.0) mg/dL Med Orders - Current: Current Medications Acetaminophen (Tylenol) 650 mg PO Q6H PRN PRN Reason: Pain Last Admin: 09/04/17 04:21 Dose: 650 mg Albuterol/Ipratropium (Duoneb 3.0-0.5 Mg/3 Ml) 3 ml NEB Q6HRRT PRN PRN Reason: wheezing/SOB/cough Last Admin: 09/03/17 08:33 Dose: 3 ml Cholestyramine Resin (Prevalite Packet) 4 gm PO BID [facility] Last Admin: 09/04/17 10:01 Dose: 4 gm Enalapril Maleate (Vasotec) 20 mg PO BID [facility] Last Admin: 09/04/17 10:01 Dose: 20 mg Fenofibrate (Tricor) 145 mg PO DAILY [facility] Last Admin: 09/04/17 10:00 Dose: 145 mg Guaifenesin/Phenylephrine HCl (Robitussin Dm) 10 ml PO Q4H PRN PRN Reason: Cough Last Admin: 09/01/17 21:00 Dose: 5 ml Hydralazine HCl (Apresoline) 20 mg IVPUSH Q6H PRN PRN Reason: Hypertension Last Admin: 09/04/17 09:57 Dose: 20 mg Metronidazole 500 mg/ Premix 100 mls @ 100 mls/hr IV Q8H [facility] Last Admin: 09/04/17 10:07 Dose: 100 mls/hr Insulin Aspart (Novolog) 0 unit SUBCUT BID@0700,2100 [facility] PRN Reason: Protocol Last Admin: 09/04/17 07:33 Dose: Not Given Metoprolol Tartrate (Lopressor) 12.5 mg PO Q12HR [facility] Last Admin: 09/04/17 10:00 Dose: 12.5 mg Multi-Ingred Cream/Lotion/Oil/Oint (Zinc Oxide) 0 gm TOP Q1H PRN PRN Reason: Diarrhea Ondansetron HCl (Zofran) 4 mg IVPUSH Q4H PRN PRN Reason: Nausea/Vomiting Last Admin: 09/04/17 08:50 Dose: 4 mg Diphenhyd/Lidocaine/ (Nystatin Mouthwash) 0 each PO QID PRN PRN Reason: Sore Throat Saccharomyces Boulardii (Florastor) 250 mg PO BID [facility] Last Admin: 09/04/17 10:01 Dose: 250 mg Sertraline HCl (Zoloft) 75 mg PO DAILY [facility] Last Admin: 09/04/17 10:00 Dose: 75 mg Simvastatin (Zocor) 20 mg PO BEDTIME [facility] Last Admin: 09/03/17 21:18 Dose: 20 mg Sodium Chloride (Saline Flush) 10 ml FLUSH ASDIRECTED PRN PRN Reason: Keep Vein Open Last Admin: 08/29/17 19:16 Dose: 10 ml Temazepam (Restoril) 15 mg PO BEDTIME PRN PRN Reason: Insomnia Last Admin: 09/01/17 21:03 Dose: 15 mg Vancomycin HCl (First-Vancomycin 50 Compounding Kit) 500 mg PO QID [facility] Last Admin: 09/04/17 10:01 Dose: 10 ml Vitamin A/Vitamin D (Vitamin A & D) 0 gm TOP Q2H PRN PRN Reason: Apply to excoriated skin Witch Nikky (Tucks) 1 pad TOP TID PRN PRN Reason: perineal Last Admin: 09/04/17 10:09 Dose: 1 pad Discontinued Medications Enoxaparin Sodium (Lovenox) 30 mg SUBCUT DAILY [facility] Last Admin: 09/03/17 08:32 Dose: 30 mg Sodium Chloride (Normal Saline) 1,000 mls @ 999 mls/hr IV ONETIME ONE Stop: 08/29/17 19:37 Last Admin: 08/29/17 21:09 Dose: Not Given Sodium Chloride (Normal Saline) 500 mls @ 500 mls/hr IV .BOLUS ONE Stop: 08/29/17 19:40 Last Admin: 08/29/17 19:15 Dose: 500 mls/hr Sodium Chloride (Normal Saline) 1,000 mls @ 100 mls/hr IV ASDIRECTED [facility] Sodium Chloride (Normal Saline) 1,000 mls @ 150 mls/hr IV ASDIRECTED [facility] Stop: 08/30/17 05:00 Last Admin: 08/30/17 01:18 Dose: 150 mls/hr Sodium Chloride (Normal Saline) 1,000 mls @ 100 mls/hr IV ASDIRECTED [facility] Last Admin: 08/30/17 11:14 Dose: 100 mls/hr Metronidazole (Flagyl 500 Mg In Ns 100 Ml) Confirm Administered Dose 100 mls @ as directed .ROUTE .STK-MED ONE Stop: 08/30/17 17:39 Last Admin: 08/30/17 17:55 Dose: Not Given Sodium Chloride (Normal Saline) 1,000 mls @ 75 mls/hr IV ASDIRECTED [facility] Last Admin: 09/01/17 03:24 Dose: 75 mls/hr Ceftriaxone Sodium 2 gm/ (Sodium Chloride) 100 mls @ 200 mls/hr IV ONETIME ONE Stop: 08/30/17 19:29 Last Admin: 08/30/17 19:05 Dose: 200 mls/hr Ceftriaxone Sodium 1 gm/ (Dextrose/Water) 100 mls @ 200 mls/hr IV Q24H [facility] Stop: 09/01/17 21:30 Last Admin: 09/01/17 18:36 Dose: 200 mls/hr Insulin Aspart (Novolog) 0 unit SUBCUT BID [facility] PRN Reason: Protocol Last Admin: 08/30/17 08:24 Dose: Not Given Metoprolol Tartrate (Lopressor) 12.5 mg PO BID [facility] Last Admin: 09/03/17 08:45 Dose: 12.5 mg Metoprolol Tartrate (Lopressor) 12.5 mg PO ONETIME ONE Stop: 08/30/17 14:16 Last Admin: 08/30/17 14:12 Dose: 12.5 mg Metoprolol Tartrate (Lopressor) 25 mg PO Q12HR [facility] Metoprolol Tartrate (Lopressor) 25 mg PO Q12HR [facility] Januvia 100mg Own (Med) 1 each PO DAILY [facility] Non-Formulary Medication (Acetaminophen) 1 tab PO Q6HR PRN PRN Reason: Pain (moderate 4-6) Non-Formulary Medication (Enalapril) 10 mg PO BID [facility] Non-Formulary Medication (Sitagliptin) 100 mg PO DAILY [facility] Non-Formulary Medication (Warfarin) 1 mg PO ASDIRECTED [facility] Oseltamivir Phosphate (Tamiflu) 30 mg PO BID [facility] Last Admin: 08/31/17 09:16 Dose: 30 mg Oseltamivir Phosphate (Tamiflu) 30 mg PO DAILY [facility] Stop: 09/02/17 12:00 Last Admin: 09/02/17 10:43 Dose: 30 mg Oseltamivir Phosphate (Tamiflu) 30 mg PO ONETIME ONE Stop: 09/03/17 09:46 Last Admin: 09/03/17 10:07 Dose: 30 mg Pneumococcal Polyvalent Vaccine (Pneumovax 23) 0.5 ml IM .ONCE ONE Stop: 09/01/17 09:06 Sertraline HCl (Zoloft) 50 mg PO DAILY [facility] Last Admin: 08/31/17 09:16 Dose: 50 mg Sertraline HCl (Zoloft) 25 mg PO ONETIME ONE Stop: 08/31/17 20:31 Last Admin: 08/31/17 21:34 Dose: 25 mg Temazepam (Restoril) 15 mg PO BEDTIME PRN PRN Reason: Insomnia Warfarin Sodium (Coumadin) 2 mg PO ASDIRECTED [facility] Warfarin Sodium (Coumadin) 2 mg PO SuTuWeThSa [facility] Last Admin: 09/01/17 18:51 Dose: 2 mg Warfarin Sodium (Coumadin) 1 mg PO MoFr [facility] Last Admin: 08/31/17 17:12 Dose: 1 mg - Exam Quality Assessment: DVT Prophylaxis General: Alert, Oriented, Cooperative, Mild Distress HEENT: Pupils Equal, Pupils Reactive, EOMI Neck: Supple, Trachea Midline, No JVD Lungs: Normal Respiratory Effort GI/Abdominal Exam: Normal Bowel Sounds, Soft, Non-Tender, No Organomegaly, No Distention (Female) Exam: Deferred Back Exam: Normal Inspection Extremities: Normal Inspection Skin: Warm Neurological: No New Focal Deficit Psy/Mental Status: Alert, Anxious - Problem List Review Problem List Initiated/Reviewed/Updated: Yes - My Orders Last 24 Hours: My Active Orders 09/04/17 10:32 Communication Order [RC] QSHIFT 09/05/17 05:00 BMP [BASIC METABOLIC PANEL,BMP] [CHEM] DAILY CRP [C-REACTIVE PROTEIN] [CHEM] DAILY MAGNESIUM [CHEM] DAILY 09/06/17 05:00 BMP [BASIC METABOLIC PANEL,BMP] [CHEM] DAILY CRP [C-REACTIVE PROTEIN] [CHEM] DAILY MAGNESIUM [CHEM] DAILY 09/06/17 06:00 INR,PT,PROTHROMBIN TIME [COAG] Routine 09/07/17 05:00 BMP [BASIC METABOLIC PANEL,BMP] [CHEM] DAILY CBC WITH AUTO DIFF [HEME] DAILY CRP [C-REACTIVE PROTEIN] [CHEM] DAILY MAGNESIUM [CHEM] DAILY 09/08/17 05:00 CBC WITH AUTO DIFF [HEME] DAILY 09/09/17 05:00 CBC WITH AUTO DIFF [HEME] DAILY 09/10/17 05:00 CBC WITH AUTO DIFF [HEME] DAILY - Plan Plan:: Impression: S/P fall without LOC Negative radiographic studies History of recent C Diff infection Query failed or incomplete treatment; persistent diarrhea-->improving Leukocytosis--> resolved Repeat Influenza A screen, positive UC with G negative rods, Klebsiella-->norman sensitive--> stop Rocephin . Elevated INR - continue to hold warfarin ?Aspiration vs atelectasis - nursing notes cough, [employer] swallow study neg; aspiration precautions -CXR: pneumonia versus atelectasis versus aspiration -> no infection symptoms , IS, monitor -F/U CXR Thursday HTN - acute on chronic -Home enalapril, BB, and PRN hydarlazine Chronic: GERD HTN - as above HLD Dementia Anxiety Diabetes mellitus type 2 CVA Plan: IVF Vanco/Flagyl/Tamiflu renal dose--> stop tamiflu Home meds UC/BC Daily Labns DVT/GI prophylaxis CSM/PT/OT--> likely discharge Thursday Consult PT for groin wound care LOS >96Hr due to need for continued IV antibiotics
[2017-09-04] MEDS: Acetaminophen/HYDROcodone 325-5 MG Tab PO PRN (18:58)
[2017-09-04] MEDS: Simvastatin 20 MG Tab PO SCH (22:37)
[2017-09-04] MEDS: guaiFENesin 600 MG Tab.ER PO SCH (22:40)
[2017-09-05] MEDS: metroNIDAZOLE/Normal Saline 500 MG in Premix Bag 1 BAG IV SCH ×3 (01:27→17:45)
[2017-09-05] MEDS: Insulin Aspart 100 Units/ML 3 ML Pen SUBCUT SCH ×2 (07:23→22:32)
[2017-09-05] MEDS: Ondansetron 4 MG/2 ML SDV IVPUSH PRN (08:07)
[2017-09-05] MEDS: Vancomycin 50 MG/ML 150ML Oral Solution Kit PO SCH ×4 (09:42→20:33)
[2017-09-05] MEDS: Saccharomyces Boulardii (Probiotic) 250 MG Cap PO SCH ×2 (09:43→20:38)
[2017-09-05] MEDS: Fenofibrate Nanocrystallized 145 MG Tab PO SCH (09:43)
[2017-09-05] MEDS: guaiFENesin 600 MG Tab.ER PO SCH ×2 (09:43→20:42)
[2017-09-05] MEDS: Cholestyramine/Aspartame Powder 4 GM Packet PO SCH ×3 (09:43→20:43)
[2017-09-05] MEDS: Metoprolol Tartrate 25 MG Tab PO SCH ×2 (09:43→20:40)
[2017-09-05] MEDS: Sertraline 25 MG Tab PO SCH (09:44)
[2017-09-05] MEDS: hydrALAZINE 20 MG/ML SDV IVPUSH PRN (11:56)
[2017-09-05] MEDS: Witch Hazel Medicated Pads 100/Jar TOP PRN (12:03)
[2017-09-05] MEDS: Acetaminophen/HYDROcodone 325-5 MG Tab PO PRN (12:32)
--- NOTE | 2017-09-05 14:45 | PCM.PN ---
- General Info Date of Service: 09/05/17 Functional Status: Reports: Urinating - Review of Systems General: Reports: Weakness HEENT: Reports: No Symptoms Pulmonary: Reports: No Symptoms Cardiovascular: Reports: No Symptoms Gastrointestinal: Reports: No Symptoms Genitourinary: Reports: No Symptoms Musculoskeletal: Reports: No Symptoms Skin: Reports: No Symptoms Neurological: Reports: No Symptoms Psychiatric: Reports: No Symptoms - Patient Data Vitals - Most Recent: Last Vital Signs Temp 36.5 C 09/05/17 11:15 Pulse 87 09/05/17 11:15 Resp 18 09/05/17 11:15 BP 162/94 H 09/05/17 11:15 Pulse Ox 93 L 09/05/17 11:15 Weight - Most Recent: 66.587 kg I&O - Last 24 Hours: Intake & Output 09/04/17 09/05/17 09/05/17 22:59 06:59 14:59 Intake Total 250 500 Balance 250 500 Lab Results Last 24 Hours: Laboratory Results - last 24 hr 09/04/17 09/04/17 09/05/17 Range/Units 16:52 23:12 06:28 PT (8.0-13.0) SECONDS INR Sodium (136-145) mEq/L Potassium (3.5-5.1) mEq/L Chloride (98-107) mEq/L Carbon Dioxide (21-32) mEq/L Anion Gap (5-15) BUN (7-18) mg/dL Creatinine (0.55-1.02) mg/dL Est Cr Clr Drug Dosing mL/min Estimated GFR (MDRD) (>60) mL/min BUN/Creatinine Ratio (14-18) Glucose (83-115) mg/dL POC Glucose 93 127 H 104 (83-110) mg/dL Calcium (8.5-10.1) mg/dL Magnesium (1.8-2.4) mg/dl C-Reactive Protein (<1.0) mg/dL 09/05/17 09/05/17 Range/Units 06:40 06:40 PT 50.5 H* (8.0-13.0) SECONDS INR 4.23 Sodium 147 H (136-145) mEq/L Potassium 3.9 (3.5-5.1) mEq/L Chloride 112 H (98-107) mEq/L Carbon Dioxide 27 (21-32) mEq/L Anion Gap 11.9 (5-15) BUN 17 (7-18) mg/dL Creatinine 1.0 (0.55-1.02) mg/dL Est Cr Clr Drug Dosing 27.39 mL/min Estimated GFR (MDRD) 52 (>60) mL/min BUN/Creatinine Ratio 17.0 (14-18) Glucose 121 H (83-115) mg/dL POC Glucose (83-110) mg/dL Calcium 8.6 (8.5-10.1) mg/dL Magnesium 2.0 (1.8-2.4) mg/dl C-Reactive Protein 0.6 (<1.0) mg/dL Med Orders - Current: Current Medications Acetaminophen (Tylenol) 650 mg PO Q6H PRN PRN Reason: Pain Last Admin: 09/04/17 16:19 Dose: 650 mg Hydrocodone Bitart/Acetaminophen (Vian 325-5 Mg) 1 tab PO Q6H PRN PRN Reason: Pain Last Admin: 09/05/17 12:32 Dose: 1 tab Albuterol/Ipratropium (Duoneb 3.0-0.5 Mg/3 Ml) 3 ml NEB Q6HRRT PRN PRN Reason: wheezing/SOB/cough Last Admin: 09/03/17 08:33 Dose: 3 ml Cholestyramine Resin (Prevalite Packet) 4 gm PO TID [facility] Enalapril Maleate (Vasotec) 20 mg PO BID [facility] Last Admin: 09/05/17 09:43 Dose: 20 mg Fenofibrate (Tricor) 145 mg PO DAILY [facility] Last Admin: 09/05/17 09:43 Dose: 145 mg Guaifenesin (Mucinex) 600 mg PO BID [facility] Last Admin: 09/05/17 09:43 Dose: 600 mg Guaifenesin/Phenylephrine HCl (Robitussin Dm) 10 ml PO Q4H PRN PRN Reason: Cough Last Admin: 09/01/17 21:00 Dose: 5 ml Hydralazine HCl (Apresoline) 20 mg IVPUSH Q6H PRN PRN Reason: Hypertension Last Admin: 09/05/17 11:56 Dose: 20 mg Metronidazole 500 mg/ Premix 100 mls @ 100 mls/hr IV Q8H [facility] Last Admin: 01/27/18 09:44 Dose: 100 mls/hr Insulin Aspart (Novolog) 0 unit SUBCUT BID@0700,2100 [facility] PRN Reason: Protocol Last Admin: 09/05/17 07:23 Dose: Not Given Metoprolol Tartrate (Lopressor) 12.5 mg PO Q12HR [facility] Last Admin: 09/05/17 09:43 Dose: 12.5 mg Multi-Ingred Cream/Lotion/Oil/Oint (Zinc Oxide) 0 gm TOP Q1H PRN PRN Reason: Diarrhea Ondansetron HCl (Zofran) 4 mg IVPUSH Q4H PRN PRN Reason: Nausea/Vomiting Last Admin: 09/05/17 08:07 Dose: 4 mg Diphenhyd/Lidocaine/ (Nystatin Mouthwash) 0 each PO QID PRN PRN Reason: Sore Throat Saccharomyces Boulardii (Florastor) 250 mg PO BID [facility] Last Admin: 09/05/17 09:43 Dose: 250 mg Sertraline HCl (Zoloft) 75 mg PO DAILY [facility] Last Admin: 09/05/17 09:44 Dose: 75 mg Simvastatin (Zocor) 20 mg PO BEDTIME [facility] Last Admin: 09/04/17 22:37 Dose: 20 mg Sodium Chloride (Saline Flush) 10 ml FLUSH ASDIRECTED PRN PRN Reason: Keep Vein Open Last Admin: 08/29/17 19:16 Dose: 10 ml Temazepam (Restoril) 15 mg PO BEDTIME PRN PRN Reason: Insomnia Last Admin: 09/01/17 21:03 Dose: 15 mg Vancomycin HCl (First-Vancomycin 50 Compounding Kit) 500 mg PO QID [facility] Last Admin: 09/05/17 12:32 Dose: 10 ml Vitamin A/Vitamin D (Vitamin A & D) 0 gm TOP Q2H PRN PRN Reason: Apply to excoriated skin Witch Nikky (Tucks) 1 pad TOP TID PRN PRN Reason: perineal Last Admin: 09/05/17 12:03 Dose: 1 pad Discontinued Medications Cholestyramine Resin (Prevalite Packet) 4 gm PO BID [facility] Last Admin: 09/05/17 09:43 Dose: 4 gm Enoxaparin Sodium (Lovenox) 30 mg SUBCUT DAILY [facility] Last Admin: 09/03/17 08:32 Dose: 30 mg Sodium Chloride (Normal Saline) 1,000 mls @ 999 mls/hr IV ONETIME ONE Stop: 08/29/17 19:37 Last Admin: 08/29/17 21:09 Dose: Not Given Sodium Chloride (Normal Saline) 500 mls @ 500 mls/hr IV .BOLUS ONE Stop: 08/29/17 19:40 Last Admin: 08/29/17 19:15 Dose: 500 mls/hr Sodium Chloride (Normal Saline) 1,000 mls @ 100 mls/hr IV ASDIRECTED [facility] Sodium Chloride (Normal Saline) 1,000 mls @ 150 mls/hr IV ASDIRECTED [facility] Stop: 08/30/17 05:00 Last Admin: 08/30/17 01:18 Dose: 150 mls/hr Sodium Chloride (Normal Saline) 1,000 mls @ 100 mls/hr IV ASDIRECTED [facility] Last Admin: 08/30/17 11:14 Dose: 100 mls/hr Metronidazole (Flagyl 500 Mg In Ns 100 Ml) Confirm Administered Dose 100 mls @ as directed .ROUTE .STK-MED ONE Stop: 08/30/17 17:39 Last Admin: 08/30/17 17:55 Dose: Not Given Sodium Chloride (Normal Saline) 1,000 mls @ 75 mls/hr IV ASDIRECTED [facility] Last Admin: 09/01/17 03:24 Dose: 75 mls/hr Ceftriaxone Sodium 2 gm/ (Sodium Chloride) 100 mls @ 200 mls/hr IV ONETIME ONE Stop: 08/30/17 19:29 Last Admin: 08/30/17 19:05 Dose: 200 mls/hr Ceftriaxone Sodium 1 gm/ (Dextrose/Water) 100 mls @ 200 mls/hr IV Q24H [facility] Stop: 09/01/17 21:30 Last Admin: 09/01/17 18:36 Dose: 200 mls/hr Insulin Aspart (Novolog) 0 unit SUBCUT BID [facility] PRN Reason: Protocol Last Admin: 08/30/17 08:24 Dose: Not Given Metoprolol Tartrate (Lopressor) 12.5 mg PO BID [facility] Last Admin: 09/03/17 08:45 Dose: 12.5 mg Metoprolol Tartrate (Lopressor) 12.5 mg PO ONETIME ONE Stop: 08/30/17 14:16 Last Admin: 08/30/17 14:12 Dose: 12.5 mg Metoprolol Tartrate (Lopressor) 25 mg PO Q12HR [facility] Metoprolol Tartrate (Lopressor) 25 mg PO Q12HR [facility] Januvia 100mg Own (Med) 1 each PO DAILY [facility] Non-Formulary Medication (Acetaminophen) 1 tab PO Q6HR PRN PRN Reason: Pain (moderate 4-6) Non-Formulary Medication (Enalapril) 10 mg PO BID [facility] Non-Formulary Medication (Sitagliptin) 100 mg PO DAILY [facility] Non-Formulary Medication (Warfarin) 1 mg PO ASDIRECTED [facility] Oseltamivir Phosphate (Tamiflu) 30 mg PO BID [facility] Last Admin: 08/31/17 09:16 Dose: 30 mg Oseltamivir Phosphate (Tamiflu) 30 mg PO DAILY [facility] Stop: 09/02/17 12:00 Last Admin: 09/02/17 10:43 Dose: 30 mg Oseltamivir Phosphate (Tamiflu) 30 mg PO ONETIME ONE Stop: 09/03/17 09:46 Last Admin: 09/03/17 10:07 Dose: 30 mg Pneumococcal Polyvalent Vaccine (Pneumovax 23) 0.5 ml IM .ONCE ONE Stop: 09/01/17 09:06 Sertraline HCl (Zoloft) 50 mg PO DAILY [facility] Last Admin: 08/31/17 09:16 Dose: 50 mg Sertraline HCl (Zoloft) 25 mg PO ONETIME ONE Stop: 08/31/17 20:31 Last Admin: 08/31/17 21:34 Dose: 25 mg Temazepam (Restoril) 15 mg PO BEDTIME PRN PRN Reason: Insomnia Warfarin Sodium (Coumadin) 2 mg PO ASDIRECTED [facility] Warfarin Sodium (Coumadin) 2 mg PO SuTuWeThSa [facility] Last Admin: 09/01/17 18:51 Dose: 2 mg Warfarin Sodium (Coumadin) 1 mg PO MoFr [facility] Last Admin: 08/31/17 17:12 Dose: 1 mg - Exam Quality Assessment: Supplemental Oxygen, DVT Prophylaxis General: Alert, Oriented, No Acute Distress HEENT: Pupils Equal, Pupils Reactive, EOMI Neck: Trachea Midline, No JVD Lungs: Normal Respiratory Effort Cardiovascular: Regular Rate, Regular Rhythm GI/Abdominal Exam: Normal Bowel Sounds, Soft, Non-Tender, No Organomegaly, No Distention (Female) Exam: Deferred Back Exam: Normal Inspection Extremities: Normal Inspection Skin: Warm Neurological: No New Focal Deficit Psy/Mental Status: Alert - Problem List Review Problem List Initiated/Reviewed/Updated: Yes - My Orders Last 24 Hours: My Active Orders 09/04/17 18:05 Rectal Tube Insertion [OM.PC] Routine 09/04/17 18:06 Rectal Tube Managment [Gastrointestinal Tube Mgmt] [RC] ASDIRECTED 09/04/17 18:39 Acetaminophen/HYDROcodone [Vian 325-5 MG] 1 tab PO Q6H PRN 09/05/17 15:00 Cholestyramine/Aspartame [Prevalite Packet] 4 gm PO TID 09/06/17 05:00 BMP [BASIC METABOLIC PANEL,BMP] [CHEM] DAILY CRP [C-REACTIVE PROTEIN] [CHEM] DAILY MAGNESIUM [CHEM] DAILY 09/06/17 06:00 INR,PT,PROTHROMBIN TIME [COAG] Routine 09/07/17 05:00 BMP [BASIC METABOLIC PANEL,BMP] [CHEM] DAILY CBC WITH AUTO DIFF [HEME] DAILY CRP [C-REACTIVE PROTEIN] [CHEM] DAILY MAGNESIUM [CHEM] DAILY 09/08/17 05:00 CBC WITH AUTO DIFF [HEME] DAILY 09/09/17 05:00 CBC WITH AUTO DIFF [HEME] DAILY 09/10/17 05:00 CBC WITH AUTO DIFF [HEME] DAILY - Plan Plan:: Impression: S/P fall without LOC Negative radiographic studies History of recent C Diff infection Query failed or incomplete treatment; persistent diarrhea-->improving Leukocytosis--> resolved Repeat Influenza A screen, positive UC with G negative rods, Klebsiella-->norman sensitive--> stop Rocephin . Elevated INR - continue to hold warfarin Aspiration precautions -CXR: pneumonia versus atelectasis versus aspiration -> no infection symptoms , IS, monitor -F/U CXR Thursday HTN - acute on chronic -Home enalapril, BB, and PRN hydarlazine Chronic: GERD HTN - as above HLD Dementia Anxiety Diabetes mellitus type 2 CVA Plan: IVF Vanco/Flagyl/Tamiflu renal dose--> stop tamiflu Home meds UC/BC Daily Labns DVT/GI prophylaxis CSM/PT/OT--> likely discharge Thursday Consult PT for groin wound care LOS >96Hr due to need for continued IV antibiotics
[2017-09-05] MEDS: Simvastatin 20 MG Tab PO SCH (20:45)
[2017-09-06] MEDS: metroNIDAZOLE/Normal Saline 500 MG in Premix Bag 1 BAG IV SCH ×3 (01:07→16:29)
[2017-09-06] MEDS: hydrALAZINE 20 MG/ML SDV IVPUSH PRN (02:43)
[2017-09-06] MEDS: Albuterol/Ipratropium 3.0-0.5 MG/3 ML Neb Soln NEB PRN ×3 (02:59→23:43)
[2017-09-06] MEDS: guaiFENesin/Dextromethorphan 100-10 MG/5 ML Soln 5 ML Cup PO PRN ×2 (03:08→10:14)
[2017-09-06] MEDS: Insulin Aspart 100 Units/ML 3 ML Pen SUBCUT SCH ×2 (07:06→21:11)
--- NOTE | 2017-09-06 09:41 | PCM.PN ---
- General Info Date of Service: 09/06/17 Subjective Update: Discussed with patient's daughterDelfina the current state of her mother's C Diff. This is her third treatment, the most recent was a diagnosis made at [facility]. She was treated for 6 days of prescribed ATB. Thus the patient' s second occurrence was incompletely treated. She has started to responded to therapy which includes Questran. The daughter stated that if she does not respond after the appropriate length of therapy, that consideration of comfort care or hospice will be discussed. Additionally she stated that her mother has longstanding depression. Functional Status: Reports: Urinating - Review of Systems General: Reports: Weakness HEENT: Reports: No Symptoms Pulmonary: Reports: No Symptoms Cardiovascular: Reports: No Symptoms Gastrointestinal: Reports: Diarrhea (decreased) Genitourinary: Reports: No Symptoms Musculoskeletal: Reports: No Symptoms Skin: Reports: No Symptoms Neurological: Reports: No Symptoms Psychiatric: Reports: No Symptoms - Patient Data Vitals - Most Recent: Last Vital Signs Temp 36.7 C 09/06/17 05:24 Pulse 122 H 09/06/17 08:06 Resp 20 09/06/17 08:06 BP 114/76 09/06/17 08:06 Pulse Ox 93 L 09/06/17 08:06 Weight - Most Recent: 66.996 kg I&O - Last 24 Hours: Intake & Output 09/05/17 09/06/17 09/06/17 22:59 06:59 14:59 Intake Total 800 550 Output Total 100 Balance 800 450 Lab Results Last 24 Hours: Laboratory Results - last 24 hr 09/05/17 09/06/17 09/06/17 Range/Units 22:06 06:41 06:43 PT (8.0-13.0) SECONDS INR Sodium 146 H (136-145) mEq/L Potassium 3.5 (3.5-5.1) mEq/L Chloride 112 H (98-107) mEq/L Carbon Dioxide 25 (21-32) mEq/L Anion Gap 12.5 (5-15) BUN 16 (7-18) mg/dL Creatinine 0.9 (0.55-1.02) mg/dL Est Cr Clr Drug Dosing 30.44 mL/min Estimated GFR (MDRD) 59 (>60) mL/min BUN/Creatinine Ratio 17.8 (14-18) Glucose 128 H (83-115) mg/dL POC Glucose 140 H 118 H (83-110) mg/dL Calcium 8.5 (8.5-10.1) mg/dL Magnesium 1.9 (1.8-2.4) mg/dl C-Reactive Protein < 0.2 (<1.0) mg/dL 09/06/17 Range/Units 06:43 PT 56.0 H* (8.0-13.0) SECONDS INR 4.66 Sodium (136-145) mEq/L Potassium (3.5-5.1) mEq/L Chloride (98-107) mEq/L Carbon Dioxide (21-32) mEq/L Anion Gap (5-15) BUN (7-18) mg/dL Creatinine (0.55-1.02) mg/dL Est Cr Clr Drug Dosing mL/min Estimated GFR (MDRD) (>60) mL/min BUN/Creatinine Ratio (14-18) Glucose (83-115) mg/dL POC Glucose (83-110) mg/dL Calcium (8.5-10.1) mg/dL Magnesium (1.8-2.4) mg/dl C-Reactive Protein (<1.0) mg/dL Med Orders - Current: Current Medications Acetaminophen (Tylenol) 650 mg PO Q6H PRN PRN Reason: Pain Last Admin: 09/04/17 16:19 Dose: 650 mg Hydrocodone Bitart/Acetaminophen ([place] 325-5 Mg) 1 tab PO Q6H PRN PRN Reason: Pain Last Admin: 09/05/17 12:32 Dose: 1 tab Albuterol/Ipratropium (Duoneb 3.0-0.5 Mg/3 Ml) 3 ml NEB Q6HRRT PRN PRN Reason: wheezing/SOB/cough Last Admin: 09/06/17 09:35 Dose: 3 ml Cholestyramine Resin (Prevalite Packet) 4 gm PO TID [facility] Last Admin: 09/05/17 20:43 Dose: 4 gm Enalapril Maleate (Vasotec) 20 mg PO BID [facility] Last Admin: 09/05/17 20:44 Dose: 20 mg Fenofibrate (Tricor) 145 mg PO DAILY [facility] Last Admin: 09/05/17 09:43 Dose: 145 mg Guaifenesin (Mucinex) 600 mg PO BID [facility] Last Admin: 09/05/17 20:42 Dose: 600 mg Guaifenesin/Phenylephrine HCl (Robitussin Dm) 10 ml PO Q4H PRN PRN Reason: Cough Last Admin: 09/06/17 03:08 Dose: 10 ml Hydralazine HCl (Apresoline) 20 mg IVPUSH Q6H PRN PRN Reason: Hypertension Last Admin: 09/06/17 02:43 Dose: 20 mg Metronidazole 500 mg/ Premix 100 mls @ 100 mls/hr IV Q8H [facility] Last Admin: 09/06/17 01:07 Dose: 100 mls/hr Insulin Aspart (Novolog) 0 unit SUBCUT BID@0700,2100 [facility] PRN Reason: Protocol Last Admin: 09/06/17 07:06 Dose: Not Given Metoprolol Tartrate (Lopressor) 12.5 mg PO Q12HR [facility] Last Admin: 09/05/17 20:40 Dose: 12.5 mg Multi-Ingred Cream/Lotion/Oil/Oint (Zinc Oxide) 0 gm TOP Q1H PRN PRN Reason: Diarrhea Ondansetron HCl (Zofran) 4 mg IVPUSH Q4H PRN PRN Reason: Nausea/Vomiting Last Admin: 09/05/17 08:07 Dose: 4 mg Diphenhyd/Lidocaine/ (Nystatin Mouthwash) 0 each PO QID PRN PRN Reason: Sore Throat Saccharomyces Boulardii (Florastor) 250 mg PO BID [facility] Last Admin: 09/05/17 20:38 Dose: 250 mg Sertraline HCl (Zoloft) 75 mg PO DAILY [facility] Last Admin: 09/05/17 09:44 Dose: 75 mg Simvastatin (Zocor) 20 mg PO BEDTIME [facility] Last Admin: 09/05/17 20:45 Dose: 20 mg Sodium Chloride (Saline Flush) 10 ml FLUSH ASDIRECTED PRN PRN Reason: Keep Vein Open Last Admin: 08/29/17 19:16 Dose: 10 ml Temazepam (Restoril) 15 mg PO BEDTIME PRN PRN Reason: Insomnia Last Admin: 09/01/17 21:03 Dose: 15 mg Vancomycin HCl (First-Vancomycin 50 Compounding Kit) 500 mg PO QID [facility] Last Admin: 09/05/17 20:33 Dose: 10 ml Vitamin A/Vitamin D (Vitamin A & D) 0 gm TOP Q2H PRN PRN Reason: Apply to excoriated skin Witwilbur Nikky (Tucks) 1 pad TOP TID PRN PRN Reason: perineal Last Admin: 09/05/17 12:03 Dose: 1 pad Discontinued Medications Cholestyramine Resin (Prevalite Packet) 4 gm PO BID [facility] Last Admin: 09/05/17 09:43 Dose: 4 gm Enoxaparin Sodium (Lovenox) 30 mg SUBCUT DAILY [facility] Last Admin: 09/03/17 08:32 Dose: 30 mg Sodium Chloride (Normal Saline) 1,000 mls @ 999 mls/hr IV ONETIME ONE Stop: 08/29/17 19:37 Last Admin: 08/29/17 21:09 Dose: Not Given Sodium Chloride (Normal Saline) 500 mls @ 500 mls/hr IV .BOLUS ONE Stop: 08/29/17 19:40 Last Admin: 08/29/17 19:15 Dose: 500 mls/hr Sodium Chloride (Normal Saline) 1,000 mls @ 100 mls/hr IV ASDIRECTED [facility] Sodium Chloride (Normal Saline) 1,000 mls @ 150 mls/hr IV ASDIRECTED [facility] Stop: 08/30/17 05:00 Last Admin: 08/30/17 01:18 Dose: 150 mls/hr Sodium Chloride (Normal Saline) 1,000 mls @ 100 mls/hr IV ASDIRECTED [facility] Last Admin: 08/30/17 11:14 Dose: 100 mls/hr Metronidazole (Flagyl 500 Mg In Ns 100 Ml) Confirm Administered Dose 100 mls @ as directed .ROUTE .STK-MED ONE Stop: 08/30/17 17:39 Last Admin: 08/30/17 17:55 Dose: Not Given Sodium Chloride (Normal Saline) 1,000 mls @ 75 mls/hr IV ASDIRECTED [facility] Last Admin: 09/01/17 03:24 Dose: 75 mls/hr Ceftriaxone Sodium 2 gm/ (Sodium Chloride) 100 mls @ 200 mls/hr IV ONETIME ONE Stop: 08/30/17 19:29 Last Admin: 08/30/17 19:05 Dose: 200 mls/hr Ceftriaxone Sodium 1 gm/ (Dextrose/Water) 100 mls @ 200 mls/hr IV Q24H [facility] Stop: 09/01/17 21:30 Last Admin: 09/01/17 18:36 Dose: 200 mls/hr Insulin Aspart (Novolog) 0 unit SUBCUT BID [facility] PRN Reason: Protocol Last Admin: 08/30/17 08:24 Dose: Not Given Metoprolol Tartrate (Lopressor) 12.5 mg PO BID [facility] Last Admin: 09/03/17 08:45 Dose: 12.5 mg Metoprolol Tartrate (Lopressor) 12.5 mg PO ONETIME ONE Stop: 08/30/17 14:16 Last Admin: 08/30/17 14:12 Dose: 12.5 mg Metoprolol Tartrate (Lopressor) 25 mg PO Q12HR [facility] Metoprolol Tartrate (Lopressor) 25 mg PO Q12HR [facility] Januvia 100mg Own (Med) 1 each PO DAILY [facility] Non-Formulary Medication (Acetaminophen) 1 tab PO Q6HR PRN PRN Reason: Pain (moderate 4-6) Non-Formulary Medication (Enalapril) 10 mg PO BID [facility] Non-Formulary Medication (Sitagliptin) 100 mg PO DAILY [facility] Non-Formulary Medication (Warfarin) 1 mg PO ASDIRECTED [facility] Oseltamivir Phosphate (Tamiflu) 30 mg PO BID [facility] Last Admin: 08/31/17 09:16 Dose: 30 mg Oseltamivir Phosphate (Tamiflu) 30 mg PO DAILY [facility] Stop: 09/02/17 12:00 Last Admin: 09/02/17 10:43 Dose: 30 mg Oseltamivir Phosphate (Tamiflu) 30 mg PO ONETIME ONE Stop: 09/03/17 09:46 Last Admin: 09/03/17 10:07 Dose: 30 mg Pneumococcal Polyvalent Vaccine (Pneumovax 23) 0.5 ml IM .ONCE ONE Stop: 09/01/17 09:06 Sertraline HCl (Zoloft) 50 mg PO DAILY [facility] Last Admin: 08/31/17 09:16 Dose: 50 mg Sertraline HCl (Zoloft) 25 mg PO ONETIME ONE Stop: 08/31/17 20:31 Last Admin: 08/31/17 21:34 Dose: 25 mg Temazepam (Restoril) 15 mg PO BEDTIME PRN PRN Reason: Insomnia Warfarin Sodium (Coumadin) 2 mg PO ASDIRECTED [facility] Warfarin Sodium (Coumadin) 2 mg PO SuTuWeThSa [facility] Last Admin: 09/01/17 18:51 Dose: 2 mg Warfarin Sodium (Coumadin) 1 mg PO MoFr [facility] Last Admin: 08/31/17 17:12 Dose: 1 mg - Exam Quality Assessment: Supplemental Oxygen, DVT Prophylaxis General: Alert, Oriented, Cooperative, No Acute Distress HEENT: Pupils Equal, Pupils Reactive, EOMI Neck: Trachea Midline, No JVD Lungs: Normal Respiratory Effort, Decreased Breath Sounds Cardiovascular: Regular Rate, Regular Rhythm GI/Abdominal Exam: Normal Bowel Sounds, Soft, Non-Tender, No Organomegaly, No Distention (Female) Exam: Deferred Back Exam: Normal Inspection Extremities: Normal Inspection Skin: Warm Neurological: No New Focal Deficit Psy/Mental Status: Alert - Problem List Review Problem List Initiated/Reviewed/Updated: Yes - My Orders Last 24 Hours: My Active Orders 09/05/17 15:00 Cholestyramine/Aspartame [Prevalite Packet] 4 gm PO TID 09/05/17 20:47 Admission Status [Patient Status] [ADT] Routine 09/07/17 05:00 BMP [BASIC METABOLIC PANEL,BMP] [CHEM] DAILY CBC WITH AUTO DIFF [HEME] DAILY CRP [C-REACTIVE PROTEIN] [CHEM] DAILY MAGNESIUM [CHEM] DAILY 09/08/17 05:00 CBC WITH AUTO DIFF [HEME] DAILY 09/09/17 05:00 CBC WITH AUTO DIFF [HEME] DAILY 09/10/17 05:00 CBC WITH AUTO DIFF [HEME] DAILY - Plan Plan:: Impression: S/P fall without LOC Negative radiographic studies History of recent C Diff infection Query failed or incomplete treatment; persistent diarrhea-->improving Leukocytosis--> resolved Repeat Influenza A screen, positive UC with G negative rods, Klebsiella-->norman sensitive--> stop Rocephin . Elevated INR - continue to hold warfarin Aspiration precautions -CXR: pneumonia versus atelectasis versus aspiration -> no infection symptoms , IS, monitor -F/U CXR Thursday HTN - acute on chronic -Home enalapril, BB, and PRN hydarlazine Chronic: GERD HTN - as above HLD Dementia Anxiety Diabetes mellitus type 2 CVA Plan: IVF Vanco/Flagyl/Tamiflu renal dose--> stop tamiflu Home meds UC/BC Daily Labns DVT/GI prophylaxis CSM/PT/OT--> likely discharge Thursday Consult PT for groin wound care LOS >96Hr due to need for continued IV antibiotics
[2017-09-06] MEDS: Metoprolol Tartrate 25 MG Tab PO SCH ×2 (09:56→21:10)
[2017-09-06] MEDS: Saccharomyces Boulardii (Probiotic) 250 MG Cap PO SCH ×2 (09:56→21:09)
[2017-09-06] MEDS: Cholestyramine/Aspartame Powder 4 GM Packet PO SCH ×3 (09:56→23:50)
[2017-09-06] MEDS: Fenofibrate Nanocrystallized 145 MG Tab PO SCH (09:56)
[2017-09-06] MEDS: Vancomycin 50 MG/ML 150ML Oral Solution Kit PO SCH ×4 (09:56→21:11)
[2017-09-06] MEDS: guaiFENesin 600 MG Tab.ER PO SCH ×2 (09:57→21:09)
[2017-09-06] MEDS: Sertraline 25 MG Tab PO SCH (09:57)
[2017-09-06] MEDS: Acetaminophen/HYDROcodone 325-5 MG Tab PO PRN ×2 (10:14→23:35)
[2017-09-06] MEDS: Witch Hazel Medicated Pads 100/Jar TOP PRN (10:20)
--- NOTE | 2017-09-06 14:42 | CR ---
Chest: 2 views of the chest were obtained. Comparison: Prior chest x-ray of 09/04/17. Small left-sided pleural effusion remains. Probable minimal right sided pleural effusion is seen. Better aeration of the right lung base from prior study is seen. Minimal atelectasis remains within the left base. New area of minimal atelectasis within the right upper lung is seen. Central lung markings are increased which appear stable. Impression: 1. Improved density within right lung base. 2. Slight area of new atelectasis noted within the upper right lung. 3. Other stable findings as noted above. Diagnostic code #3
[2017-09-06] MEDS: Simvastatin 20 MG Tab PO SCH (21:10)
[2017-09-06] MEDS: Temazepam 15 MG Cap PO PRN (23:35)
[2017-09-07] MEDS: hydrALAZINE 20 MG/ML SDV IVPUSH PRN ×3 (00:23→18:59)
[2017-09-07] MEDS: metroNIDAZOLE/Normal Saline 500 MG in Premix Bag 1 BAG IV SCH ×2 (01:22→08:59)
[2017-09-07] MEDS ORDERED: Phytonadione ORAL 2.5mg/2.5ml Soln Simple Syrup U/D PO ONE (07:20)
[2017-09-07] MEDS ORDERED: Iopamidol 755 Mg/ML 100 ML Bottle IVPUSH ONE (08:17)
[2017-09-07] MEDS ORDERED: Sodium Chloride 0.9% 10 ML Syringe FLUSH PRN (08:17)
[2017-09-07] MEDS ORDERED: Sodium Chloride 0.9% 100 ML IV SCH (08:30)
[2017-09-07] MEDS: Insulin Aspart 100 Units/ML 3 ML Pen SUBCUT SCH ×2 (08:36→22:35)
[2017-09-07] MEDS: Fenofibrate Nanocrystallized 145 MG Tab PO SCH (08:39)
[2017-09-07] MEDS: Sertraline 25 MG Tab PO SCH (08:40)
[2017-09-07] MEDS: Metoprolol Tartrate 25 MG Tab PO SCH ×2 (08:40→20:56)
[2017-09-07] MEDS: guaiFENesin 600 MG Tab.ER PO SCH ×2 (08:41→20:59)
[2017-09-07] MEDS: Saccharomyces Boulardii (Probiotic) 250 MG Cap PO SCH (08:41)
[2017-09-07] MEDS: Ondansetron 4 MG/2 ML SDV IVPUSH PRN (08:48)
[2017-09-07] MEDS: Vancomycin 50 MG/ML 150ML Oral Solution Kit PO SCH ×4 (08:53→21:07)
[2017-09-07] MEDS: Cholestyramine/Aspartame Powder 4 GM Packet PO SCH (08:58)
--- NOTE | 2017-09-07 10:48 | CT ---
Head CT Technique: Multiple axial sections through the brain were obtained. Intravenous contrast was not utilized. Comparison: Prior head CT exam of 08/29/17. Findings: Ventricles along with basal cisterns and sulci over the convexities are mildly prominent. Old infarct is again seen within the left occipital lobe. Diminished density is noted within the periventricular and subcortical white matter compatible with small vessel ischemic demyelination change. Several old lacunar infarcts are again noted within the basal ganglia. No other abnormal parenchymal densities are appreciated. No evidence of intracranial hemorrhage. No midline shift or mass effect is seen. Atherosclerotic calcification is seen within the vertebral vessels and basilar artery as well as within the carotid siphon. Bone window settings were reviewed which show no acute calvarial abnormality. Visualized sinuses are clear. Impression: 1. Senescent change as noted above. No acute intracranial abnormality is appreciated. No significant change is seen from previous head CT exam. Diagnostic code #2
--- NOTE | 2017-09-07 16:36 | PCM.PN ---
- General Info Date of Service: 09/07/17 Admission Dx/Problem (Free Text): UTI, Influenza Subjective Update: Follow Up Functional Status: Reports: Pain Controlled, Tolerating Diet, Ambulating, Urinating. Denies: New Symptoms - Review of Systems General: Denies: Fever, Weakness, Fatigue, Malaise, Chills HEENT: Reports: No Symptoms Pulmonary: Denies: Shortness of Breath Cardiovascular: Denies: Chest Pain Gastrointestinal: Reports: Diarrhea. Denies: Abdominal Pain, Nausea, Vomiting Genitourinary: Reports: No Symptoms Musculoskeletal: Reports: No Symptoms Skin: Reports: Rash, Other (erythema and excoriation in the groin, vaginal and korin-anal/rectal) Neurological: Reports: Difficulty Walking, Gait Disturbance. Denies: Confusion , Weakness Psychiatric: Denies: No Symptoms, Depression, Anxiety, Agitation, Hallucinations Systems Review Comment:: No overnight issues. Patient stools seems to be less watery. Her frequency has improved as well per head nurse Celestina. She is afebrile without leukocytosis. - Patient Data Vitals - Most Recent: Last Vital Signs Temp 36.2 C 09/07/17 16:14 Pulse 80 09/07/17 16:14 Resp 20 09/07/17 16:14 BP 180/89 H 09/07/17 16:00 Pulse Ox 97 09/07/17 16:14 Weight - Most Recent: 66.905 kg I&O - Last 24 Hours: Intake & Output 09/07/17 09/07/17 09/07/17 06:59 14:59 22:59 Intake Total 800 120 Output Total 2 Balance 798 120 Lab Results Last 24 Hours: Laboratory Results - last 24 hr 09/06/17 09/07/17 09/07/17 Range/Units 21:06 08:31 14:48 WBC 8.68 (3.98-10.04) K/mm3 RBC 4.56 (3.98-5.22) M/mm3 Hgb 12.6 (11.2-15.7) gm/L Hct 39.7 (34.1-44.9) % MCV 87.1 (79.4-94.8) fl MCH 27.6 (25.6-32.2) pg MCHC 31.7 L (32.2-35.5) g/dl RDW Std Deviation 44.3 (36.4-46.3) fL Plt Count 391 H (182-369) K/mm3 MPV 9.3 L (9.4-12.3) fl Neut % (Auto) 75.7 H (34.0-71.1) % Lymph % (Auto) 8.2 L (19.3-51.7) % Door % (Auto) 10.6 (4.7-12.5) % Eos % (Auto) 4.3 (0.7-5.8) Baso % (Auto) 0.3 (0.1-1.2) % Neut # (Auto) 6.57 H (1.56-6.13) K/mm3 Lymph # (Auto) 0.71 L (1.18-3.74) K/mm3 Door # (Auto) 0.92 H (0.24-0.36) K/mm3 Eos # (Auto) 0.37 H (0.04-0.36) K/mm3 Baso # (Auto) 0.03 (0.01-0.08) K/mm3 Manual Slide Review Normal smear PT (8.0-13.0) SECONDS INR Sodium (136-145) mEq/L Potassium (3.5-5.1) mEq/L Chloride (98-107) mEq/L Carbon Dioxide (21-32) mEq/L Anion Gap (5-15) BUN (7-18) mg/dL Creatinine (0.55-1.02) mg/dL Est Cr Clr Drug Dosing mL/min Estimated GFR (MDRD) (>60) mL/min BUN/Creatinine Ratio (14-18) Glucose (83-115) mg/dL POC Glucose 114 H 114 H (83-110) mg/dL Calcium (8.5-10.1) mg/dL Magnesium (1.8-2.4) mg/dl C-Reactive Protein (<1.0) mg/dL 09/07/17 09/07/17 Range/Units 14:48 14:48 WBC (3.98-10.04) K/mm3 RBC (3.98-5.22) M/mm3 Hgb (11.2-15.7) gm/L Hct (34.1-44.9) % MCV (79.4-94.8) fl MCH (25.6-32.2) pg MCHC (32.2-35.5) g/dl RDW Std Deviation (36.4-46.3) fL Plt Count (182-369) K/mm3 MPV (9.4-12.3) fl Neut % (Auto) (34.0-71.1) % Lymph % (Auto) (19.3-51.7) % Door % (Auto) (4.7-12.5) % Eos % (Auto) (0.7-5.8) Baso % (Auto) (0.1-1.2) % Neut # (Auto) (1.56-6.13) K/mm3 Lymph # (Auto) (1.18-3.74) K/mm3 Door # (Auto) (0.24-0.36) K/mm3 Eos # (Auto) (0.04-0.36) K/mm3 Baso # (Auto) (0.01-0.08) K/mm3 Manual Slide Review PT 21.3 H (8.0-13.0) SECONDS INR 1.88 Sodium 145 (136-145) mEq/L Potassium 3.6 (3.5-5.1) mEq/L Chloride 110 H (98-107) mEq/L Carbon Dioxide 27 (21-32) mEq/L Anion Gap 11.6 (5-15) BUN 14 (7-18) mg/dL Creatinine 0.9 (0.55-1.02) mg/dL Est Cr Clr Drug Dosing 30.44 mL/min Estimated GFR (MDRD) 59 (>60) mL/min BUN/Creatinine Ratio 15.6 (14-18) Glucose 130 H (83-115) mg/dL POC Glucose (83-110) mg/dL Calcium 8.5 (8.5-10.1) mg/dL Magnesium 1.8 (1.8-2.4) mg/dl C-Reactive Protein < 0.2 (<1.0) mg/dL Med Orders - Current: Current Medications Acetaminophen (Tylenol) 650 mg PO Q6H PRN PRN Reason: Pain Last Admin: 09/04/17 16:19 Dose: 650 mg Hydrocodone Bitart/Acetaminophen ([place] 325-5 Mg) 1 tab PO Q6H PRN PRN Reason: Pain Last Admin: 09/06/17 23:35 Dose: 1 tab Albuterol/Ipratropium (Duoneb 3.0-0.5 Mg/3 Ml) 3 ml NEB Q6HRRT PRN PRN Reason: wheezing/SOB/cough Last Admin: 09/06/17 23:43 Dose: 3 ml Enalapril Maleate (Vasotec) 20 mg PO BID [facility] Last Admin: 09/07/17 08:39 Dose: 20 mg Fenofibrate (Tricor) 145 mg PO DAILY [facility] Last Admin: 09/07/17 08:39 Dose: 145 mg Guaifenesin (Mucinex) 600 mg PO BID [facility] Last Admin: 09/07/17 08:41 Dose: 600 mg Guaifenesin/Phenylephrine HCl (Robitussin Dm) 10 ml PO Q4H PRN PRN Reason: Cough Last Admin: 09/06/17 10:14 Dose: 10 ml Hydralazine HCl (Apresoline) 20 mg IVPUSH Q6H PRN PRN Reason: Hypertension Last Admin: 09/07/17 01:18 Dose: 20 mg Insulin Aspart (Novolog) 0 unit SUBCUT BID@0700,2100 [facility] PRN Reason: Protocol Last Admin: 09/07/17 08:36 Dose: Not Given Metoprolol Tartrate (Lopressor) 25 mg PO Q12HR [facility] Last Admin: 09/07/17 08:40 Dose: 25 mg Multi-Ingred Cream/Lotion/Oil/Oint (Zinc Oxide) 0 gm TOP Q1H PRN PRN Reason: Diarrhea Ondansetron HCl (Zofran) 4 mg IVPUSH Q4H PRN PRN Reason: Nausea/Vomiting Last Admin: 09/07/17 08:48 Dose: 4 mg Diphenhyd/Lidocaine/ (Nystatin Mouthwash) 0 each PO QID PRN PRN Reason: Sore Throat Sertraline HCl (Zoloft) 75 mg PO DAILY [facility] Last Admin: 09/07/17 08:40 Dose: 75 mg Simvastatin (Zocor) 20 mg PO BEDTIME [facility] Last Admin: 09/06/17 21:10 Dose: 20 mg Sodium Chloride (Saline Flush) 10 ml FLUSH ASDIRECTED PRN PRN Reason: Keep Vein Open Last Admin: 08/29/17 19:16 Dose: 10 ml Temazepam (Restoril) 15 mg PO BEDTIME PRN PRN Reason: Insomnia Last Admin: 09/06/17 23:35 Dose: 15 mg Vancomycin HCl (First-Vancomycin 50 Compounding Kit) 500 mg PO QID [facility] Last Admin: 09/07/17 12:44 Dose: 10 ml Vitamin A/Vitamin D (Vitamin A & D) 0 gm TOP Q2H PRN PRN Reason: Apply to excoriated skin Witch Nikky (Tucks) 1 pad TOP TID PRN PRN Reason: perineal Last Admin: 09/06/17 10:20 Dose: 1 pad Discontinued Medications Cholestyramine Resin (Prevalite Packet) 4 gm PO BID [facility] Last Admin: 09/05/17 09:43 Dose: 4 gm Cholestyramine Resin (Prevalite Packet) 4 gm PO TID [facility] Last Admin: 09/07/17 08:58 Dose: 4 gm Enoxaparin Sodium (Lovenox) 30 mg SUBCUT DAILY [facility] Last Admin: 09/03/17 08:32 Dose: 30 mg Sodium Chloride (Normal Saline) 1,000 mls @ 999 mls/hr IV ONETIME ONE Stop: 08/29/17 19:37 Last Admin: 08/29/17 21:09 Dose: Not Given Sodium Chloride (Normal Saline) 500 mls @ 500 mls/hr IV .BOLUS ONE Stop: 08/29/17 19:40 Last Admin: 08/29/17 19:15 Dose: 500 mls/hr Sodium Chloride (Normal Saline) 1,000 mls @ 100 mls/hr IV ASDIRECTED [facility] Sodium Chloride (Normal Saline) 1,000 mls @ 150 mls/hr IV ASDIRECTED [facility] Stop: 08/30/17 05:00 Last Admin: 08/30/17 01:18 Dose: 150 mls/hr Sodium Chloride (Normal Saline) 1,000 mls @ 100 mls/hr IV ASDIRECTED [facility] Last Admin: 08/30/17 11:14 Dose: 100 mls/hr Metronidazole 500 mg/ Premix 100 mls @ 100 mls/hr IV Q8H [facility] Last Admin: 09/07/17 08:59 Dose: 100 mls/hr Metronidazole (Flagyl 500 Mg In Ns 100 Ml) Confirm Administered Dose 100 mls @ as directed .ROUTE .STK-MED ONE Stop: 08/30/17 17:39 Last Admin: 08/30/17 17:55 Dose: Not Given Sodium Chloride (Normal Saline) 1,000 mls @ 75 mls/hr IV ASDIRECTED [facility] Last Admin: 09/01/17 03:24 Dose: 75 mls/hr Ceftriaxone Sodium 2 gm/ (Sodium Chloride) 100 mls @ 200 mls/hr IV ONETIME ONE Stop: 08/30/17 19:29 Last Admin: 08/30/17 19:05 Dose: 200 mls/hr Ceftriaxone Sodium 1 gm/ (Dextrose/Water) 100 mls @ 200 mls/hr IV Q24H [facility] Stop: 09/01/17 21:30 Last Admin: 09/01/17 18:36 Dose: 200 mls/hr Sodium Chloride (Normal Saline) 100 mls @ 75 mls/hr IV ASDIRECTED [facility] Stop: 09/07/17 12:00 Insulin Aspart (Novolog) 0 unit SUBCUT BID GAUDENCIO PRN Reason: Protocol Last Admin: 08/30/17 08:24 Dose: Not Given Iopamidol (Isovue-370 (76%)) 100 ml IVPUSH ONETIME ONE Stop: 09/07/17 08:18 Last Admin: 09/07/17 12:41 Dose: Not Given Metoprolol Tartrate (Lopressor) 12.5 mg PO BID [facility] Last Admin: 09/03/17 08:45 Dose: 12.5 mg Metoprolol Tartrate (Lopressor) 12.5 mg PO ONETIME ONE Stop: 08/30/17 14:16 Last Admin: 08/30/17 14:12 Dose: 12.5 mg Metoprolol Tartrate (Lopressor) 25 mg PO Q12HR [facility] Metoprolol Tartrate (Lopressor) 25 mg PO Q12HR [facility] Metoprolol Tartrate (Lopressor) 12.5 mg PO Q12HR [facility] Last Admin: 09/06/17 09:56 Dose: 12.5 mg Januvia 100mg Own (Med) 1 each PO DAILY [facility] Non-Formulary Medication (Acetaminophen) 1 tab PO Q6HR PRN PRN Reason: Pain (moderate 4-6) Non-Formulary Medication (Enalapril) 10 mg PO BID [facility] Non-Formulary Medication (Sitagliptin) 100 mg PO DAILY [facility] Non-Formulary Medication (Warfarin) 1 mg PO ASDIRECTED [facility] Oseltamivir Phosphate (Tamiflu) 30 mg PO BID [facility] Last Admin: 08/31/17 09:16 Dose: 30 mg Oseltamivir Phosphate (Tamiflu) 30 mg PO DAILY [facility] Stop: 09/02/17 12:00 Last Admin: 09/02/17 10:43 Dose: 30 mg Oseltamivir Phosphate (Tamiflu) 30 mg PO ONETIME ONE Stop: 09/03/17 09:46 Last Admin: 09/03/17 10:07 Dose: 30 mg Phytonadione (Aquamephyton) 2.5 mg PO ONETIME ONE Stop: 09/07/17 07:21 Last Admin: 09/07/17 08:54 Dose: 2.5 mg Pneumococcal Polyvalent Vaccine (Pneumovax 23) 0.5 ml IM .ONCE ONE Stop: 09/01/17 09:06 Saccharomyces Boulardii (Florastor) 250 mg PO BID [facility] Last Admin: 09/07/17 08:41 Dose: 250 mg Sertraline HCl (Zoloft) 50 mg PO DAILY [facility] Last Admin: 08/31/17 09:16 Dose: 50 mg Sertraline HCl (Zoloft) 25 mg PO ONETIME ONE Stop: 08/31/17 20:31 Last Admin: 08/31/17 21:34 Dose: 25 mg Sodium Chloride (Saline Flush) 10 ml FLUSH ONETIME PRN PRN Reason: IV FLUSH Stop: 09/07/17 12:00 Temazepam (Restoril) 15 mg PO BEDTIME PRN PRN Reason: Insomnia Warfarin Sodium (Coumadin) 2 mg PO ASDIRECTED [facility] Warfarin Sodium (Coumadin) 2 mg PO SuTuWeThSa [facility] Last Admin: 09/01/17 18:51 Dose: 2 mg Warfarin Sodium (Coumadin) 1 mg PO MoFr [facility] Last Admin: 08/31/17 17:12 Dose: 1 mg - Exam General: Alert, Oriented, Cooperative, No Acute Distress HEENT: Pupils Equal, Pupils Reactive, EOMI, Mucous Membr. Moist/[place] Neck: Supple, Trachea Midline, No JVD Lungs: Clear to Auscultation, Normal Respiratory Effort Cardiovascular: Regular Rate, Regular Rhythm, Rubs GI/Abdominal Exam: Normal Bowel Sounds, Soft, Non-Tender, No Distention, No Abnormal Bruit, Other (Korin-anal/rectal erythema and irritations from diarrhea) (Female) Exam: Other (Vaginal erythema and irritation). No: Vaginal Discharge Back Exam: Normal Inspection, Decreased Range of Motion Extremities: Normal Inspection, Normal Range of Motion, Non-Tender, No Pedal Edema, Normal Capillary Refill Peripheral Pulses: 2+: Dorsalis Pedis (L), Dorsalis Pedis (R) Skin: Warm, Dry, Intact, Rash (As noted above) Neurological: No New Focal Deficit, Other. 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 - Query failed or incomplete treatment - On Flagyl/Vancomycin, Probiotics and Cholestyramine - She is able to tolerate diet - Discontinue Flagyl and keep Oral Vancomycin (taper dose on discharge) - Probiotics and Cholestyramine- no proven benefit - Stool is now Guacalome like in consistency - Dietary consult to start diet with more residue Subtherapeutic INR - INR have been elevated - Received one time dose of Vit K low dose and warfarin was held Aspiration Precautions - CXR: pneumonia versus atelectasis vs aspiration-> no infection symptoms, IS , monitor - F/u CXR this am: Shows atelectasis HTN - Acute on chronic - Still not controlled - Continue enalapril, BB, and PRN hydralazine - Clonidine 0.1 mg patch x 1 now - Resumed home dose lasix (renal function is fine) Vulvar and Korin-Rectal Contact Dermatitis - 2/2 Fecal Incontinence - C. Diff Associated Diarrhea - Continue current treatment and prevention Resolved: Leukocytosis - 2/2 Infections Repeat Influenza A screen, positive - Received 5 day course of Tamiflu therapy UTI 2/2 Klebsiella pneumoniae - Received appropriate antibiotic with Rocephin for 4-5 days Chronic: GERD HLD Dementia Anxiety Diabetes mellitus type 2 CVA Plan: She is clinically stable Continue oral Vancomycin; hospital don't carry Fidaxomicin Daily Labs Dietary consult DVT/GI prophylaxis Continue PT/OT and skin breakdown prevention or reduction Possible d/c in 1-2 days, would like to see if her stool consistency improves LOS > 96hrs due to slow response to treatment
[2017-09-07] MEDS ORDERED: Metoprolol Tartrate 5 MG/5 ML SDV IVPUSH PRN (18:11)
[2017-09-07] MEDS: Vitamins A and D Oint 56.7 GM Tube TOP PRN (18:43)
[2017-09-07] MEDS ORDERED: Magnesium Sulfate/Water 2 GM in Premix Bag 1 BAG IV ONE (18:45)
[2017-09-07] MEDS ORDERED: cloNIDine 0.1 MG/Day Transdermal Patch TRDERM SCH (19:00)
[2017-09-07] MEDS: Simvastatin 20 MG Tab PO SCH (20:59)
[2017-09-07] MEDS: Acetaminophen 325 MG Tab PO PRN (21:00)
[2017-09-07] MEDS: Temazepam 15 MG Cap PO PRN (21:12)
[2017-09-08] MEDS: hydrALAZINE 20 MG/ML SDV IVPUSH PRN ×2 (03:56→13:08)
[2017-09-08] MEDS: Insulin Aspart 100 Units/ML 3 ML Pen SUBCUT SCH ×2 (06:19→21:42)
[2017-09-08] MEDS: Vitamins A and D Oint 56.7 GM Tube TOP PRN ×3 (06:49→17:54)
[2017-09-08] MEDS: Sertraline 25 MG Tab PO SCH (08:25)
[2017-09-08] MEDS: Furosemide 40 MG Tab PO SCH (08:25)
[2017-09-08] MEDS: guaiFENesin 600 MG Tab.ER PO SCH ×2 (08:25→21:43)
[2017-09-08] MEDS: Metoprolol Tartrate 25 MG Tab PO SCH ×2 (08:26→21:40)
[2017-09-08] MEDS: Vancomycin 50 MG/ML 150ML Oral Solution Kit PO SCH ×4 (08:26→21:43)
[2017-09-08] MEDS: Fenofibrate Nanocrystallized 145 MG Tab PO SCH (08:26)
--- NOTE | 2017-09-08 08:52 | PCM.PN ---
- General Info Date of Service: 09/08/17 Admission Dx/Problem (Free Text): UTI, Influenza Subjective Update: Follow Up Functional Status: Reports: Pain Controlled, Tolerating Diet, Ambulating, Urinating. Denies: New Symptoms - Review of Systems General: Denies: Fever, Weakness, Fatigue, Malaise, Chills HEENT: Reports: No Symptoms Pulmonary: Reports: Shortness of Breath Cardiovascular: Reports: Chest Pain Gastrointestinal: Reports: Flatus. Denies: Abdominal Pain, Constipation, Diarrhea, Nausea, Vomiting Genitourinary: Reports: No Symptoms Musculoskeletal: Reports: No Symptoms Skin: Denies: Cyanosis, Mottled, Pallor, Diaphoresis Neurological: Reports: Gait Disturbance. Denies: Confusion, Difficulty Walking , Weakness Psychiatric: Denies: Depression, Anxiety, Agitation, Hallucinations Systems Review Comment:: No significant overnight issues. She is doing just fine. She had a total of 2 bowel movement in 24 hrs: 1 last night and 1 this am. Her stool looks like pasty and loose. - Patient Data Vitals - Most Recent: Last Vital Signs Temp 36.8 C 09/08/17 03:18 Pulse 86 09/08/17 08:26 Resp 15 09/08/17 03:18 BP 160/78 H 09/08/17 08:26 Pulse Ox 94 L 09/08/17 03:20 Weight - Most Recent: 68.175 kg I&O - Last 24 Hours: Intake & Output 09/07/17 09/08/17 09/08/17 22:59 06:59 14:59 Intake Total 560 250 Balance 560 250 Lab Results Last 24 Hours: Laboratory Results - last 24 hr 09/07/17 09/07/17 09/07/17 Range/Units 08:31 14:48 14:48 WBC 8.68 (3.98-10.04) K/mm3 RBC 4.56 (3.98-5.22) M/mm3 Hgb 12.6 (11.2-15.7) gm/L Hct 39.7 (34.1-44.9) % MCV 87.1 (79.4-94.8) fl MCH 27.6 (25.6-32.2) pg MCHC 31.7 L (32.2-35.5) g/dl RDW Std Deviation 44.3 (36.4-46.3) fL Plt Count 391 H (182-369) K/mm3 MPV 9.3 L (9.4-12.3) fl Neut % (Auto) 75.7 H (34.0-71.1) % Lymph % (Auto) 8.2 L (19.3-51.7) % [place] % (Auto) 10.6 (4.7-12.5) % Eos % (Auto) 4.3 (0.7-5.8) Baso % (Auto) 0.3 (0.1-1.2) % Neut # (Auto) 6.57 H (1.56-6.13) K/mm3 Lymph # (Auto) 0.71 L (1.18-3.74) K/mm3 [place] # (Auto) 0.92 H (0.24-0.36) K/mm3 Eos # (Auto) 0.37 H (0.04-0.36) K/mm3 Baso # (Auto) 0.03 (0.01-0.08) K/mm3 Manual Slide Review Normal smear PT (8.0-13.0) SECONDS INR Sodium 145 (136-145) mEq/L Potassium 3.6 (3.5-5.1) mEq/L Chloride 110 H (98-107) mEq/L Carbon Dioxide 27 (21-32) mEq/L Anion Gap 11.6 (5-15) BUN 14 (7-18) mg/dL Creatinine 0.9 (0.55-1.02) mg/dL Est Cr Clr Drug Dosing 30.44 mL/min Estimated GFR (MDRD) 59 (>60) mL/min BUN/Creatinine Ratio 15.6 (14-18) Glucose 130 H (83-115) mg/dL POC Glucose 114 H (83-110) mg/dL Calcium 8.5 (8.5-10.1) mg/dL Magnesium 1.8 (1.8-2.4) mg/dl C-Reactive Protein < 0.2 (<1.0) mg/dL 09/07/17 09/07/17 09/07/17 Range/Units 14:48 20:54 22:06 WBC (3.98-10.04) K/mm3 RBC (3.98-5.22) M/mm3 Hgb (11.2-15.7) gm/L Hct (34.1-44.9) % MCV (79.4-94.8) fl MCH (25.6-32.2) pg MCHC (32.2-35.5) g/dl RDW Std Deviation (36.4-46.3) fL Plt Count (182-369) K/mm3 MPV (9.4-12.3) fl Neut % (Auto) (34.0-71.1) % Lymph % (Auto) (19.3-51.7) % [place] % (Auto) (4.7-12.5) % Eos % (Auto) (0.7-5.8) Baso % (Auto) (0.1-1.2) % Neut # (Auto) (1.56-6.13) K/mm3 Lymph # (Auto) (1.18-3.74) K/mm3 [place] # (Auto) (0.24-0.36) K/mm3 Eos # (Auto) (0.04-0.36) K/mm3 Baso # (Auto) (0.01-0.08) K/mm3 Manual Slide Review PT 21.3 H (8.0-13.0) SECONDS INR 1.88 Sodium (136-145) mEq/L Potassium (3.5-5.1) mEq/L Chloride (98-107) mEq/L Carbon Dioxide (21-32) mEq/L Anion Gap (5-15) BUN (7-18) mg/dL Creatinine (0.55-1.02) mg/dL Est Cr Clr Drug Dosing mL/min Estimated GFR (MDRD) (>60) mL/min BUN/Creatinine Ratio (14-18) Glucose (83-115) mg/dL POC Glucose 138 H 129 H (83-110) mg/dL Calcium (8.5-10.1) mg/dL Magnesium (1.8-2.4) mg/dl C-Reactive Protein (<1.0) mg/dL 09/08/17 Range/Units 05:55 WBC (3.98-10.04) K/mm3 RBC (3.98-5.22) M/mm3 Hgb (11.2-15.7) gm/L Hct (34.1-44.9) % MCV (79.4-94.8) fl MCH (25.6-32.2) pg MCHC (32.2-35.5) g/dl RDW Std Deviation (36.4-46.3) fL Plt Count (182-369) K/mm3 MPV (9.4-12.3) fl Neut % (Auto) (34.0-71.1) % Lymph % (Auto) (19.3-51.7) % San[place] % (Auto) (4.7-12.5) % Eos % (Auto) (0.7-5.8) Baso % (Auto) (0.1-1.2) % Neut # (Auto) (1.56-6.13) K/mm3 Lymph # (Auto) (1.18-3.74) K/mm3 [place] # (Auto) (0.24-0.36) K/mm3 Eos # (Auto) (0.04-0.36) K/mm3 Baso # (Auto) (0.01-0.08) K/mm3 Manual Slide Review PT (8.0-13.0) SECONDS INR Sodium (136-145) mEq/L Potassium (3.5-5.1) mEq/L Chloride (98-107) mEq/L Carbon Dioxide (21-32) mEq/L Anion Gap (5-15) BUN (7-18) mg/dL Creatinine (0.55-1.02) mg/dL Est Cr Clr Drug Dosing mL/min Estimated GFR (MDRD) (>60) mL/min BUN/Creatinine Ratio (14-18) Glucose (83-115) mg/dL POC Glucose 108 (83-110) mg/dL Calcium (8.5-10.1) mg/dL Magnesium (1.8-2.4) mg/dl C-Reactive Protein (<1.0) mg/dL Med Orders - Current: Current Medications Acetaminophen (Tylenol) 650 mg PO Q6H PRN PRN Reason: Pain Last Admin: 09/07/17 21:00 Dose: 650 mg Hydrocodone Bitart/Acetaminophen ([place] 325-5 Mg) 1 tab PO Q6H PRN PRN Reason: Pain Last Admin: 09/06/17 23:35 Dose: 1 tab Albuterol/Ipratropium (Duoneb 3.0-0.5 Mg/3 Ml) 3 ml NEB Q6HRRT PRN PRN Reason: wheezing/SOB/cough Last Admin: 09/06/17 23:43 Dose: 3 ml Clonidine HCl (Catapres-Tts 1) 0.1 mg TRDERM Q7D [facility] Last Admin: 09/07/17 21:01 Dose: 0.1 mg Enalapril Maleate (Vasotec) 20 mg PO BID [facility] Last Admin: 09/08/17 08:25 Dose: 20 mg Fenofibrate (Tricor) 145 mg PO DAILY [facility] Last Admin: 09/08/17 08:26 Dose: 145 mg Furosemide (Lasix) 40 mg PO DAILY [facility] Last Admin: 09/08/17 08:25 Dose: 40 mg Guaifenesin (Mucinex) 600 mg PO BID [facility] Last Admin: 09/08/17 08:25 Dose: 600 mg Guaifenesin/Phenylephrine HCl (Robitussin Dm) 10 ml PO Q4H PRN PRN Reason: Cough Last Admin: 09/06/17 10:14 Dose: 10 ml Hydralazine HCl (Apresoline) 10 mg IVPUSH Q4H PRN PRN Reason: Hypertension Last Admin: 09/08/17 03:56 Dose: 10 mg Insulin Aspart (Novolog) 0 unit SUBCUT BID@0700,2100 [facility] PRN Reason: Protocol Last Admin: 09/08/17 06:19 Dose: Not Given Magnesium Sulfate (Pharmacy To Dose - Magnesium Replacement) 1 dose .XX ASDIRECTED [facility] Metoprolol Tartrate (Lopressor) 25 mg PO Q12HR [facility] Last Admin: 09/08/17 08:26 Dose: 25 mg Metoprolol Tartrate (Lopressor) 5 mg IVPUSH Q4H PRN PRN Reason: Tachycardia Miscellaneous Information (Remove Patch) 1 ea TRDERM Q7D [facility] Multi-Ingred Cream/Lotion/Oil/Oint (Zinc Oxide) 0 gm TOP Q1H PRN PRN Reason: Diarrhea Ondansetron HCl (Zofran) 4 mg IVPUSH Q4H PRN PRN Reason: Nausea/Vomiting Last Admin: 09/07/17 08:48 Dose: 4 mg Diphenhyd/Lidocaine/ (Nystatin Mouthwash) 0 each PO QID PRN PRN Reason: Sore Throat Potassium Chloride (Pharmacy To Dose - Potassium Replacement) 1 dose .XX ASDIRECTED [facility] Sertraline HCl (Zoloft) 75 mg PO DAILY [facility] Last Admin: 09/08/17 08:25 Dose: 75 mg Simvastatin (Zocor) 20 mg PO BEDTIME [facility] Last Admin: 09/07/17 20:59 Dose: 20 mg Sodium Chloride (Saline Flush) 10 ml FLUSH ASDIRECTED PRN PRN Reason: Keep Vein Open Last Admin: 08/29/17 19:16 Dose: 10 ml Temazepam (Restoril) 15 mg PO BEDTIME PRN PRN Reason: Insomnia Last Admin: 09/07/17 21:12 Dose: 15 mg Vancomycin HCl (First-Vancomycin 50 Compounding Kit) 500 mg PO QID [facility] Last Admin: 09/08/17 08:26 Dose: 10 ml Vitamin A/Vitamin D (Vitamin A & D) 0 gm TOP Q2H PRN PRN Reason: Apply to excoriated skin Last Admin: 09/08/17 06:49 Dose: 1 applic Witch Nikky (Tucks) 1 pad TOP TID PRN PRN Reason: perineal Last Admin: 09/06/17 10:20 Dose: 1 pad Discontinued Medications Cholestyramine Resin (Prevalite Packet) 4 gm PO BID [facility] Last Admin: 09/05/17 09:43 Dose: 4 gm Cholestyramine Resin (Prevalite Packet) 4 gm PO TID [facility] Last Admin: 09/07/17 08:58 Dose: 4 gm Enoxaparin Sodium (Lovenox) 30 mg SUBCUT DAILY [facility] Last Admin: 09/03/17 08:32 Dose: 30 mg Hydralazine HCl (Apresoline) 20 mg IVPUSH Q6H PRN PRN Reason: Hypertension Last Admin: 09/07/17 18:59 Dose: 20 mg Sodium Chloride (Normal Saline) 1,000 mls @ 999 mls/hr IV ONETIME ONE Stop: 08/29/17 19:37 Last Admin: 08/29/17 21:09 Dose: Not Given Sodium Chloride (Normal Saline) 500 mls @ 500 mls/hr IV .BOLUS ONE Stop: 08/29/17 19:40 Last Admin: 08/29/17 19:15 Dose: 500 mls/hr Sodium Chloride (Normal Saline) 1,000 mls @ 100 mls/hr IV ASDIRECTED [facility] Sodium Chloride (Normal Saline) 1,000 mls @ 150 mls/hr IV ASDIRECTED [facility] Stop: 08/30/17 05:00 Last Admin: 08/30/17 01:18 Dose: 150 mls/hr Sodium Chloride (Normal Saline) 1,000 mls @ 100 mls/hr IV ASDIRECTED [facility] Last Admin: 08/30/17 11:14 Dose: 100 mls/hr Metronidazole 500 mg/ Premix 100 mls @ 100 mls/hr IV Q8H [facility] Last Admin: 09/07/17 08:59 Dose: 100 mls/hr Metronidazole (Flagyl 500 Mg In Ns 100 Ml) Confirm Administered Dose 100 mls @ as directed .ROUTE .STK-MED ONE Stop: 08/30/17 17:39 Last Admin: 08/30/17 17:55 Dose: Not Given Sodium Chloride (Normal Saline) 1,000 mls @ 75 mls/hr IV ASDIRECTED [facility] Last Admin: 09/01/17 03:24 Dose: 75 mls/hr Ceftriaxone Sodium 2 gm/ (Sodium Chloride) 100 mls @ 200 mls/hr IV ONETIME ONE Stop: 08/30/17 19:29 Last Admin: 08/30/17 19:05 Dose: 200 mls/hr Ceftriaxone Sodium 1 gm/ (Dextrose/Water) 100 mls @ 200 mls/hr IV Q24H [facility] Stop: 09/01/17 21:30 Last Admin: 09/01/17 18:36 Dose: 200 mls/hr Sodium Chloride (Normal Saline) 100 mls @ 75 mls/hr IV ASDIRECTED [facility] Stop: 09/07/17 12:00 Magnesium Sulfate 2 gm/ Premix 50 mls @ 50 mls/hr IV ONETIME ONE Stop: 09/07/17 19:44 Last Admin: 09/07/17 19:00 Dose: 50 mls/hr Insulin Aspart (Novolog) 0 unit SUBCUT BID [facility] PRN Reason: Protocol Last Admin: 08/30/17 08:24 Dose: Not Given Iopamidol (Isovue-370 (76%)) 100 ml IVPUSH ONETIME ONE Stop: 09/07/17 08:18 Last Admin: 09/07/17 12:41 Dose: Not Given Metoprolol Tartrate (Lopressor) 12.5 mg PO BID [facility] Last Admin: 09/03/17 08:45 Dose: 12.5 mg Metoprolol Tartrate (Lopressor) 12.5 mg PO ONETIME ONE Stop: 08/30/17 14:16 Last Admin: 08/30/17 14:12 Dose: 12.5 mg Metoprolol Tartrate (Lopressor) 25 mg PO Q12HR [facility] Metoprolol Tartrate (Lopressor) 25 mg PO Q12HR [facility] Metoprolol Tartrate (Lopressor) 12.5 mg PO Q12HR [facility] Last Admin: 09/06/17 09:56 Dose: 12.5 mg Januvia 100mg Own (Med) 1 each PO DAILY [facility] Non-Formulary Medication (Acetaminophen) 1 tab PO Q6HR PRN PRN Reason: Pain (moderate 4-6) Non-Formulary Medication (Enalapril) 10 mg PO BID [facility] Non-Formulary Medication (Sitagliptin) 100 mg PO DAILY [facility] Non-Formulary Medication (Warfarin) 1 mg PO ASDIRECTED [facility] Oseltamivir Phosphate (Tamiflu) 30 mg PO BID [facility] Last Admin: 08/31/17 09:16 Dose: 30 mg Oseltamivir Phosphate (Tamiflu) 30 mg PO DAILY [facility] Stop: 09/02/17 12:00 Last Admin: 09/02/17 10:43 Dose: 30 mg Oseltamivir Phosphate (Tamiflu) 30 mg PO ONETIME ONE Stop: 09/03/17 09:46 Last Admin: 09/03/17 10:07 Dose: 30 mg Phytonadione (Aquamephyton) 2.5 mg PO ONETIME ONE Stop: 09/07/17 07:21 Last Admin: 09/07/17 08:54 Dose: 2.5 mg Pneumococcal Polyvalent Vaccine (Pneumovax 23) 0.5 ml IM .ONCE ONE Stop: 09/01/17 09:06 Saccharomyces Boulardii (Florastor) 250 mg PO BID [facility] Last Admin: 09/07/17 08:41 Dose: 250 mg Sertraline HCl (Zoloft) 50 mg PO DAILY [facility] Last Admin: 08/31/17 09:16 Dose: 50 mg Sertraline HCl (Zoloft) 25 mg PO ONETIME ONE Stop: 08/31/17 20:31 Last Admin: 08/31/17 21:34 Dose: 25 mg Sodium Chloride (Saline Flush) 10 ml FLUSH ONETIME PRN PRN Reason: IV FLUSH Stop: 09/07/17 12:00 Temazepam (Restoril) 15 mg PO BEDTIME PRN PRN Reason: Insomnia Warfarin Sodium (Coumadin) 2 mg PO ASDIRECTED [facility] Warfarin Sodium (Coumadin) 2 mg PO SuTuWeThSa [facility] Last Admin: 09/01/17 18:51 Dose: 2 mg Warfarin Sodium (Coumadin) 1 mg PO MoFr [facility] Last Admin: 08/31/17 17:12 Dose: 1 mg - Exam General: Alert, Cooperative, No Acute Distress HEENT: Pupils Equal, Pupils Reactive, EOMI, Mucous Membr. Moist/Hazel Neck: Supple, Trachea Midline, No Thyromegaly, Lymphadenopathy Lungs: Normal Respiratory Effort, Decreased Breath Sounds Cardiovascular: Regular Rate, Regular Rhythm GI/Abdominal Exam: Normal Bowel Sounds, Soft, Non-Tender, No Organomegaly, No Distention, No Abnormal Bruit (Female) Exam: Deferred Back Exam: Normal Inspection, Decreased Range of Motion Extremities: Normal Inspection, Normal Range of Motion, Non-Tender, No Pedal Edema, Normal Capillary Refill Peripheral Pulses: 2+: Dorsalis Pedis (L), Dorsalis Pedis (R) Skin: Warm, Dry, Intact Neurological: No New Focal Deficit Psy/Mental Status: Alert, Normal Affect, Normal Mood - Problem List Review Problem List Initiated/Reviewed/Updated: Yes - My Orders Last 24 Hours: My Active Orders 09/07/17 16:20 Consult to Dietary [Consult to Utilization Management Um Nurse] [CONS] Routine 09/07/17 18:11 Metoprolol Tartrate [Lopressor] 5 mg IVPUSH Q4H PRN hydrALAZINE [Apresoline] 10 mg IVPUSH Q4H PRN 09/07/17 18:15 Magnesium Rep Pharmacy to Dose [Pharmacy to Dose - Magnesium Replacement] 1 dose .XX ASDIRECTED Potassium Rep Pharmacy to Dose [Pharmacy to Dose - Potassium Replacement] 1 dose .XX ASDIRECTED 09/07/17 19:00 cloNIDine [Catapres-TTS 1] 0.1 mg TRDERM Q7D 09/08/17 05:11 BMP [BASIC METABOLIC PANEL,BMP] [CHEM] AM INR,PT,PROTHROMBIN TIME [COAG] AM 09/08/17 09:00 Furosemide [Lasix] 40 mg PO DAILY 09/09/17 05:11 BMP [BASIC METABOLIC PANEL,BMP] [CHEM] AM INR,PT,PROTHROMBIN TIME [COAG] AM 09/10/17 05:11 BMP [BASIC METABOLIC PANEL,BMP] [CHEM] AM INR,PT,PROTHROMBIN TIME [COAG] AM 09/14/17 19:00 Remove Patch 1 ea DEBRA Q7D - Plan Plan:: Impression: Acute CDI/CDAD, Improved - 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 - Query failed or incomplete treatment - On Flagyl/Vancomycin, Probiotics and Cholestyramine - She is able to tolerate diet - Discontinue Flagyl and keep Oral Vancomycin (taper dose on discharge) - Probiotics and Cholestyramine- no proven benefit - Stool is now Guacalome like in consistency - Continue high residue diet Subtherapeutic INR - INR 1.88--> 1.17 - INR have been elevated - Received one time dose of Vit K low dose and warfarin was held - Resume home dose + 7.5 mg po x1 today - Heparin 5000 mg Sub BID for bridging Aspiration Precautions - CXR: pneumonia versus atelectasis vs aspiration-> no infection symptoms, IS , monitor - F/u CXR this am: Shows atelectasis HTN, Unchanged - Acute on chronic - Still not controlled - Continue enalapril, BB, Bumex and PRN hydralazine - Clonidine 0.1 mg patch and 0.1 mg po x1 now Vulvar and Korin-Rectal Contact Dermatitis - 2/2 Fecal Incontinence - C. Diff Associated Diarrhea - Continue current treatment and prevention Resolved: Leukocytosis - 2/2 Infections Repeat Influenza A screen, positive - Received 5 day course of Tamiflu therapy UTI 2/2 Klebsiella pneumoniae - Received appropriate antibiotic with Rocephin for 4-5 days S/P Fall without LOC - Has gait abnormality - Head CT scan: No acute intra-cranial abnormality - CXR shows benign findings - She's alert and wake during my examination Chronic: GERD HLD Dementia Anxiety Diabetes mellitus type 2 CVA Plan: She remains clinically stable Continue oral Vancomycin; hospital don't carry Fidaxomicin Daily Labs Dietary consult DVT/GI prophylaxis Continue PT/OT and skin breakdown prevention or reduction Possible d/c in AM
[2017-09-08] MEDS ORDERED: cloNIDine 0.1 MG Tab PO ONE (18:31)
[2017-09-08] MEDS ORDERED: Warfarin 7.5 MG Tab PO ONE (18:33)
[2017-09-08] MEDS: Warfarin 2 MG Tab PO SCH (19:43)
[2017-09-08] MEDS: Heparin Sodium 5,000 Units/ML Vial SUBCUT SCH (21:41)
[2017-09-08] MEDS: Simvastatin 20 MG Tab PO SCH (21:41)
[2017-09-09] MEDS: Vitamins A and D Oint 56.7 GM Tube TOP PRN ×2 (09:00→15:10)
[2017-09-09] MEDS: Vancomycin 50 MG/ML 150ML Oral Solution Kit PO SCH ×4 (09:38→20:28)
[2017-09-09] MEDS: Heparin Sodium 5,000 Units/ML Vial SUBCUT SCH ×2 (09:39→20:28)
[2017-09-09] MEDS: Fenofibrate Nanocrystallized 145 MG Tab PO SCH (09:39)
[2017-09-09] MEDS: guaiFENesin 600 MG Tab.ER PO SCH ×2 (09:40→20:29)
[2017-09-09] MEDS: Metoprolol Tartrate 25 MG Tab PO SCH ×2 (09:40→20:30)
[2017-09-09] MEDS: Furosemide 40 MG Tab PO SCH (09:43)
[2017-09-09] MEDS: Sertraline 25 MG Tab PO SCH (09:44)
[2017-09-09] MEDS: Insulin Aspart 100 Units/ML 3 ML Pen SUBCUT SCH ×2 (09:51→21:00)
--- NOTE | 2017-09-09 12:52 | PCM.PN ---
- General Info Date of Service: 09/09/17 Admission Dx/Problem (Free Text): UTI, Influenza Subjective Update: Follow Up Functional Status: Reports: Pain Controlled, Tolerating Diet, Ambulating, Urinating - Review of Systems General: Denies: Fever, Weakness, Fatigue, Malaise HEENT: Reports: No Symptoms Pulmonary: Denies: Shortness of Breath Cardiovascular: Denies: Chest Pain Gastrointestinal: Reports: Diarrhea, Flatus. Denies: Abdominal Pain, Decreased Appetite, Nausea, Vomiting Genitourinary: Reports: Burning (korin-anal/rectal region) Musculoskeletal: Reports: No Symptoms Skin: Denies: Cyanosis, Jaundice, Mottled, Pallor, Diaphoresis Neurological: Reports: Gait Disturbance. Denies: Confusion, Difficulty Walking , Weakness Psychiatric: Denies: Depression, Anxiety, Agitation, Hallucinations Systems Review Comment:: She had a rough night last night with multiple episodes of watery and creamy like stool. She remains afebrile w/o leukocyosis. Her bottom is sore but not any better. She report now other complaints. - Patient Data Vitals - Most Recent: Last Vital Signs Temp 36.3 C 09/09/17 12:03 Pulse 76 09/09/17 12:03 Resp 24 H 09/09/17 12:03 BP 164/76 H 09/09/17 12:03 Pulse Ox 95 09/09/17 12:03 Weight - Most Recent: 65.907 kg I&O - Last 24 Hours: Intake & Output 09/08/17 09/09/17 09/09/17 22:59 06:59 14:59 Intake Total 400 650 Output Total 525 Balance 400 125 Lab Results Last 24 Hours: Laboratory Results - last 24 hr 09/08/17 09/08/17 09/09/17 Range/Units 17:57 20:59 06:38 WBC (3.98-10.04) K/mm3 RBC (3.98-5.22) M/mm3 Hgb (11.2-15.7) gm/L Hct (34.1-44.9) % MCV (79.4-94.8) fl MCH (25.6-32.2) pg MCHC (32.2-35.5) g/dl RDW Std Deviation (36.4-46.3) fL Plt Count (182-369) K/mm3 MPV (9.4-12.3) fl Neut % (Auto) (34.0-71.1) % Lymph % (Auto) (19.3-51.7) % [place] % (Auto) (4.7-12.5) % Eos % (Auto) (0.7-5.8) Baso % (Auto) (0.1-1.2) % Neut # (Auto) (1.56-6.13) K/mm3 Lymph # (Auto) (1.18-3.74) K/mm3 [place] # (Auto) (0.24-0.36) K/mm3 Eos # (Auto) (0.04-0.36) K/mm3 Baso # (Auto) (0.01-0.08) K/mm3 Manual Slide Review PT (8.0-13.0) SECONDS INR Sodium (136-145) mEq/L Potassium (3.5-5.1) mEq/L Chloride (98-107) mEq/L Carbon Dioxide (21-32) mEq/L Anion Gap (5-15) BUN (7-18) mg/dL Creatinine (0.55-1.02) mg/dL Est Cr Clr Drug Dosing mL/min Estimated GFR (MDRD) (>60) mL/min BUN/Creatinine Ratio (14-18) Glucose (83-115) mg/dL POC Glucose 118 H 159 H 106 (83-110) mg/dL Calcium (8.5-10.1) mg/dL 09/09/17 09/09/17 09/09/17 Range/Units 10:07 10:07 10:07 WBC 6.13 (3.98-10.04) K/mm3 RBC 4.51 (3.98-5.22) M/mm3 Hgb 12.5 (11.2-15.7) gm/L Hct 39.5 (34.1-44.9) % MCV 87.6 (79.4-94.8) fl MCH 27.7 (25.6-32.2) pg MCHC 31.6 L (32.2-35.5) g/dl RDW Std Deviation 44.0 (36.4-46.3) fL Plt Count 324 (182-369) K/mm3 MPV 9.6 (9.4-12.3) fl Neut % (Auto) 75.9 H (34.0-71.1) % Lymph % (Auto) 8.5 L (19.3-51.7) % [place] % (Auto) 10.4 (4.7-12.5) % Eos % (Auto) 4.4 (0.7-5.8) Baso % (Auto) 0.3 (0.1-1.2) % Neut # (Auto) 4.65 (1.56-6.13) K/mm3 Lymph # (Auto) 0.52 L (1.18-3.74) K/mm3 [place] # (Auto) 0.64 H (0.24-0.36) K/mm3 Eos # (Auto) 0.27 (0.04-0.36) K/mm3 Baso # (Auto) 0.02 (0.01-0.08) K/mm3 Manual Slide Review Abnormal smear PT 14.0 H (8.0-13.0) SECONDS INR 1.27 Sodium 144 (136-145) mEq/L Potassium 3.8 (3.5-5.1) mEq/L Chloride 108 H (98-107) mEq/L Carbon Dioxide 30 (21-32) mEq/L Anion Gap 9.8 (5-15) BUN 17 (7-18) mg/dL Creatinine 0.9 (0.55-1.02) mg/dL Est Cr Clr Drug Dosing 30.44 mL/min Estimated GFR (MDRD) 59 (>60) mL/min BUN/Creatinine Ratio 18.9 H (14-18) Glucose 151 H (83-115) mg/dL POC Glucose (83-110) mg/dL Calcium 8.5 (8.5-10.1) mg/dL Med Orders - Current: Current Medications Acetaminophen (Tylenol) 650 mg PO Q6H PRN PRN Reason: Pain Last Admin: 09/07/17 21:00 Dose: 650 mg Hydrocodone Bitart/Acetaminophen ([place] 325-5 Mg) 1 tab PO Q6H PRN PRN Reason: Pain Last Admin: 09/06/17 23:35 Dose: 1 tab Albuterol/Ipratropium (Duoneb 3.0-0.5 Mg/3 Ml) 3 ml NEB Q6HRRT PRN PRN Reason: wheezing/SOB/cough Last Admin: 09/06/17 23:43 Dose: 3 ml Clonidine HCl (Catapres-Tts 1) 0.1 mg TRDERM Q7D [facility] Last Admin: 09/07/17 21:01 Dose: 0.1 mg Enalapril Maleate (Vasotec) 20 mg PO BID [facility] Last Admin: 09/09/17 09:40 Dose: 20 mg Fenofibrate (Tricor) 145 mg PO DAILY [facility] Last Admin: 09/09/17 09:39 Dose: 145 mg Furosemide (Lasix) 40 mg PO DAILY [facility] Last Admin: 09/09/17 09:43 Dose: 40 mg Guaifenesin (Mucinex) 600 mg PO BID [facility] Last Admin: 09/09/17 09:40 Dose: 600 mg Guaifenesin/Phenylephrine HCl (Robitussin Dm) 10 ml PO Q4H PRN PRN Reason: Cough Last Admin: 09/06/17 10:14 Dose: 10 ml Heparin Sodium (Porcine) (Heparin Sodium) 5,000 units SUBCUT Q12HR [facility] Last Admin: 09/09/17 09:39 Dose: 5,000 units Hydralazine HCl (Apresoline) 10 mg IVPUSH Q4H PRN PRN Reason: Hypertension Last Admin: 09/08/17 13:08 Dose: 10 mg Insulin Aspart (Novolog) 0 unit SUBCUT BID@0700,2100 [facility] PRN Reason: Protocol Last Admin: 09/09/17 09:51 Dose: Not Given Magnesium Sulfate (Pharmacy To Dose - Magnesium Replacement) 1 dose .XX ASDIRECTED [facility] Metoprolol Tartrate (Lopressor) 25 mg PO Q12HR [facility] Last Admin: 09/09/17 09:40 Dose: 25 mg Metoprolol Tartrate (Lopressor) 5 mg IVPUSH Q4H PRN PRN Reason: Tachycardia Miscellaneous Information (Remove Patch) 1 ea TRDERM Q7D [facility] Multi-Ingred Cream/Lotion/Oil/Oint (Zinc Oxide) 0 gm TOP Q1H PRN PRN Reason: Diarrhea Last Admin: 09/08/17 21:57 Dose: 1 applic Ondansetron HCl (Zofran) 4 mg IVPUSH Q4H PRN PRN Reason: Nausea/Vomiting Last Admin: 09/07/17 08:48 Dose: 4 mg Diphenhyd/Lidocaine/ (Nystatin Mouthwash) 0 each PO QID PRN PRN Reason: Sore Throat Potassium Chloride (Pharmacy To Dose - Potassium Replacement) 1 dose .XX ASDIRECTED [facility] Sertraline HCl (Zoloft) 75 mg PO DAILY [facility] Last Admin: 09/09/17 09:44 Dose: 75 mg Simvastatin (Zocor) 20 mg PO BEDTIME [facility] Last Admin: 09/08/17 21:41 Dose: 20 mg Sodium Chloride (Saline Flush) 10 ml FLUSH ASDIRECTED PRN PRN Reason: Keep Vein Open Last Admin: 08/29/17 19:16 Dose: 10 ml Temazepam (Restoril) 15 mg PO BEDTIME PRN PRN Reason: Insomnia Last Admin: 09/07/17 21:12 Dose: 15 mg Vancomycin HCl (First-Vancomycin 50 Compounding Kit) 500 mg PO QID [facility] Last Admin: 09/09/17 09:38 Dose: 10 ml Vitamin A/Vitamin D (Vitamin A & D) 0 gm TOP Q2H PRN PRN Reason: Apply to excoriated skin Last Admin: 09/08/17 17:54 Dose: 1 applic Warfarin Sodium (Coumadin) 2 mg PO SuTuWeThSa [facility] Last Admin: 09/08/17 19:43 Dose: 2 mg Warfarin Sodium (Coumadin) 1 mg PO MoFr [facility] Edda Sher (Rebeka) 1 pad TOP TID PRN PRN Reason: perineal Last Admin: 09/06/17 10:20 Dose: 1 pad Discontinued Medications Cholestyramine Resin (Prevalite Packet) 4 gm PO BID [facility] Last Admin: 09/05/17 09:43 Dose: 4 gm Cholestyramine Resin (Prevalite Packet) 4 gm PO TID [facility] Last Admin: 09/07/17 08:58 Dose: 4 gm Clonidine HCl (Catapres) 0.1 mg PO ONETIME ONE Stop: 09/08/17 18:32 Last Admin: 09/08/17 19:43 Dose: 0.1 mg Enoxaparin Sodium (Lovenox) 30 mg SUBCUT DAILY [facility] Last Admin: 09/03/17 08:32 Dose: 30 mg Hydralazine HCl (Apresoline) 20 mg IVPUSH Q6H PRN PRN Reason: Hypertension Last Admin: 09/07/17 18:59 Dose: 20 mg Sodium Chloride (Normal Saline) 1,000 mls @ 999 mls/hr IV ONETIME ONE Stop: 08/29/17 19:37 Last Admin: 08/29/17 21:09 Dose: Not Given Sodium Chloride (Normal Saline) 500 mls @ 500 mls/hr IV .BOLUS ONE Stop: 08/29/17 19:40 Last Admin: 08/29/17 19:15 Dose: 500 mls/hr Sodium Chloride (Normal Saline) 1,000 mls @ 100 mls/hr IV ASDIRECTED [facility] Sodium Chloride (Normal Saline) 1,000 mls @ 150 mls/hr IV ASDIRECTED [facility] Stop: 08/30/17 05:00 Last Admin: 08/30/17 01:18 Dose: 150 mls/hr Sodium Chloride (Normal Saline) 1,000 mls @ 100 mls/hr IV ASDIRECTED [facility] Last Admin: 08/30/17 11:14 Dose: 100 mls/hr Metronidazole 500 mg/ Premix 100 mls @ 100 mls/hr IV Q8H [facility] Last Admin: 09/07/17 08:59 Dose: 100 mls/hr Metronidazole (Flagyl 500 Mg In Ns 100 Ml) Confirm Administered Dose 100 mls @ as directed .ROUTE .STK-MED ONE Stop: 08/30/17 17:39 Last Admin: 08/30/17 17:55 Dose: Not Given Sodium Chloride (Normal Saline) 1,000 mls @ 75 mls/hr IV ASDIRECTED [facility] Last Admin: 09/01/17 03:24 Dose: 75 mls/hr Ceftriaxone Sodium 2 gm/ (Sodium Chloride) 100 mls @ 200 mls/hr IV ONETIME ONE Stop: 08/30/17 19:29 Last Admin: 08/30/17 19:05 Dose: 200 mls/hr Ceftriaxone Sodium 1 gm/ (Dextrose/Water) 100 mls @ 200 mls/hr IV Q24H [facility] Stop: 09/01/17 21:30 Last Admin: 09/01/17 18:36 Dose: 200 mls/hr Sodium Chloride (Normal Saline) 100 mls @ 75 mls/hr IV ASDIRECTED [facility] Stop: 09/07/17 12:00 Magnesium Sulfate 2 gm/ Premix 50 mls @ 50 mls/hr IV ONETIME ONE Stop: 09/07/17 19:44 Last Admin: 09/07/17 19:00 Dose: 50 mls/hr Insulin Aspart (Novolog) 0 unit SUBCUT BID [facility] PRN Reason: Protocol Last Admin: 08/30/17 08:24 Dose: Not Given Iopamidol (Isovue-370 (76%)) 100 ml IVPUSH ONETIME ONE Stop: 09/07/17 08:18 Last Admin: 09/07/17 12:41 Dose: Not Given Metoprolol Tartrate (Lopressor) 12.5 mg PO BID [facility] Last Admin: 09/03/17 08:45 Dose: 12.5 mg Metoprolol Tartrate (Lopressor) 12.5 mg PO ONETIME ONE Stop: 08/30/17 14:16 Last Admin: 08/30/17 14:12 Dose: 12.5 mg Metoprolol Tartrate (Lopressor) 25 mg PO Q12HR [facility] Metoprolol Tartrate (Lopressor) 25 mg PO Q12HR [facility] Metoprolol Tartrate (Lopressor) 12.5 mg PO Q12HR [facility] Last Admin: 09/06/17 09:56 Dose: 12.5 mg Januvia 100mg Own (Med) 1 each PO DAILY [facility] Non-Formulary Medication (Acetaminophen) 1 tab PO Q6HR PRN PRN Reason: Pain (moderate 4-6) Non-Formulary Medication (Enalapril) 10 mg PO BID [facility] Non-Formulary Medication (Sitagliptin) 100 mg PO DAILY [facility] Non-Formulary Medication (Warfarin) 1 mg PO ASDIRECTED [facility] Oseltamivir Phosphate (Tamiflu) 30 mg PO BID [facility] Last Admin: 08/31/17 09:16 Dose: 30 mg Oseltamivir Phosphate (Tamiflu) 30 mg PO DAILY [facility] Stop: 09/02/17 12:00 Last Admin: 09/02/17 10:43 Dose: 30 mg Oseltamivir Phosphate (Tamiflu) 30 mg PO ONETIME ONE Stop: 09/03/17 09:46 Last Admin: 09/03/17 10:07 Dose: 30 mg Phytonadione (Aquamephyton) 2.5 mg PO ONETIME ONE Stop: 09/07/17 07:21 Last Admin: 09/07/17 08:54 Dose: 2.5 mg Pneumococcal Polyvalent Vaccine (Pneumovax 23) 0.5 ml IM .ONCE ONE Stop: 09/01/17 09:06 Saccharomyces Jeffi (Florastor) 250 mg PO BID [facility] Last Admin: 09/07/17 08:41 Dose: 250 mg Sertraline HCl (Zoloft) 50 mg PO DAILY [facility] Last Admin: 08/31/17 09:16 Dose: 50 mg Sertraline HCl (Zoloft) 25 mg PO ONETIME ONE Stop: 08/31/17 20:31 Last Admin: 08/31/17 21:34 Dose: 25 mg Sodium Chloride (Saline Flush) 10 ml FLUSH ONETIME PRN PRN Reason: IV FLUSH Stop: 09/07/17 12:00 Temazepam (Restoril) 15 mg PO BEDTIME PRN PRN Reason: Insomnia Warfarin Sodium (Coumadin) 2 mg PO ASDIRECTED [facility] Warfarin Sodium (Coumadin) 2 mg PO SuTuWeThSa [facility] Last Admin: 09/01/17 18:51 Dose: 2 mg Warfarin Sodium (Coumadin) 1 mg PO MoFr [facility] Last Admin: 08/31/17 17:12 Dose: 1 mg Warfarin Sodium (Coumadin) 7.5 mg PO ONETIME ONE Stop: 09/08/17 18:34 Last Admin: 09/08/17 19:46 Dose: 7.5 mg - Exam General: Alert, Cooperative, No Acute Distress HEENT: Pupils Equal, Pupils Reactive, EOMI, Mucous Membr. Moist/Isabella Neck: Supple, Trachea Midline Lungs: Clear to Auscultation, Normal Respiratory Effort, Decreased Breath Sounds Cardiovascular: Regular Rate, Regular Rhythm GI/Abdominal Exam: Soft, Non-Tender, No Organomegaly, No Distention, No Abnormal Bruit, No Mass, Abnormal Bowel Sounds (Female) Exam: Deferred Back Exam: Normal Inspection, Decreased Range of Motion Extremities: Normal Inspection, Normal Range of Motion, Non-Tender, No Pedal Edema, Normal Capillary Refill Peripheral Pulses: 0: Dorsalis Pedis (L), 2+: Dorsalis Pedis (R) Skin: Warm, Dry, Intact Neurological: No New Focal Deficit Psy/Mental Status: Alert, Normal Affect, Normal Mood - Problem List Review Problem List Initiated/Reviewed/Updated: Yes - My Orders Last 24 Hours: My Active Orders 09/08/17 18:00 Warfarin [Coumadin] 2 mg PO SuTuWeThSa 09/08/17 21:00 Heparin Sodium 5,000 units SUBCUT Q12HR 09/10/17 05:11 BMP [BASIC METABOLIC PANEL,BMP] [CHEM] AM INR,PT,PROTHROMBIN TIME [COAG] AM 09/10/17 07:00 CBC W/O DIFF,HEMOGRAM [HEME] MOTH@0709/11/17 18:00 Warfarin [Coumadin] 1 mg PO MoFr 09/14/17 07:00 CBC W/O DIFF,HEMOGRAM [HEME] MOTH@69909/14/17 19:00 Remove Patch 1 ea TRDERM Q7D 09/17/17 07:00 CBC W/O DIFF,HEMOGRAM [HEME] MOTH@69909/21/17 07:00 CBC W/O DIFF,HEMOGRAM [HEME] MOTH@69909/24/17 07:00 CBC W/O DIFF,HEMOGRAM [HEME] MOTH@69909/28/17 07:00 CBC W/O DIFF,HEMOGRAM [HEME] MOTH@07 - Plan Plan:: Impression: Acute CDI/CDAD, Unchanged - 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 - Query failed or incomplete treatment - Was on Flagyl/Vancomycin, Probiotics and Cholestyramine - She is able to tolerate diet ADA and high reside diet - Continue Oral Vancomycin (taper dose on discharge) - She would benefit with Fidaxomicin but too costly and hospital pharmacy do not carry it Subtherapeutic INR - INR 1.88--> 1.17--> now 1.27 - INR have been elevated - Received one time dose of Vit K low dose and warfarin was held - Resume home dose tonight - Continue Heparin 5000 mg Sub BID Aspiration Precautions - CXR: pneumonia versus atelectasis vs aspiration-> no infection symptoms, IS , monitor - F/u CXR this am: Shows atelectasis HTN, Unchanged - Acute on chronic - Still not controlled - Continue enalapril, BB, and lasix - She had no PRN hydralazine; will add it along with low dose BID and scheduled - Clonidine 0.1 mg patch Vulvar and Korin-Rectal Contact Dermatitis - 2/2 Fecal Incontinence - C. Diff Associated Diarrhea - Continue current treatment and prevention Resolved: Leukocytosis - 2/2 Infections Repeat Influenza A screen, positive - Received 5 day course of Tamiflu therapy UTI 2/2 Klebsiella pneumoniae - Received appropriate antibiotic with Rocephin for 4-5 days S/P Fall without LOC - Has gait abnormality - Head CT scan: No acute intra-cranial abnormality - CXR shows benign findings - She's alert and wake during my examination Chronic: GERD HLD Dementia Anxiety Diabetes mellitus type 2 CVA Plan: She remains clinically stable Continue oral Vancomycin; hospital don't carry Fidaxomicin Daily Labs Dietary consult DVT/GI prophylaxis Continue PT/OT and skin breakdown prevention or reduction Called [facility] and was told patient did not meet criteria for transfer. GI did not feel she needed to be shipped out, offered outpatient eval. Tried to reach ID but w/o any success. Spoke to her daughter and explained to her our d/c care plans. IDT to find out if okay for her to go to SNF/NH and have her see GI outpatient vs. [facility] placement. If okay to go NH, will d/c her in AM.
[2017-09-09] MEDS: hydrALAZINE 20 MG/ML SDV IVPUSH PRN (13:29)
[2017-09-09] MEDS: Warfarin 2 MG Tab PO SCH (17:12)
--- NOTE | 2017-09-09 19:51 | CR ---
Abdomen: Supine view of the abdomen was obtained. Scattered gas within small bowel and colon is seen. Several small bowel loops are mildly prominent. Left-sided pleural effusion is seen. Mild degenerative change is noted within the spine. Surgical clips are seen from prior cholecystectomy. Phleboliths are are seen within the pelvis. Impression: 1. Slightly prominent gas within small bowel most likely due to mild ileus. No colonic dilatation is seen. 2. Other incidental findings. Diagnostic code #3
[2017-09-09] MEDS: Simvastatin 20 MG Tab PO SCH (20:32)
[2017-09-09] MEDS ORDERED: Metoprolol Tartrate 5 MG/5 ML SDV IVPUSH PRN (22:51)
[2017-09-09] MEDS ORDERED: hydrALAZINE 20 MG/ML SDV IVPUSH PRN ×2 (22:51→22:57)
[2017-09-10] MEDS: Heparin Sodium 5,000 Units/ML Vial SUBCUT SCH (08:59)
[2017-09-10] MEDS: Vancomycin 50 MG/ML 150ML Oral Solution Kit PO SCH ×2 (08:59→12:30)
[2017-09-10] MEDS: Furosemide 40 MG Tab PO SCH (09:00)
[2017-09-10] MEDS ORDERED: hydrALAZINE 10 MG Tab PO SCH (09:00)
[2017-09-10] MEDS: Potassium Chloride 20 MEQ Tab.ER PO SCH ×2 (09:00→12:30)
[2017-09-10] MEDS: Sertraline 25 MG Tab PO SCH (09:00)
[2017-09-10] MEDS: guaiFENesin 600 MG Tab.ER PO SCH (09:02)
[2017-09-10] MEDS: Fenofibrate Nanocrystallized 145 MG Tab PO SCH (09:02)
[2017-09-10] MEDS: Metoprolol Tartrate 25 MG Tab PO SCH (09:02)
[2017-09-10 09:03] VITALS: BP 156/80
--- NOTE | 2017-09-10 09:12 | CR ---
Abdomen: Portable supine view of the abdomen was obtained. Comparison: Prior abdominal x-ray of 09/09/17. Slightly prominent loops of gas-filled small bowel are seen. Findings remain fairly stable from prior exam. Bony structures are osteopenic. Phleboliths seen within the pelvis. Impression: 1. Slightly prominent gas-filled loops of small bowel are again noted. Differential includes persisting ileus although at this time difficult to completely exclude a minimal partial small bowel obstruction. Diagnostic code #3
--- NOTE | 2017-09-10 09:59 | PCM.DCSUM1 ---
Discharge Summary - Hospital Course Brief History: This is an 89 year old female with past medical hx/o impaired vision and hearing, hypertension, hyperlipidemia, GERD, urinary retention, chronic back pain, chronic neck pain, history of CVA, history of left occipital infarct, type 2 diabetes, osteoarthritis, osteoporosis, anxiety, and dementia who was brought over to ED for evaluation after a recent fall and was admitted for acute diarrhea. - Discharge Data Discharge Date: 09/10/17 Discharge Disposition: DC/Tfer to [facility] Condition: Good - Discharge Diagnosis/Problem(s) (1) C. difficile diarrhea SNOMED Code(s): 2896321001766 ICD Code: A04.72 - ENTEROCOLITIS D/T CLOSTRIDIUM DIFFICILE, NOT SPCF RECUR Status: Acute Priority: High (2) Excoriation of buttock SNOMED Code(s): 851065504 ICD Code: S30.810A - ABRASION OF LOWER BACK AND PELVIS, INITIAL ENCOUNTER Status: Acute Priority: High Qualifiers: Encounter type: initial encounter Qualified Code(s): S30.810A - Abrasion of lower back and pelvis, initial encounter (3) Ileus SNOMED Code(s): 113213650 ICD Code: K56.7 - ILEUS, UNSPECIFIED Status: Acute (4) Supratherapeutic INR SNOMED Code(s): 551506688 ICD Code: R79.1 - ABNORMAL COAGULATION PROFILE Status: Resolved (5) Subtherapeutic international normalized ratio (INR) SNOMED Code(s): 313274487 ICD Code: R79.1 - ABNORMAL COAGULATION PROFILE Status: Resolved (6) Status post fall SNOMED Code(s): 710334406 ICD Code: Z91.81 - HISTORY OF FALLING Status: Resolved (7) Hypertension SNOMED Code(s): 06412374 ICD Code: I10 - ESSENTIAL (PRIMARY) HYPERTENSION Status: Acute Priority: High Qualifiers: Hypertension type: essential hypertension Qualified Code(s): I10 - Essential (primary) hypertension (8) Influenza A SNOMED Code(s): 756731992 ICD Code: J10.1 - FLU DUE TO OTH IDENT INFLUENZA VIRUS W OTH RESP MANIFEST Status: Acute Priority: High (9) UTI (lower urinary tract infection) SNOMED Code(s): 1284436 ICD Code: N39.0 - URINARY TRACT INFECTION, SITE NOT SPECIFIED Status: Acute Priority: High - Patient Summary/Data Operative Procedure(s) Performed: None Complications: None Consults: Consultations 08/30/17 18:12 Consult to Case Management [CONS] Routine 08/31/17 09:00 Consult to Occupational Therapy [OT Evaluation and Treatment] [CONS] Routine Consult to Physical Therapy [PT Evaluation and Treatment] [CONS] Routine 09/02/17 14:48 Consult to Speech Language Pathology [PSYCHOLOGIST PERSONNEL Evaluation and Treatment] [CONS] Routine 09/03/17 18:36 Consult to Physical Therapy [PT Evaluation and Treatment] [CONS] Routine 09/07/17 16:20 Consult to Dietary [Consult to Patient Attendant] [CONS] Routine Labs Pending at D/C: None Recommended Follow-up Testing/Procedures: None Planned Operative Procedure(s) after DC: None Hospital Course: She was primarily admitted for evaluation of acute diarrhea. She carried a history of chronic diarrhea according to her daughter. However diagnostic workup and labs showed patient had urinary tract infection and influenza A. From there, the patient received appropriate treatment to include antiviral agent and antibiotic to resolve her Influenza A and Klebsiela pneumoniae infections respectively. As for the her diarrhea, she was found positive on C. difficile testing. She received a combination of IV Flagyl and oral Vancomycin plus probiotic and cholestyramine to treat her C. difficile associated diarrhea. Her response to treatment was slow. When I took over her care, we adjusted her regimen and keep oral vancomycin as her main treatment. Her diet was advanced to a high residue to diet and thereafter the patient responded to treatment. Her hospital course was complicated by a mild ileus which we felt was due to her underlying C. difficile. However physical examination revealed patient had no acute abdomen and was positive for flatulence. Her last bowel movement showed 4 smeared and pasty-like stool. During this hospitalization, we did try to transfer her out to [facility] for upper level of care. Unfortunately she did not meet criteria for lateral transfer. We were able to get a hold of ID but GI recommended outpatient evaluation instead. Patient was clinically stable upon discharge. Her diarrhea seemed to have improved. Patient was discharged with oral vancomycin taper dose regimen and was advised to take Kefir based yogurt as an adjunct for her C. difficile treatment. We reviewed her home medications and held multiple medications that would contribute to her diarrhea. Patient was further advised to follow-up for GI and with her PCP after discharge. The patient expressed understanding and in agreement with the plans as discussed above. All questions were answered. - Patient Instructions Diet: Usual Diet as Tolerated, Diabetic Diet Activity: Cough & Deep Breathe Driving: Do Not Drive Notify Provider of: Fever, Increased Pain, Nausea and/or Vomiting Other/Special Instructions: - Please take all new medications as directed. - Recommend you take OTC Kefir Yogurt TID to improve colonic rodrigo. - Check your blood pressure x3/day and at least 4x a week. Show log to your family doctor on follow up appointment. - Recommned follow up Abdominal x-ray for mild ileus Thursday-Thursday. - Keep GI appoint as scheduled. - Call or follow up with your family doctor in 1 week after discharge. - Comeback or seek immediate care should your symptom persists or gets worse - Discharge Plan Prescriptions/Med Rec: Famotidine 20 mg PO DAILY #60 tablet Vancomycin [First-Vancomycin 50 Compounding Kit] 500 mg PO ASDIRECTED #95 bottle Home Medications: Home Meds Cholecalciferol (Vitamin D3) [Vitamin D3] 1,000 unit PO DAILY 11/17/14 [History] Enalapril [Vasotec] 20 mg PO BID 11/17/14 [History] Fenofibrate Nanocrystallized [Tricor] 145 mg PO DAILY 11/17/14 [History] Metoprolol Tartrate 12.5 mg PO BID 11/17/14 [History] Multivitamin with Minerals [Multivitamins with Minerals] 1 each PO DAILY [History] Pravastatin [Pravachol] 40 mg PO BEDTIME 11/17/14 [History] Sertraline HCl [Zoloft] 50 mg PO DAILY 11/17/14 [History] SitaGLIPtin [Januvia] 100 mg PO DAILY 11/17/14 [History] Warfarin [Coumadin] 1 mg PO ASDIRECTED 11/17/14 [History] Psyllium [Metamucil] 1.04 gm PO TID PRN 01/21/15 [History] Witch Nikky [Tucks] 1 pad TOP TID PRN 01/21/15 [History] Furosemide [Lasix] 40 mg PO DAILY 04/16/17 [History] Acetaminophen [Tylenol Arthritis] 1 tab PO Q6HR PRN 08/29/17 [History] Ondansetron [Zofran ODT] 4 mg SL Q6HR PRN 08/29/17 [History] Warfarin [Coumadin] 2 mg PO ASDIRECTED 08/29/17 [History] Docusate Sodium [Colace] 100 mg PO DAILY PRN 08/30/17 [History] Loperamide [Imodium] 2 mg PO PRN 08/30/17 [History] Insulin Aspart [NovoLOG] 5 units SQ TIDMEALS 09/02/17 [History] Insulin Glarg,Human.Rec.Analog [Lantus] 26 units SQ DAILY 09/02/17 [History] Famotidine 20 mg PO DAILY #60 tablet 09/10/17 [Rx] Vancomycin [First-Vancomycin 50 Compounding Kit] 500 mg PO ASDIRECTED #95 bottle 09/10/17 [Rx] Referrals: Fly German MD [Primary Care Provider] - (Follow-up in 1 week with .) - General Info Date of Service: 09/10/17 Admission Dx/Problem (Free Text: UTI, Influenza Subjective Update: Follow Up Functional Status: Reports: Pain Controlled, Tolerating Diet, Ambulating, Urinating. Denies: New Symptoms - Review of Systems General: Denies: Fever, Weakness, Fatigue, Malaise, Chills HEENT: Reports: No Symptoms Pulmonary: Denies: Shortness of Breath Cardiovascular: Denies: Chest Pain Gastrointestinal: Reports: Flatus. Denies: Abdominal Pain, Difficulty Swallowing, Hematochezia, Nausea, Vomiting Genitourinary: Reports: No Symptoms Musculoskeletal: Reports: No Symptoms Neurological: Reports: Confusion (baseline confusion), Gait Disturbance. Denies : Difficulty Walking, Weakness Psychiatric: Denies: No Symptoms, Depression, Anxiety, Hallucinations Systems Review Comment: No significant overnight or acute issues. She is doing just fine. She only had 4 tiny smeared stool overnight. She has no new complaints. Her BP remains elevated. She is otherwise afebrile w/o leukocytosis. Her INR is now at therapeutic range. - Patient Data Vitals - Most Recent: Last Vital Signs Temp 36.5 C 09/10/17 08:42 Pulse 77 09/10/17 09:02 Resp 32 H 09/10/17 08:42 BP 156/80 H 09/10/17 09:02 Pulse Ox 93 L 09/10/17 08:42 Weight - Most Recent: 64.728 kg I&O - Last 24 hours: Intake & Output 09/09/17 09/10/17 09/10/17 22:59 06:59 14:59 Intake Total 320 450 Balance 320 450 Lab Results - Last 24 hrs: Laboratory Results - last 24 hr 09/09/17 09/09/17 09/09/17 Range/Units 10:07 10:07 10:07 WBC 6.13 (3.98-10.04) K/mm3 RBC 4.51 (3.98-5.22) M/mm3 Hgb 12.5 (11.2-15.7) gm/L Hct 39.5 (34.1-44.9) % MCV 87.6 (79.4-94.8) fl MCH 27.7 (25.6-32.2) pg MCHC 31.6 L (32.2-35.5) g/dl RDW Std Deviation 44.0 (36.4-46.3) fL Plt Count 324 (182-369) K/mm3 MPV 9.6 (9.4-12.3) fl Neut % (Auto) 75.9 H (34.0-71.1) % Lymph % (Auto) 8.5 L (19.3-51.7) % Hand % (Auto) 10.4 (4.7-12.5) % Eos % (Auto) 4.4 (0.7-5.8) Baso % (Auto) 0.3 (0.1-1.2) % Neut # (Auto) 4.65 (1.56-6.13) K/mm3 Lymph # (Auto) 0.52 L (1.18-3.74) K/mm3 Hand # (Auto) 0.64 H (0.24-0.36) K/mm3 Eos # (Auto) 0.27 (0.04-0.36) K/mm3 Baso # (Auto) 0.02 (0.01-0.08) K/mm3 Manual Slide Review Abnormal smear PT 14.0 H (8.0-13.0) SECONDS INR 1.27 Sodium 144 (136-145) mEq/L Potassium 3.8 (3.5-5.1) mEq/L Chloride 108 H (98-107) mEq/L Carbon Dioxide 30 (21-32) mEq/L Anion Gap 9.8 (5-15) BUN 17 (7-18) mg/dL Creatinine 0.9 (0.55-1.02) mg/dL Est Cr Clr Drug Dosing 30.44 mL/min Estimated GFR (MDRD) 59 (>60) mL/min BUN/Creatinine Ratio 18.9 H (14-18) Glucose 151 H (83-115) mg/dL POC Glucose (83-110) mg/dL Calcium 8.5 (8.5-10.1) mg/dL 09/09/17 09/10/17 09/10/17 Range/Units 21:19 06:09 06:09 WBC 5.72 (3.98-10.04) K/mm3 RBC 4.43 (3.98-5.22) M/mm3 Hgb 12.2 (11.2-15.7) gm/L Hct 38.7 (34.1-44.9) % MCV 87.4 (79.4-94.8) fl MCH 27.5 (25.6-32.2) pg MCHC 31.5 L (32.2-35.5) g/dl RDW Std Deviation 43.2 (36.4-46.3) fL Plt Count 292 (182-369) K/mm3 MPV 10.3 (9.4-12.3) fl Neut % (Auto) 68.5 (34.0-71.1) % Lymph % (Auto) 12.4 L (19.3-51.7) % Hand % (Auto) 14.0 H (4.7-12.5) % Eos % (Auto) 4.0 (0.7-5.8) Baso % (Auto) 0.2 (0.1-1.2) % Neut # (Auto) 3.92 (1.56-6.13) K/mm3 Lymph # (Auto) 0.71 L (1.18-3.74) K/mm3 Hand # (Auto) 0.80 H (0.24-0.36) K/mm3 Eos # (Auto) 0.23 (0.04-0.36) K/mm3 Baso # (Auto) 0.01 (0.01-0.08) K/mm3 Manual Slide Review PT 29.1 H (8.0-13.0) SECONDS INR 2.52 Sodium (136-145) mEq/L Potassium (3.5-5.1) mEq/L Chloride (98-107) mEq/L Carbon Dioxide (21-32) mEq/L Anion Gap (5-15) BUN (7-18) mg/dL Creatinine (0.55-1.02) mg/dL Est Cr Clr Drug Dosing mL/min Estimated GFR (MDRD) (>60) mL/min BUN/Creatinine Ratio (14-18) Glucose (83-115) mg/dL POC Glucose 118 H (83-110) mg/dL Calcium (8.5-10.1) mg/dL 09/10/17 09/10/17 Range/Units 06:09 06:53 WBC (3.98-10.04) K/mm3 RBC (3.98-5.22) M/mm3 Hgb (11.2-15.7) gm/L Hct (34.1-44.9) % MCV (79.4-94.8) fl MCH (25.6-32.2) pg MCHC (32.2-35.5) g/dl RDW Std Deviation (36.4-46.3) fL Plt Count (182-369) K/mm3 MPV (9.4-12.3) fl Neut % (Auto) (34.0-71.1) % Lymph % (Auto) (19.3-51.7) % Hand % (Auto) (4.7-12.5) % Eos % (Auto) (0.7-5.8) Baso % (Auto) (0.1-1.2) % Neut # (Auto) (1.56-6.13) K/mm3 Lymph # (Auto) (1.18-3.74) K/mm3 Hand # (Auto) (0.24-0.36) K/mm3 Eos # (Auto) (0.04-0.36) K/mm3 Baso # (Auto) (0.01-0.08) K/mm3 Manual Slide Review PT (8.0-13.0) SECONDS INR Sodium 144 (136-145) mEq/L Potassium 3.5 (3.5-5.1) mEq/L Chloride 107 (98-107) mEq/L Carbon Dioxide 31 (21-32) mEq/L Anion Gap 9.5 (5-15) BUN 14 (7-18) mg/dL Creatinine 0.9 (0.55-1.02) mg/dL Est Cr Clr Drug Dosing 30.44 mL/min Estimated GFR (MDRD) 59 (>60) mL/min BUN/Creatinine Ratio 15.6 (14-18) Glucose 119 H (83-115) mg/dL POC Glucose 109 (83-110) mg/dL Calcium 8.5 (8.5-10.1) mg/dL Med Orders - Current: Current Medications Acetaminophen (Tylenol) 650 mg PO Q6H PRN PRN Reason: Pain Last Admin: 09/07/17 21:00 Dose: 650 mg Hydrocodone Bitart/Acetaminophen ([place] 325-5 Mg) 1 tab PO Q6H PRN PRN Reason: Pain Last Admin: 09/06/17 23:35 Dose: 1 tab Albuterol/Ipratropium (Duoneb 3.0-0.5 Mg/3 Ml) 3 ml NEB Q6HRRT PRN PRN Reason: wheezing/SOB/cough Last Admin: 09/06/17 23:43 Dose: 3 ml Clonidine HCl (Catapres-Tts 1) 0.1 mg TRDERM Q7D [facility] Last Admin: 09/07/17 21:01 Dose: 0.1 mg Enalapril Maleate (Vasotec) 20 mg PO BID [facility] Last Admin: 09/10/17 09:01 Dose: 20 mg Fenofibrate (Tricor) 145 mg PO DAILY [facility] Last Admin: 09/10/17 09:02 Dose: 145 mg Furosemide (Lasix) 40 mg PO DAILY [facility] Last Admin: 09/10/17 09:00 Dose: 40 mg Guaifenesin (Mucinex) 600 mg PO BID [facility] Last Admin: 09/10/17 09:02 Dose: 600 mg Guaifenesin/Phenylephrine HCl (Robitussin Dm) 10 ml PO Q4H PRN PRN Reason: Cough Last Admin: 09/06/17 10:14 Dose: 10 ml Heparin Sodium (Porcine) (Heparin Sodium) 5,000 units SUBCUT Q12HR [facility] Last Admin: 09/10/17 08:59 Dose: 5,000 units Hydralazine HCl (Apresoline) 10 mg IVPUSH Q4H PRN PRN Reason: Hypertension Last Admin: 09/09/17 13:29 Dose: 10 mg Hydralazine HCl (Apresoline) 10 mg PO Q12HR [facility] Last Admin: 09/10/17 08:59 Dose: 10 mg Hydralazine HCl (Apresoline) 10 mg IVPUSH Q4H PRN PRN Reason: Hypertension Insulin Aspart (Novolog) 0 unit SUBCUT BID@0700,2100 [facility] PRN Reason: Protocol Last Admin: 09/09/17 21:00 Dose: Not Given Magnesium Sulfate (Pharmacy To Dose - Magnesium Replacement) 1 dose .XX ASDIRECTED [facility] Metoprolol Tartrate (Lopressor) 25 mg PO Q12HR [facility] Last Admin: 09/10/17 09:02 Dose: 25 mg Metoprolol Tartrate (Lopressor) 5 mg IVPUSH Q4H PRN PRN Reason: Tachycardia Metoprolol Tartrate (Lopressor) 5 mg IVPUSH Q4H PRN PRN Reason: Tachycardia Miscellaneous Information (Remove Patch) 1 ea TRDERM Q7D [facility] Multi-Ingred Cream/Lotion/Oil/Oint (Zinc Oxide) 0 gm TOP Q1H PRN PRN Reason: Diarrhea Last Admin: 09/09/17 15:31 Dose: 1 applic Ondansetron HCl (Zofran) 4 mg IVPUSH Q4H PRN PRN Reason: Nausea/Vomiting Last Admin: 09/07/17 08:48 Dose: 4 mg Diphenhyd/Lidocaine/ (Nystatin Mouthwash) 0 each PO QID PRN PRN Reason: Sore Throat Potassium Chloride (Pharmacy To Dose - Potassium Replacement) 1 dose .XX ASDIRECTED [facility] Potassium Chloride (Klor-Con M20) 40 meq PO Q4H [facility] Stop: 09/10/17 13:01 Last Admin: 09/10/17 09:00 Dose: 40 meq Sertraline HCl (Zoloft) 75 mg PO DAILY [facility] Last Admin: 09/10/17 09:00 Dose: 75 mg Simvastatin (Zocor) 20 mg PO BEDTIME [facility] Last Admin: 09/09/17 20:32 Dose: 20 mg Sodium Chloride (Saline Flush) 10 ml FLUSH ASDIRECTED PRN PRN Reason: Keep Vein Open Last Admin: 08/29/17 19:16 Dose: 10 ml Temazepam (Restoril) 15 mg PO BEDTIME PRN PRN Reason: Insomnia Last Admin: 09/07/17 21:12 Dose: 15 mg Vancomycin HCl (First-Vancomycin 50 Compounding Kit) 500 mg PO QID [facility] Last Admin: 09/10/17 08:59 Dose: 10 ml Vitamin A/Vitamin D (Vitamin A & D) 0 gm TOP Q2H PRN PRN Reason: Apply to excoriated skin Last Admin: 09/09/17 15:10 Dose: 1 applic Warfarin Sodium (Coumadin) 2 mg PO SuTuWeThSa [facility] Last Admin: 09/09/17 17:12 Dose: 2 mg Warfarin Sodium (Coumadin) 1 mg PO [facility] Edda Sher (Tucks) 1 pad TOP TID PRN PRN Reason: perineal Last Admin: 09/06/17 10:20 Dose: 1 pad Discontinued Medications Cholestyramine Resin (Prevalite Packet) 4 gm PO BID [facility] Last Admin: 09/05/17 09:43 Dose: 4 gm Cholestyramine Resin (Prevalite Packet) 4 gm PO TID [facility] Last Admin: 09/07/17 08:58 Dose: 4 gm Clonidine HCl (Catapres) 0.1 mg PO ONETIME ONE Stop: 09/08/17 18:32 Last Admin: 09/08/17 19:43 Dose: 0.1 mg Enoxaparin Sodium (Lovenox) 30 mg SUBCUT DAILY [facility] Last Admin: 09/03/17 08:32 Dose: 30 mg Hydralazine HCl (Apresoline) 20 mg IVPUSH Q6H PRN PRN Reason: Hypertension Last Admin: 09/07/17 18:59 Dose: 20 mg Hydralazine HCl (Apresoline) 20 mg IVPUSH Q4H PRN PRN Reason: Hypertension Sodium Chloride (Normal Saline) 1,000 mls @ 999 mls/hr IV ONETIME ONE Stop: 08/29/17 19:37 Last Admin: 08/29/17 21:09 Dose: Not Given Sodium Chloride (Normal Saline) 500 mls @ 500 mls/hr IV .BOLUS ONE Stop: 08/29/17 19:40 Last Admin: 08/29/17 19:15 Dose: 500 mls/hr Sodium Chloride (Normal Saline) 1,000 mls @ 100 mls/hr IV ASDIRECTED [facility] Sodium Chloride (Normal Saline) 1,000 mls @ 150 mls/hr IV ASDIRECTED [facility] Stop: 08/30/17 05:00 Last Admin: 08/30/17 01:18 Dose: 150 mls/hr Sodium Chloride (Normal Saline) 1,000 mls @ 100 mls/hr IV ASDIRECTED [facility] Last Admin: 08/30/17 11:14 Dose: 100 mls/hr Metronidazole 500 mg/ Premix 100 mls @ 100 mls/hr IV Q8H [facility] Last Admin: 09/07/17 08:59 Dose: 100 mls/hr Metronidazole (Flagyl 500 Mg In Ns 100 Ml) Confirm Administered Dose 100 mls @ as directed .ROUTE .STK-MED ONE Stop: 08/30/17 17:39 Last Admin: 08/30/17 17:55 Dose: Not Given Sodium Chloride (Normal Saline) 1,000 mls @ 75 mls/hr IV ASDIRECTED [facility] Last Admin: 09/01/17 03:24 Dose: 75 mls/hr Ceftriaxone Sodium 2 gm/ (Sodium Chloride) 100 mls @ 200 mls/hr IV ONETIME ONE Stop: 08/30/17 19:29 Last Admin: 08/30/17 19:05 Dose: 200 mls/hr Ceftriaxone Sodium 1 gm/ (Dextrose/Water) 100 mls @ 200 mls/hr IV Q24H [facility] Stop: 09/01/17 21:30 Last Admin: 09/01/17 18:36 Dose: 200 mls/hr Sodium Chloride (Normal Saline) 100 mls @ 75 mls/hr IV ASDIRECTED [facility] Stop: 09/07/17 12:00 Magnesium Sulfate 2 gm/ Premix 50 mls @ 50 mls/hr IV ONETIME ONE Stop: 09/07/17 19:44 Last Admin: 09/07/17 19:00 Dose: 50 mls/hr Insulin Aspart (Novolog) 0 unit SUBCUT BID [facility] PRN Reason: Protocol Last Admin: 08/30/17 08:24 Dose: Not Given Iopamidol (Isovue-370 (76%)) 100 ml IVPUSH ONETIME ONE Stop: 09/07/17 08:18 Last Admin: 09/07/17 12:41 Dose: Not Given Metoprolol Tartrate (Lopressor) 12.5 mg PO BID [facility] Last Admin: 09/03/17 08:45 Dose: 12.5 mg Metoprolol Tartrate (Lopressor) 12.5 mg PO ONETIME ONE Stop: 08/30/17 14:16 Last Admin: 08/30/17 14:12 Dose: 12.5 mg Metoprolol Tartrate (Lopressor) 25 mg PO Q12HR [facility] Metoprolol Tartrate (Lopressor) 25 mg PO Q12HR [facility] Metoprolol Tartrate (Lopressor) 12.5 mg PO Q12HR [facility] Last Admin: 09/06/17 09:56 Dose: 12.5 mg Januvia 100mg Own (Med) 1 each PO DAILY [facility] Non-Formulary Medication (Acetaminophen) 1 tab PO Q6HR PRN PRN Reason: Pain (moderate 4-6) Non-Formulary Medication (Enalapril) 10 mg PO BID [facility] Non-Formulary Medication (Sitagliptin) 100 mg PO DAILY [facility] Non-Formulary Medication (Warfarin) 1 mg PO ASDIRECTED [facility] Oseltamivir Phosphate (Tamiflu) 30 mg PO BID [facility] Last Admin: 08/31/17 09:16 Dose: 30 mg Oseltamivir Phosphate (Tamiflu) 30 mg PO DAILY [facility] Stop: 09/02/17 12:00 Last Admin: 09/02/17 10:43 Dose: 30 mg Oseltamivir Phosphate (Tamiflu) 30 mg PO ONETIME ONE Stop: 09/03/17 09:46 Last Admin: 09/03/17 10:07 Dose: 30 mg Phytonadione (Aquamephyton) 2.5 mg PO ONETIME ONE Stop: 09/07/17 07:21 Last Admin: 09/07/17 08:54 Dose: 2.5 mg Pneumococcal Polyvalent Vaccine (Pneumovax 23) 0.5 ml IM .ONCE ONE Stop: 09/01/17 09:06 Saccharomyces Boulardii (Florastor) 250 mg PO BID [facility] Last Admin: 09/07/17 08:41 Dose: 250 mg Sertraline HCl (Zoloft) 50 mg PO DAILY [facility] Last Admin: 08/31/17 09:16 Dose: 50 mg Sertraline HCl (Zoloft) 25 mg PO ONETIME ONE Stop: 08/31/17 20:31 Last Admin: 08/31/17 21:34 Dose: 25 mg Sodium Chloride (Saline Flush) 10 ml FLUSH ONETIME PRN PRN Reason: IV FLUSH Stop: 09/07/17 12:00 Temazepam (Restoril) 15 mg PO BEDTIME PRN PRN Reason: Insomnia Warfarin Sodium (Coumadin) 2 mg PO ASDIRECTED [facility] Warfarin Sodium (Coumadin) 2 mg PO SuTuWeThSa [facility] Last Admin: 09/01/17 18:51 Dose: 2 mg Warfarin Sodium (Coumadin) 1 mg PO MoFr [facility] Last Admin: 08/31/17 17:12 Dose: 1 mg Warfarin Sodium (Coumadin) 7.5 mg PO ONETIME ONE Stop: 09/08/17 18:34 Last Admin: 09/08/17 19:46 Dose: 7.5 mg - Exam General: Reports: Alert, Cooperative, No Acute Distress HEENT: Reports: Pupils Equal, Pupils Reactive, EOMI, Mucous Membr. Moist/[place] Neck: Reports: Supple, Trachea Midline, No JVD Lungs: Reports: Clear to Auscultation, Normal Respiratory Effort Cardiovascular: Reports: Regular Rate, Regular Rhythm GI/Abdominal Exam: Normal Bowel Sounds, Soft, Non-Tender, No Organomegaly, No Distention, No Abnormal Bruit. No: Distended, Guarding, Rigid, Rebound (Female) Exam: Deferred Rectal (Female) Exam: Deferred Back Exam: Reports: Normal Inspection, Decreased Range of Motion Extremities: Normal Inspection, Normal Range of Motion, Non-Tender, No Pedal Edema, Normal Capillary Refill Skin: Reports: Warm, Dry, Intact Neurological: Reports: No New Focal Deficit Psy/Mental Status: Reports: Alert, Normal Affect, Normal Mood *Q Meaningful Use (DIS) - VTE *Q VTE Criteria *Q: - Stroke *Q Stroke Criteria *Q: - AMI *Q AMI Criteria *Q:
[2017-09-10] MEDS ORDERED: Pneumococcal Polyvalent-23 Vaccine 0.5 ML SDV IM ONE (10:27)
[2017-09-10] MEDS: Insulin Aspart 100 Units/ML 3 ML Pen SUBCUT SCH (10:43)
== END 2017-09-10 13:05 | DRG 372 ==
LOC: JD.ED 18:10 → JD.MS 21:50 → OBSVTOIN 08-30 08:54 → JD.MS 08-30 08:54
PROVIDERS: ADMIT Internal Medicine Cardiovascular Disease; ATTEND Internal Medicine Cardiovascular Disease
PROC: 3E0234Z Introduction of Serum, Toxoid and Vaccine into Muscle, Percutaneous Approach (ICD-10-PCS; principal; 2017-09-10)
DX: T79.6XXA Traumatic ischemia of muscle, initial encounter (principal); N17.9 Acute kidney failure, unspecified; A04.72 Enterocolitis due to Clostridium difficile, not specified as recurrent; K56.7 Ileus, unspecified; N39.0 Urinary tract infection, site not specified; J90 Pleural effusion, not elsewhere classified; B96.1 Klebsiella pneumoniae [K. pneumoniae] as the cause of diseases classified elsewhere; E78.00 Pure hypercholesterolemia, unspecified; J09.X2 Influenza due to identified novel influenza A virus with other respiratory manifestations; S30.810A Abrasion of lower back and pelvis, initial encounter; S40.811A Abrasion of right upper arm, initial encounter; S00.81XA Abrasion of other part of head, initial encounter; W18.30XA Fall on same level, unspecified, initial encounter; Y92.099 Unspecified place in other non-institutional residence as the place of occurrence of the external cause; R79.1 Abnormal coagulation profile; I10 Essential (primary) hypertension; F03.90 Unspecified dementia, unspecified severity, without behavioral disturbance, psychotic disturbance, mood disturbance, and anxiety; M25.551 Pain in right hip; M25.511 Pain in right shoulder; E78.5 Hyperlipidemia, unspecified; F41.9 Anxiety disorder, unspecified; E11.9 Type 2 diabetes mellitus without complications; L30.8 Other specified dermatitis; R26.9 Unspecified abnormalities of gait and mobility; Z91.040 Latex allergy status; Z88.8 Allergy status to other drugs, medicaments and biological substances; Z79.899 Other long term (current) drug therapy; Z79.01 Long term (current) use of anticoagulants; Z86.73 Personal history of transient ischemic attack (TIA), and cerebral infarction without residual deficits; Z23 Encounter for immunization
CPT/HCPCS: 36415 ×2; 70450; 71250; 72125; 73030; 73080; 73130; 74176; 80048; 80053; 81001; 82550; 82962; 83605; 83690; 83735; 84484; 85025 ×2; 85610; 85730; 86140; 86738; 87040 ×2; 87086; 87493 ×4; 87804 ×2; 93005; 96360; 96361; 99285; G0378 ×2; J7040 ×2; J7050; 51798; 71046; 71046-26; 74018; 74018-26; 87070; 87088; 87186; 87205; 90732; 92610-GN; 94640; 94760; 94761; 97110-GO; 97110-GP; 97112-GP; 97116-GP; 97162-GP; 97166-GO; 97530-GO; 97530-GP; 97535-GO; 99283-25; A9270-GY; G0009; J0360; J0696; J1644; J1650; J1815-GY; J2405; J3370; J3475; J7030; J7060